=== PATIENT | male | born 1950 | race Caucasian/White ===

== ENCOUNTER → 2017-11-09 | Outpatient (CLI) | payer OTHER ==
--- NOTE | 2017-11-09 14:52 | XR ---
EXAMINATION TYPE: XR chest 2V DATE OF EXAM: 11/09/2017 COMPARISON: 12/13/2013 INDICATION: Physical, history of smoking TECHNIQUE: Frontal and lateral views of the chest are obtained. FINDINGS: The heart size is normal. The pulmonary vasculature is normal. The lungs are clear. There is hyperinflation. COPD could be considered. Some flattening the diaphrag ms is present. IMPRESSION: 1. Hyperinflation. Consider early emphysematous change.
== END | disposition home or self-care (01) ==
LOC: RADXRMAIN 12:44
PROVIDERS: ATTEND Family Medicine
DX: R91.8 Other nonspecific abnormal finding of lung field (principal)
CPT/HCPCS: 71046

== ENCOUNTER → 2018-02-11 | Outpatient (CLI) | payer MEDICARE ==
[2018-02-11 11:48] LABS: HCT 53.3 % (39.0-53.0); HGB 17.1 gm/dL (13.0-17.5); MCH 37.2 pg (25.0-35.0); MCHC 32.1 g/dL (31.0-37.0); Macrocytosis Marked; Mean Platelet Volume 7.6; Platelet Count 209 k/uL (150-450); RBC 4.59 m/uL (4.30-5.90); RDW 14.2 % (11.5-15.5); WBC 6.5 k/uL (3.8-10.6)
[2018-02-11 12:03] LABS: Anion Gap 8 mmol/L; Blood Urea Nitrogen 8 mg/dL (9-20); Carbon Dioxide 28 mmol/L (22-30); Chloride 103 mmol/L (98-107); Sodium 139 mmol/L (137-145)
== END | disposition home or self-care (01) ==
LOC: LABPAT 10:27
PROVIDERS: ATTEND Internal Medicine Interventional Cardiology
DX: Z01.812 Encounter for preprocedural laboratory examination (principal); I25.10 Atherosclerotic heart disease of native coronary artery without angina pectoris; I48.0 Paroxysmal atrial fibrillation; I11.0 Hypertensive heart disease with heart failure; I50.20 Unspecified systolic (congestive) heart failure
CPT/HCPCS: 36415; 80051; 82565; 84520; 85027; 86850; 86900; 86901

== ENCOUNTER 2018-02-28 06:27 | Day surgery (SDC) | payer MEDICARE ==
[~2018-02-28 06:27] MED LIST: ALPRAZolam 0.25 MG TAB PO PRN; ALPRAZolam 0.5 MG TAB PO PRN; ATORVASTATIN 80 MG TAB PO ONE; NITROGLYCERIN SL TABS 0.4 MG TAB SUBLINGUAL PRN; SODIUM CHLORIDE 0.9% 1,000 ML in EMPTY BAG 1 BAG IV ONE
[2018-02-28] MEDS ORDERED: ASPIRIN 325 MG TAB PO ONE (07:00)
[2018-02-28] MEDS ORDERED: MIDAZOLAM 2 MG/2 ML VIAL ONE (07:29)
[2018-02-28] MEDS ORDERED: ETOMIDATE 2 MG/ML 10 ML VIAL ONE (07:29)
[2018-02-28] MEDS ORDERED: fentaNYL (PF) 50 MCG/ML 2 ML AMP ONE (07:29)
[2018-02-28] MEDS ORDERED: IV FLUID CONTINUATION 1,000 ML IV ONE (07:37)
[2018-02-28] MEDS ORDERED: BENZOCAINE SPRAY 1 CAN MUCOUS MEM ONE ×2 (07:47→07:58)
[2018-02-28] MEDS ORDERED: LIDOCAINE 1% INJ 10MG/ML (20 ML MDV) ONE (08:11)
[2018-02-28] MEDS ORDERED: VERAPAMIL 2.5 MG/ML 2 ML AMP ONE (08:29)
[2018-02-28] MEDS ORDERED: LIDOCAINE 1% INJ 10MG/ML (20 ML MDV) SQ ONE (08:34)
[2018-02-28] MEDS ORDERED: MIDAZOLAM 2 MG/2 ML VIAL IV ONE (08:35)
[2018-02-28] MEDS ORDERED: HEPARIN SODIUM 1,000 UN/ML (10ML VL) ONE (08:35)
[2018-02-28] MEDS ORDERED: VERAPAMIL SYRINGE (5 MG/10 ML) INTRAARTER ONE (08:36)
[2018-02-28] MEDS ORDERED: BIVALIRUDIN 250 MG in SODIUM CHLORIDE 0.9% 50 ML IV ONE (08:49)
[2018-02-28] MEDS ORDERED: BIVALIRUDIN BOLUS 250 MG/50 ML IV ONE (08:49)
--- NOTE | 2018-02-28 08:49 | CE ---
CARDIAC ELECTROPHYSIOLOGY REPORT DATE OF SERVICE: February 28, 2018. PROCEDURE PERFORMED: Cardioversion of atrial fibrillation. INDICATION: This is a 68-year-old gentleman who was diagnosed recently with atrial fibrillation with RVR and also severe cardiomyopathy with EF between 10% to 15%. The JAJA is to rule out any cardiac source of embolization. COMPLICATION: None. LEVEL OF SEDATION: Deep sedation was performed with anesthesiologist in the room. PROCEDURE DESCRIPTION: After a transesophageal echocardiogram was performed and left atrial appendage was ruled out, we proceeded with cardioversion. The patient converted from atrial fibrillation to normal sinus mechanism using 200 joules on first attempt. CONCLUSION: Successful cardioversion of atrial fibrillation to normal sinus mechanism using 200 joules on first attempt. MMODL / IJN: [id number] /
[2018-02-28] MEDS ORDERED: TICAGRELOR 90 MG TAB ONE (08:53)
[2018-02-28] MEDS ORDERED: TICAGRELOR 90 MG TAB PO ONE (08:54)
[2018-02-28] MEDS ORDERED: IOPAMIDOL-370 125ML BTL INJ ONE (09:01)
[2018-02-28] MEDS ORDERED: PANTOPRAZOLE 40 MG TABLET PO PRN (09:06)
[2018-02-28] MEDS ORDERED: ZOLPIDEM 5 MG TAB PO PRN (09:07)
[2018-02-28] MEDS ORDERED: MAG HYDROX/AL HYDROX/SIMETH 30 ML CUP PO PRN (09:07)
[2018-02-28] MEDS ORDERED: NITROGLYCERIN SL TABS 0.4 MG TAB SUBLINGUAL PRN (09:07)
[2018-02-28] MEDS ORDERED: RX INFO: IV CONTRAST WAS GIVEN 1 EACH MISC MISCELLANE PRN (09:07)
[2018-02-28] MEDS ORDERED: ATROPINE SULFATE 0.1 MG/ML 10ML SYRINGE IV PRN (09:07)
[2018-02-28] MEDS ORDERED: SODIUM CHLORIDE 0.9% 1,000 ML IV SCH (09:15)
--- NOTE | 2018-02-28 09:55 | CC ---
CARDIAC CATHETERIZATION REPORT DATE OF SERVICE: February 28, 2017 PERFORMING PHYSICIAN: Gabino Johnson MD, landfill gas collection operator. PROCEDURE PERFORMED: 1. Selective right and left coronary angiogram. 2. Left heart catheterization. 3. Successful stenting of the mid LAD using 3.25 x 15 mm Xience drug-eluting stent with good angiographic results and reduction of stenosis from 70% to 0%. INDICATION: This is a pleasant 68-year-old gentleman who was diagnosed recently with atrial fibrillation as well as severe cardiomyopathy. He underwent a JAJA and cardioversion today and was brought today to undergo a heart catheterization. APPROACH: Right radial artery. COMPLICATION: None. LEVEL OF SEDATION: Moderate with sedation length of 32 minutes. PROCEDURE DESCRIPTION: After obtaining an informed consent, the patient was brought to cardiac laboratory veterinarian. The right radial artery was cannulated using micropuncture technique and a micropuncture wire passed easily then I placed a 6-Czech sheath in the right radial artery. After that I gave the patient 2 mg of verapamil IA and 10,000 units of heparin IV. After that, I did selective right and left coronary angiogram using JR4 and JL3.5 catheters. The left heart catheterization was performed using a pigtail catheter. The procedure was completed without any complication. After that I did intervene on the LAD, please see a separate paragraph for that. SELECTIVE CORONARY ANGIOGRAM: 1. The right coronary artery is a large caliber vessel. It is a dominant vessel. It is angiographically normal. It distally bifurcates into PDA and PLV branches both are angiographically normal. 2. The left main is angiographically normal. It bifurcates into left circumflex, ramus intermedius, and left anterior descending artery. 3. The left circumflex is a large caliber vessel. It is a nondominant vessel. It is angiographically normal. It gives rise into a large OM branch which appeared to be angiographically normal. 4. The ramus intermedius is a large caliber vessel and seems to be normal as well. 5. The LAD: The proximal LAD is normal. It gives rise into a large diagonal branch which appeared to be normal. The mid LAD has a lesion appeared to be in the range of 70%. This is just proximal to the bifurcation of second diagonal branch which appeared to be angiographically normal. The LAD distally appeared to be normal. PCI OF THE LAD: Anticoagulation was initiated using Angiomax. Subsequently I did engage the left main using JL3.5 guide. A run-through wire was used to wire to wire the LAD. After that, I did direct stenting on the lesion using 3.25 x 15 mm Xience drug-eluting stent where the stent was positioned under fluoroscopy guidance and deployed under 12 atmospheres for 20 seconds. Then I post dilated the stent using 3.25 mm NC balloon. The procedure was completed without any complication. CONCLUSION: 1. Severe disease involving the mid left anterior descending artery. 2. Successful stenting of the mid left anterior descending artery using 3.25 x 15 mm Xience drug-eluting stent with good angiographic results. POSTPROCEDURE MANAGEMENT: 1. Dual anti-platelet therapy. 2. Risk factors modifications. 3. Follow up with the patient. MMODL / IJN: [id number] /
--- NOTE | 2018-02-28 10:31 | LTR ---
February 28, 2018. Re: Sunil Mccarty Dear Dr. Azevedo: Mr. Sunil Mccarty underwent a heart catheterization today and that revealed severe disease involving the mid LAD. I did perform successful stenting of the LAD using drug- eluting stent with good angiographic results and without any complication. Thank you for allowing me to participate in his care and please do not hesitate to call if you have any question or concern. Sincerely, MD RUTHIE Tsang / [place]: [id number] /
--- NOTE | 2018-02-28 11:10 | ECHOT ---
TRANSESOPHAGEAL ECHOCARDIOGRAM DATE OF SERVICE: February 28, 2018 PERFORMING PHYSICIAN: Gabino Johnson MD PROCEDURE PERFORMED: Transesophageal echocardiogram. INDICATION: This is a pleasant 68-year-old gentleman who was diagnosed recently with severe cardiomyopathy as well as atrial fibrillation with uncontrolled heart rate. He was brought today to undergo a JAJA before cardioversion of the atrial fibrillation. The sodium number. COMPLICATION: None. LEVEL OF SEDATION: Sedation was deep sedation was performed. PROCEDURE DESCRIPTION: After obtaining an informed consent, explaining the procedure, benefits, risks, complications and alternatives, the patient was brought to the transesophageal echocardiogram suite. A pulse oximetry and heart rate monitors were attached to the patient prior to the procedure. The patient's throat was sprayed using lidocaine locally. Following that, the patient was turned into left lateral position. A bite guard was placed and the patient was then sedated with the above doses of Versed and fentanyl in divided doses. Following that, the transesophageal echocardiogram probe was advanced through the bite guard into the mid esophagus where 2-D echocardiogram images as well as color Doppler images of various cardiac structures were obtained. We evaluated the interatrial septum using 2-D echocardiogram, color Doppler, and contrast study. The procedure was completed. There were no complications. FINDINGS: The left ventricle is severely dilated. The left ventricular systolic function severely impaired with EF of 10% to 15% with global hypokinesia. Right ventricle appeared to be dilated as well. The left atrium and right atrium are severely dilated. The left atrial appendage appeared to be free from any thrombus. The interatrial septum appeared to be intact without any evidence of shunt. The aortic valve is trileaflet valve without stenosis or regurgitation. The mitral valve is thickened with severe MR. There was moderate to severe tricuspid regurgitation seen. CONCLUSION: 1. Normal left atrial appendage without any evidence of thrombus. 2. Intact interatrial septum without any evidence of shunt. 3. Severe biatrial enlargement. 4. Severely dilated left ventricle with severely impaired function and ejection fraction of 10% to 15% with global hypokinesia. 5. Dilated right ventricle with reduced function as well. 6. Thickened mitral valve leaflets with severe mitral regurgitation. 7. Moderate to severe tricuspid regurgitation was seen. 8. No evidence of pericardial effusion. MMODL / IJN: [id number] /
[2018-02-28] MEDS ORDERED: RIVAROXABAN 15 MG TAB PO SCH (17:30)
[2018-02-28] MEDS: METOPROLOL TARTRATE 25 MG TAB PO SCH (20:08)
[2018-03-01] MEDS ORDERED: CLOPIDOGREL 75 MG TAB PO STA (07:48)
[2018-03-01] MEDS: METOPROLOL TARTRATE 25 MG TAB PO SCH (08:24)
[2018-03-01 08:31] LABS: Basophils % (A) 1 %; Eosinophils # (A) 0.1 k/uL (0-0.7); Eosinophils % (A) 2 %; HCT 54.8 % (39.0-53.0); HGB 17.6 gm/dL (13.0-17.5); Lymphocytes # (A) 2.6 k/uL (1.0-4.8); Lymphocytes % (A) 47 %; MCH 36.7 pg (25.0-35.0); MCHC 32.2 g/dL (31.0-37.0); MCV 114.1 fL (80.0-100.0); Macrocytosis Marked; Mean Platelet Volume 7.9; Monocytes # (A) 0.5 k/uL (0-1.0); Monocytes % (A) 9 %; Neutrophils # (A) 2.1 k/uL (1.3-7.7); Neutrophils % (A) 39 %; Platelet Count 147 k/uL (150-450); RDW 13.3 % (11.5-15.5); WBC 5.4 k/uL (3.8-10.6)
[2018-03-01 08:35] LABS: Anion Gap 6 mmol/L; Blood Urea Nitrogen 11 mg/dL (9-20); Calcium 9.4 mg/dL (8.4-10.2); Carbon Dioxide 27 mmol/L (22-30); Chloride 104 mmol/L (98-107); Glucose 112 mg/dL (74-99); Potassium 4.5 mmol/L (3.5-5.1); Sodium 137 mmol/L (137-145)
[2018-03-01] MEDS ORDERED: SPIRONOLACTONE 25 MG TAB PO SCH (09:00)
[2018-03-01] MEDS ORDERED: CLOPIDOGREL 75 MG TAB PO SCH (09:00)
[2018-03-01] MEDS ORDERED: ASPIRIN 81 MG PO SCH (09:00)
[2018-03-01] MEDS ORDERED: LISINOPRIL 2.5 MG TAB PO SCH (09:00)
[2018-03-01 10:13] VITALS: BP 124/75; PULSE 60; RESP 18; TEMP 97.6
[2018-03-01 10:32] VITALS: BMI 22.1
--- NOTE | 2018-03-01 10:38 | DS ---
DISCHARGE SUMMARY ADMISSION DATE: 02/28/2018 DISCHARGE DATE: 03/01/2018 BRIEF HISTORY: This is a pleasant 68-year-old gentleman who was diagnosed recently with cardiomyopathy as well as atrial fibrillation with RVR. He was admitted to the hospital yesterday and underwent a JAJA and cardioversion then subsequently underwent a heart catheterization and stenting of the LAD. The following day he is doing good. He denies having any chest pain or chest discomfort. He is going to be discharged on dual anti-platelet therapy along with Xarelto 50 mg p.o. daily. I will follow up with the patient in a week in the office. MMODL / IJN: [id number] /
[2018-03-01] MEDS ORDERED: ATORVASTATIN 80 MG TAB PO SCH (21:00)
== END 2018-03-01 10:54 | disposition home or self-care (01) ==
LOC: CATHCVL 06:27 → 3SCARD 09:02 → CATHCVL 03-01 10:54
PROVIDERS: ATTEND Internal Medicine Interventional Cardiology
DX: I48.0 Paroxysmal atrial fibrillation (principal); I42.9 Cardiomyopathy, unspecified; I08.1 Rheumatic disorders of both mitral and tricuspid valves; I25.10 Atherosclerotic heart disease of native coronary artery without angina pectoris; F17.210 Nicotine dependence, cigarettes, uncomplicated; I11.9 Hypertensive heart disease without heart failure; K21.9 Gastro-esophageal reflux disease without esophagitis; Z90.79 Acquired absence of other genital organ(s); Z79.82 Long term (current) use of aspirin; Z79.01 Long term (current) use of anticoagulants; Z79.899 Other long term (current) drug therapy; Z85.46 Personal history of malignant neoplasm of prostate
CPT/HCPCS: 93312; 93325; 93458; 92960; 80048; 85025; C9600; C1887; C1725; C1769; C1894; C1874; J2250; J2001; J3010; J0583; J1644; Q9967; 93320

== ENCOUNTER → 2018-04-12 | Outpatient (CLI) | payer MEDICARE ==
[2018-04-12 14:48] LABS: HCT 50.7 % (39.0-53.0); HGB 16.4 gm/dL (13.0-17.5); MCH 34.9 pg (25.0-35.0); MCHC 32.3 g/dL (31.0-37.0); MCV 108.2 fL (80.0-100.0); Macrocytosis Moderate; Mean Platelet Volume 6.4; Platelet Count 259 k/uL (150-450); RBC 4.69 m/uL (4.30-5.90); WBC 8.4 k/uL (3.8-10.6)
[2018-04-12 14:53] LABS: Anion Gap 8 mmol/L; Blood Urea Nitrogen 9 mg/dL (9-20); Carbon Dioxide 31 mmol/L (22-30); Chloride 101 mmol/L (98-107); Potassium 4.7 mmol/L (3.5-5.1); Sodium 140 mmol/L (137-145)
== END | disposition home or self-care (01) ==
LOC: LABPAT 14:00
PROVIDERS: ATTEND Internal Medicine Interventional Cardiology
DX: Z01.812 Encounter for preprocedural laboratory examination (principal); I48.0 Paroxysmal atrial fibrillation; E78.1 Pure hyperglyceridemia; I11.0 Hypertensive heart disease with heart failure; I50.22 Chronic systolic (congestive) heart failure
CPT/HCPCS: 36415; 80051; 82565; 84520; 85027

== ENCOUNTER 2018-04-21 10:32 | Day surgery (SDC) | payer MEDICARE, OTHER ==
[2018-04-19 11:51] VITALS: BMI 22.2
[~2018-04-21 10:32] MED LIST changes: -ALPRAZolam 0.25 MG TAB PO PRN; -ALPRAZolam 0.5 MG TAB PO PRN; -ATORVASTATIN 80 MG TAB PO ONE; -NITROGLYCERIN SL TABS 0.4 MG TAB SUBLINGUAL PRN; +SODIUM CHLORIDE 0.9% 1,000 ML IV SCH; -SODIUM CHLORIDE 0.9% 1,000 ML in EMPTY BAG 1 BAG IV ONE
[2018-04-21] MEDS ORDERED: GLYCOPYRROLATE 0.2 MG/ML 2 ML VIAL ONE (12:00)
[2018-04-21] MEDS ORDERED: MIDAZOLAM 2 MG/2 ML VIAL ONE (12:00)
[2018-04-21] MEDS ORDERED: ETOMIDATE 2 MG/ML 10 ML VIAL ONE (12:00)
[2018-04-21 13:06] VITALS: TEMP 97
--- NOTE | 2018-04-21 13:08 | CE ---
CARDIAC ELECTROPHYSIOLOGY REPORT DATE OF SERVICE: April 21, 2018 PROCEDURE PERFORMED: Cardioversion. REASON FOR THE STUDY: This is a pleasant 68-year-old gentleman with history of severe cardiomyopathy and EF of 20% as well as paroxysmal atrial fibrillation and history of coronary artery disease and prior stenting of the LAD, continues to have shortness of breath with exertion. He underwent a JAJA cardioversion a few weeks ago, but he came back to atrial fibrillation. I did start the patient on amiodarone and brought him today to undergo cardioversion again. COMPLICATION: None. LEVEL OF SEDATION: Deep sedation was performed. PROCEDURE DESCRIPTION: The patient cardioverted from atrial fibrillation to normal sinus mechanism using 200 joules on first attempt. CONCLUSION: Successful cardioversion of atrial fibrillation to normal sinus mechanism using 200 joules on first attempt. MMODL / IJN: [id number] /
[2018-04-21 14:53] VITALS: RESP 16
[2018-04-21 16:12] VITALS: BP 90/63; PULSE 47
[2018-04-21] MEDS ORDERED: RIVAROXABAN 15 MG TAB PO SCH (17:30)
[2018-04-21] MEDS ORDERED: ATORVASTATIN 80 MG TAB PO SCH (21:00)
[2018-04-22] MEDS ORDERED: PANTOPRAZOLE 40 MG TABLET PO PRN (07:30)
[2018-04-22] MEDS ORDERED: CLOPIDOGREL 75 MG TAB PO SCH (09:00)
[2018-04-22] MEDS ORDERED: SPIRONOLACTONE 25 MG TAB PO SCH (09:00)
[2018-04-22] MEDS ORDERED: ASPIRIN 81 MG PO SCH (09:00)
[2018-04-22] MEDS ORDERED: LISINOPRIL 2.5 MG TAB PO SCH (09:00)
== END 2018-04-21 16:30 | disposition home or self-care (01) ==
LOC: CATHCVL 10:32
PROVIDERS: ATTEND Internal Medicine Interventional Cardiology
DX: I48.0 Paroxysmal atrial fibrillation (principal); I42.9 Cardiomyopathy, unspecified; I25.10 Atherosclerotic heart disease of native coronary artery without angina pectoris; I11.0 Hypertensive heart disease with heart failure; I50.20 Unspecified systolic (congestive) heart failure; E78.5 Hyperlipidemia, unspecified; I08.1 Rheumatic disorders of both mitral and tricuspid valves; K21.9 Gastro-esophageal reflux disease without esophagitis; F17.210 Nicotine dependence, cigarettes, uncomplicated; Z95.5 Presence of coronary angioplasty implant and graft; Z79.01 Long term (current) use of anticoagulants; Z79.02 Long term (current) use of antithrombotics/antiplatelets; Z79.82 Long term (current) use of aspirin; Z79.899 Other long term (current) drug therapy; Z82.49 Family history of ischemic heart disease and other diseases of the circulatory system; Z85.46 Personal history of malignant neoplasm of prostate
CPT/HCPCS: 92960; J2250

== ENCOUNTER → 2018-07-20 | Outpatient (CLI) | payer MEDICARE ==
[2018-07-20 10:39] LABS: HCT 41.8 % (39.0-53.0); HGB 13.7 gm/dL (13.0-17.5); MCH 33.5 pg (25.0-35.0); MCHC 32.7 g/dL (31.0-37.0); MCV 102.5 fL (80.0-100.0); Macrocytosis Slight; Platelet Count 344 k/uL (150-450); RBC 4.08 m/uL (4.30-5.90); RDW 12.5 % (11.5-15.5); WBC 8.4 k/uL (3.8-10.6)
[2018-07-20 11:41] LABS: Anion Gap 8 mmol/L; Blood Urea Nitrogen 13 mg/dL (9-20); Carbon Dioxide 25 mmol/L (22-30); Chloride 104 mmol/L (98-107); Glucose 93 mg/dL (74-99); Potassium 4.5 mmol/L (3.5-5.1); Sodium 137 mmol/L (137-145)
== END | disposition home or self-care (01) ==
LOC: LABPAT 09:31
PROVIDERS: ATTEND Internal Medicine Clinical Cardiac Electrophysiology
DX: Z01.812 Encounter for preprocedural laboratory examination (principal); I50.22 Chronic systolic (congestive) heart failure; I42.8 Other cardiomyopathies
CPT/HCPCS: 36415; 80051; 82565; 82947; 84520; 85027

== ENCOUNTER 2018-07-28 11:25 | Day surgery (SDC) | payer MEDICARE ==
[~2018-07-28 11:25] MED LIST changes: +ceFAZolin 1,000 MG in SODIUM CHLORIDE 0.9% IRRIGATIO 250 ML IRRIGATION ONE; +ceFAZolin IN SWFI 2 GM/20 ML SYRINGE IVP STA
[2018-07-28] MEDS: SODIUM CHLORIDE 0.9% 1,000 ML IV SCH (11:45)
[2018-07-28] MEDS ORDERED: LIDOCAINE 1% INJ 10MG/ML (20 ML MDV) ONE ×2 (17:10)
[2018-07-28] MEDS ORDERED: fentaNYL (PF) 50 MCG/ML 2 ML AMP ONE (17:13)
[2018-07-28] MEDS ORDERED: PROPOFOL 10 MG/ML 20 ML VIAL IV ONE (17:13)
[2018-07-28] MEDS ORDERED: MIDAZOLAM 2 MG/2 ML VIAL ONE (17:13)
[2018-07-28] MEDS ORDERED: IOPAMIDOL-250 50ML BTL IV ONE (17:29)
[2018-07-28] MEDS: ceFAZolin IN SWFI 2 GM/20 ML SYRINGE IVP ONE ×2 (17:47→17:49)
[2018-07-28] MEDS ORDERED: LIDOCAINE 1% INJ 10MG/ML (20 ML MDV) SQ ONE ×2 (17:57→18:04)
[2018-07-28] MEDS ORDERED: ACETAMINOPHEN TAB 325 MG TAB PO PRN (19:05)
[2018-07-28] MEDS ORDERED: PANTOPRAZOLE 40 MG TABLET PO PRN (19:06)
--- NOTE | 2018-07-28 19:12 | P.PRLE ---
RE: Sunil Mccarty Dear Dr. Jay Barber underwent successful dual-chamber ICD for management of severe cardio myopathy for primary prevention of sudden cardiac . He also has s ignificant sick sinus syndrome with resting sinus bradycardia. I have now started him on metoprolol succinate 50 g by mouth daily which she will take in addition to all his other medications He will continue to follow with you and Dr. Lewis as before Thank you for entrusting me with the care of the patient Warm regards Sincerely Mode Armstrong
[2018-07-28] MEDS ORDERED: ACETAMINOPHEN IV (For NPO) 1,000 MG in EMPTY BAG 1 BAG IVPB ONE (19:30)
[2018-07-28] MEDS: LACTATED RINGERS 1,000 ML IV SCH (19:44)
[2018-07-28 20:49] VITALS: BMI 22.8
[2018-07-28] MEDS ORDERED: ATORVASTATIN 80 MG TAB PO SCH (21:00)
[2018-07-28] MEDS: METOPROLOL SUCCINATE (ER) 50 MG TAB.ER.24H PO SCH (21:21)
[2018-07-28] MEDS: HYDROcodone/APAP 5-325MG 1 EACH TAB PO PRN (21:23)
[2018-07-28] MEDS: ceFAZolin IN SWFI 2 GM/20 ML SYRINGE IVP SCH (23:13)
[2018-07-28 23:53] VITALS: RESP 18
--- NOTE | 2018-07-29 00:04 | PCN ---
PROCEDURE NOTE Mr. Mccarty is a 68-year-old male patient with severe cardiomyopathy and congestive heart failure and severe sinus bradycardia that required discontinuation of beta diego. He was brought in for dual-chamber ICD for primary prevention of sudden cardiac and management of sinus bradycardia. DESCRIPTION OF PROCEDURE: The patient is brought to the EP lab in a fasting state. Written informed consent was obtained prior to the procedure. The left shoulder area was prepped and draped as per protocol. 1% lidocaine was used for local anesthesia. A 4 cm incision was made parallel to the deltopectoral groove, about 1.5 cm medial to it. The incision was carried down to the level of the pectoralis muscle. A subfascial pocket was made. Hemostasis was assured. The left axillary vein was accessed at 2 separate points under fluoroscopy and via appropriately-sized introducer sheaths, 2 leads were positioned in the right heart. The atrial lead was a [employer] model #1944, 52 cm in length and serial number [id number]. The P waves were 2.3 mV, pacing impedance 580 ohms, pacing threshold 0.5 V at 0.5 milliseconds, 10 V test was negative. This was a passive lead. The ICD lead was an active fixation lead, [employer] model number [id number], 58 cm length and serial number [id number]. R-waves 11.7 mV. Pacing impedance 650 ohms. Pacing threshold 0.5 V at 0.5 milliseconds. 10 V test negative. Both leads were secured to the underlying pectoralis fascia using 2 nonabsorbable sutures. Pocket was irrigated with antibiotic solution. Leads were connected to the generator, the ([employer] model CD 4 CD 2411-36 Q serial number [id number]). DFT testing under anesthesia: A DC fib shock was used to induce ventricular fibrillation. This was adequately and appropriately detected at least sensitivity and successfully internally defibrillated with a 10-joule shock. Charge time 1.8 seconds. Shock impedance 68 ohms. No post shock noise. This was a cath total vector. Device was programmed to DDDR at 60-130 ppm. Immediate programming was performed. The VIP mode to minimize RV pacing was programmed. The patient tolerated the procedure well without any acute complications. RESULTS: Successful dual-chamber ICD implantation for management of his severe sick sinus syndrome and the risk of sudden cardiac in the future on account of severe cardiomyopathy. PLAN: Resume the long-acting beta blockers once again and continue all other cardiac medications. MMODL / IJN: [id number] /
[2018-07-29] MEDS: SODIUM CHLORIDE 0.9% 1,000 ML IV SCH (02:29)
[2018-07-29] MEDS: LACTATED RINGERS 1,000 ML IV SCH (02:30)
[2018-07-29] MEDS: ceFAZolin IN SWFI 2 GM/20 ML SYRINGE IVP SCH ×3 (05:25→16:54)
[2018-07-29] MEDS: HYDROcodone/APAP 5-325MG 1 EACH TAB PO PRN ×2 (05:45→12:26)
--- NOTE | 2018-07-29 07:47 | XR ---
EXAMINATION TYPE: XR chest 2V DATE OF EXAM: 07/29/2018 COMPARISON: Prior chest x-ray 11/09/2017 HISTORY: Lead placement check TECHNIQUE: Frontal and lateral views of the chest are obtained on 3 images. FINDINGS: Generator is in the left pectoral region, there are leads in the right atrium and ventricl e. No pneumothorax or pleural effusion. There are overlying cardiac leads. Heart is stable. Prominent lung volumes suggest underlying COPD. IMPRESSION: No evident complication status post lead placement.
--- NOTE | 2018-07-29 07:57 | P.DS ---
Providers Attending physician: Mode Armstrong Primary care physician: [facility] Course: Patient is doing well No chest discomfort dizziness lightheadedness palpitations or shortness of breath He is lying comfortably in bed Minimal soakage in the dressing no hematoma Vitals are stable afebrile 98.1F pulse rate in the 50s and 60s he states decreased blood pressure 102/67 mmHg Breath sounds are clear no rhonchi no crackles Heart sounds are normal no S3 gallop Abdomen is soft nontender Extremities warm no edema Impression Stable congestive heart failure with severe cardio myopathy and severe symptom Mattix sick sinus syndrome status post dual-chamber ICD Plan Discharge home after completion of IV antibiotics and device interrogation Following the device clinic within the week in follow Dr. Johnson as previously scheduled New medication is Toprol-XL 50 mg daily Plan - Discharge Summary Discharge Rx Participant: No New Discharge Prescriptions: New Metoprolol Succinate (ER) [Toprol XL] 50 mg PO DAILY #90 tab No Action Omeprazole [PriLOSEC] 20 mg PO DAILY PRN PRN Reason: acid reflux Lisinopril [Zestril] 2.5 mg PO DAILY Spironolactone [Aldactone] 25 mg PO DAILY Aspirin [Adult Low Dose Aspirin EC] 81 mg PO DAILY Clopidogrel [Plavix] 75 mg PO DAILY #90 tab Rivaroxaban [Xarelto] 15 mg PO W/SUPPER #90 tab Atorvastatin [Lipitor] 80 mg PO HS #90 tab Discharge Medication List Omeprazole [PriLOSEC] 20 mg PO DAILY PRN 12/19/13 [History] Aspirin [Adult Low Dose Aspirin EC] 81 mg PO DAILY 02/24/18 [History] Lisinopril [Zestril] 2.5 mg PO DAILY 02/24/18 [History] Spironolactone [Aldactone] 25 mg PO DAILY 02/24/18 [History] Atorvastatin [Lipitor] 80 mg PO HS #90 tab 03/01/18 [Rx] Clopidogrel [Plavix] 75 mg PO DAILY #90 tab 03/01/18 [Rx] Rivaroxaban [Xarelto] 15 mg PO W/SUPPER #90 tab 03/01/18 [Rx] Metoprolol Succinate (ER) [Toprol XL] 50 mg PO DAILY #90 tab 07/28/18 [Rx] Follow up Appointment(s)/Referral(s): Gabino Johnson MD [STAFF PHYSICIAN] - 1 Week (Device clinic follow-up within [address] Johnson as previously scheduled New medication metoprolol succinate 50 g by mouth daily Continue all other medications including xarelto) Activity/Diet/Wound Care/Special Instructions: PATIENT EDUCATION MATERIAL Instructions following a heart rhythm device implant. 1. Keep dressing DRY for 5 DAYS. You may cover the area with Saran or Cling Wrap, prior to a shower. 2. The dressing will be removed in the Device Clinic at [facility]. Absorbable sutures were used to close the wound. 3. Avoid raising the left arm above the shoulder level. 4 week restriction 4. Avoid arm movements, like backscratching, rubbing the head, or pulling on a cord. 4 weeks restriction 5. Gentle range of motion movements of the shoulder, closest to the incision should be performed to avoid a frozen shoulder. (Pendulum exercises of the shoulder) 6. The opposite arm may be used freely. 7. Avoid driving for 7 days. 8. Avoid activities such as golfing, swimming, weed whacking, lifting more than 10 pounds weight, bowling, gymnastics and weight training/lifting. (6 weeks restriction) 9. Activities such as wood chopping with an axe, pull-ups in the gymnasium, power lifting, arc-welding, being close to home induction cooktops will always be a problem. 10. Arm sling is only a reminder not to raise the arm above the head. You do not need to keep the arm completely immobilized. Your free to move the arm and use it and for normal activities. In case of any problems, please call [facility], [place], @ [phone], Attention: Device Clinic Device clinic follow-up in 5 days Follow-up with primary vice president risk management in 2-3 months Follow-up with Dr. Lewis aspirins is scheduled New medication metoprolol succinate 50 g by mouth daily Continue all other medications as before including xarelto
[2018-07-29] MEDS: METOPROLOL SUCCINATE (ER) 50 MG TAB.ER.24H PO SCH (08:27)
[2018-07-29] MEDS ORDERED: CLOPIDOGREL 75 MG TAB PO SCH (09:00)
[2018-07-29] MEDS ORDERED: LISINOPRIL 2.5 MG TAB PO SCH (09:00)
[2018-07-29] MEDS ORDERED: SPIRONOLACTONE 25 MG TAB PO SCH (09:00)
[2018-07-29] MEDS ORDERED: ASPIRIN 81 MG PO SCH (09:00)
[2018-07-29 16:06] VITALS: BP 110/76; PULSE 65; TEMP 97.4
== END 2018-07-29 17:12 | disposition home or self-care (01) ==
LOC: CATHEP 11:25 → 1SOBS 18:52 → CATHEP 07-29 17:12
PROVIDERS: ATTEND Internal Medicine Clinical Cardiac Electrophysiology
DX: I49.5 Sick sinus syndrome (principal); I42.9 Cardiomyopathy, unspecified; I25.10 Atherosclerotic heart disease of native coronary artery without angina pectoris; I11.0 Hypertensive heart disease with heart failure; I50.22 Chronic systolic (congestive) heart failure; I48.0 Paroxysmal atrial fibrillation; E78.5 Hyperlipidemia, unspecified; K21.9 Gastro-esophageal reflux disease without esophagitis; C61 Malignant neoplasm of prostate; Z72.0 Tobacco use; Z79.01 Long term (current) use of anticoagulants; Z79.82 Long term (current) use of aspirin; Z79.02 Long term (current) use of antithrombotics/antiplatelets; Z79.899 Other long term (current) drug therapy; Z95.5 Presence of coronary angioplasty implant and graft; Z82.49 Family history of ischemic heart disease and other diseases of the circulatory system
CPT/HCPCS: 93641; 33249; 71046; C1769 ×2; C1892 ×2; C1721; C1898; C1777; J2250; J0690 ×3; J2001; J3010; J2704; Q9966

== ENCOUNTER → 2019-05-19 | Outpatient (CLI) | payer MEDICARE ==
--- NOTE | 2019-05-19 14:52 | NM ---
EXAMINATION TYPE: NM bone scan whole body DATE OF EXAM: 05/19/2019 COMPARISON: NONE HISTORY: Osteoarthritis Delayed whole-body scanning was performed following the injection of 26.4 mCi Tc 99m MDP. Images acq uired 4 hours post injection. FINDINGS: Multifocal nearly symmetric uptake is seen of the glenohumeral joints, acromioclavicular joints, ster noclavicular joints, sacroiliac joints, and to a lesser degree of the femoral acetabular joints. Find ings are also seen of the elbows, wrists, knees, and mid feet. No focal suspicious uptake is seen. Ph ysiologic excretion from the renal pelvises sees into the urinary bladder. IMPRESSION: Degenerative changes of the axial and appendicular skeleton with no suspicious focal radi otracer uptake to suggest neoplastic involvement of the osseous structures.
== END | disposition home or self-care (01) ==
LOC: RADNMMAIN 09:54
PROVIDERS: ATTEND Family Medicine
DX: M19.90 Unspecified osteoarthritis, unspecified site (principal)
CPT/HCPCS: 78306; A9503

== ENCOUNTER 2020-09-20 08:54 | Day surgery (SDC) | payer MEDICARE ==
[~2020-09-20 08:54] MED LIST changes: +LACTATED RINGERS 1,000 ML IV SCH; -SODIUM CHLORIDE 0.9% 1,000 ML IV SCH; -ceFAZolin 1,000 MG in SODIUM CHLORIDE 0.9% IRRIGATIO 250 ML IRRIGATION ONE; -ceFAZolin IN SWFI 2 GM/20 ML SYRINGE IVP STA
[2020-09-20 10:09] VITALS: TEMP 97.7
[2020-09-20] MEDS ORDERED: LACTATED RINGERS 1,000 ML IV ONE (10:09)
[2020-09-20] MEDS ORDERED: LIDOCAINE 1% INJ 10MG/ML (20 ML MDV) ONE (10:45)
[2020-09-20] MEDS ORDERED: PHENYLEPHRINE-0.9% NACL SYG 1,000 MCG/10 ML SYRINGE ONE (10:45)
[2020-09-20] MEDS ORDERED: PROPOFOL 10 MG/ML 20 ML VIAL IV ONE (10:45)
--- NOTE | 2020-09-20 11:09 | P.HPIHPCON ---
History of Present Illness H&P Date: 09/20/20 62-year-old male presents today for colonoscopy. He has had a recent positive cologuard test. His last colonoscopy was approximately 5 years ago. He denies any blood in his stool. Denies any family history of colon cancer. He has had no recent abdominal pain. Consent for Procedure: I have explained the operation/procedure to the patient, including the risks, benefits, side effects, alternative therapies (including not receiving the proposed treatment or service), the likelihood of the patient achieving his/her goals, and potential recuperation problems for the procedure/sedation/analgesia, as well as any blood products, if indicated. I also explained to the patient the risks, benefits and side effects of the alternatives, as well as the risks related to not receiving the proposed procedure, care, treatment, or services. - Review of Systems All systems: negative Past Medical History Past Medical History: Atrial Fibrillation, Cancer, GERD/Reflux, Musculoskeletal Disorder Additional Past Medical History / Comment(s): PROSTATE CA, STATES HAS MULT. 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 Past Anesthesia/Blood Transfusion Reactions: No Reported Reaction Additional Past Anesthesia/Blood Transfusion Reaction / Comment(s): difficulty with ether Past Psychological History: Anxiety Additional Past Alcohol Use History / Comment(s): started smoking age 27 "just couple a day" Past Drug Use History: Marijuana - Past Family History Mother Family Medical History: No Reported History, Vascular Disorder Additional Family Medical History / Comment(s): varicose veins Brother(s) Family Medical History: Vascular Disorder Additional Family Medical History / Comment(s): varicose veins Sister(s) Family Medical History: Vascular Disorder Additional Family Medical History / Comment(s): varicose veins Medications and Allergies Home Medications Medication Instructions Recorded Confirmed Type Omeprazole [PriLOSEC] 20 mg PO DAILY PRN 12/19/13 09/20/20 History Aspirin [Adult Low Dose Aspirin EC] 81 mg PO DAILY 02/24/18 09/20/20 History Spironolactone [Aldactone] 25 mg PO DAILY 02/24/18 09/20/20 History lisinopriL [Zestril] 2.5 mg PO DAILY 02/24/18 09/20/20 History Atorvastatin [Lipitor] 80 mg PO HS #90 tab 03/01/18 09/20/20 Rx Rivaroxaban [Xarelto] 15 mg PO W/SUPPER #90 tab 03/01/18 09/20/20 Rx Metoprolol Succinate (ER) [Toprol 50 mg PO DAILY #90 tab 07/28/18 09/20/20 Rx XL] Digoxin [Lanoxin] 125 PO QAM 09/20/20 History Allergies Allergy/AdvReac Type Severity Reaction Status Date / Time No Known Allergies Allergy Verified 07/25/18 15:25 Surgical - Exam Osteopathic Statement: *. No significant issues noted on an osteopathic structural exam other than those noted in the History and Physical/Consult. Vital Signs Temp Pulse Resp BP Pulse Ox 97.7 F 78 18 121/71 98 09/20/20 10:08 09/20/20 10:09/20/20 10:08 09/20/20 10:09/20/20 10:08 - General no distress - Neck trachea midline - Respiratory normal respiratory effort - Abdomen Abdomen: soft, non tender Assessment and Plan Plan: 60-year-old male presents today after a recent finding of positive cologuard test. Further evaluation to be performed with colonoscopy. Risks, benefits and alternatives were provided to the patient.
--- NOTE | 2020-09-20 11:12 | P.PCN ---
Date of Procedure: 09/20/20 Preoperative Diagnosis: Positive Cologuard Test Postoperative Diagnosis: Hepatic flexure polyp Diverticulosis Procedure(s) Performed: Colonoscopy with hot snare polypectomy Anesthesia: MAC Surgeon: Praveen Garcia Pathology: other (Polyp of the hepatic flexure) Condition: stable Disposition: same day Indications for Procedure: 70-year-old male with recent finding of a positive cologuard test. Plan is for further evaluation with colonoscopy. Risks, benefits and alternatives were provided to the patient. Operative Findings: Polyp of the hepatic flexure Diverticulosis Description of Procedure: The patient was brought to the endoscopy suite and placed in left lateral decubitus position. Adequate sedation was achieved using conscious sedation. A digital rectal exam was performed and mild internal hemorrhoids were palpated. An endoscope was then placed in the rectum and advanced to the cecum as identified by landmarks including the appendiceal orifice and the ileocecal valve.. Colonoscope was then slowly withdrawn, examining for any mucosal abnormality. The cecum, ascending, transverse, descending and sigmoid colon were visualized adequately. There were no obvious large neoplastic lesions. A small polyp was noted in the hepatic flexure. This was removed with hot snare polypectomy. Hemostasis was maintained. There was evidence of diverticulosis scattered throughout the colon, mostly located in the sigmoid and descending col on.. Retroflexion was performed in the rectum and internal hemorrhoids were visible. Excess air was removed, the colonoscope withdrawn and the procedure terminated. The patient was then transferred to the recovery unit in stable condition. Repeat colonoscopy should be performed in 5 years.
[2020-09-20 11:16] VITALS: RESP 16
[2020-09-20 11:40] VITALS: BP 106/78; PULSE 72
== END 2020-09-20 11:45 | disposition home or self-care (01) ==
LOC: ORWHC2ENDO 08:54
PROVIDERS: ATTEND Surgery
DX: D12.3 Benign neoplasm of transverse colon (principal); K57.30 Diverticulosis of large intestine without perforation or abscess without bleeding; K64.8 Other hemorrhoids; R19.5 Other fecal abnormalities; I48.91 Unspecified atrial fibrillation; K21.9 Gastro-esophageal reflux disease without esophagitis; Z85.46 Personal history of malignant neoplasm of prostate; Z85.820 Personal history of malignant melanoma of skin; Z95.810 Presence of automatic (implantable) cardiac defibrillator; I08.9 Rheumatic multiple valve disease, unspecified; F41.9 Anxiety disorder, unspecified; Z98.890 Other specified postprocedural states; S40.851D Superficial foreign body of right upper arm, subsequent encounter; S70.35 Superficial foreign body of thigh; S80.851D Superficial foreign body, right lower leg, subsequent encounter; Z87.81 Personal history of (healed) traumatic fracture; F17.200 Nicotine dependence, unspecified, uncomplicated; Z82.49 Family history of ischemic heart disease and other diseases of the circulatory system; Z79.01 Long term (current) use of anticoagulants; Z79.82 Long term (current) use of aspirin; Z79.899 Other long term (current) drug therapy
CPT/HCPCS: 88305; 45385; J2001; J2370; J2704

== ENCOUNTER 2023-03-10 16:31 | Inpatient (IN) | payer MEDICARE ==
[2023-03-10] MEDS ORDERED: MORPHINE SULFATE 4 MG/ML SYRINGE IV STA (17:08)
[2023-03-10] MEDS ORDERED: SODIUM CHLORIDE 0.9% 1,000 ML IV STA ×5 (17:08→22:44)
[2023-03-10] MEDS ORDERED: ONDANSETRON 4 MG/2 ML VIAL IVP STA (17:08)
--- NOTE | 2023-03-10 17:14 | ED ---
Weakness HPI - General Chief complaint: Weakness Stated complaint: Weak Time Seen by Provider: 03/10/23 16:33 Source: patient, RN notes reviewed, old records reviewed, Caregiver Mode of arrival: EMS Limitations: no limitations, physical limitation - History of Present Illness Initial comments: This is a 73-year-old male poor historian and patient presents today for low blood pressure weakness per EMS. Patient has increasing neck pain and hoarse voice, Patient states he has a wound on his neck has been draining causing him pain. Patient is a poor historian secondary to medical history and current complaints, Per caregivers patient is a significant smoker with chronic alcoholism history, Patient is disinterested in participating in history of present illness EMS was called by family due to deteriorating condition MD Complaint: generalized weakness, lack of energy, difficulty walking -: days(s) Location: generalized Severity: severe Severity scale (1-10): 10 Quality: constant Consistency: constant Improves with: none Worsens with: none Context: recent illness, history of similar Associated Symptoms: confusion, loss of appetite, shortness of breath - Related Data Home Medications Medication Instructions Recorded Confirmed Omeprazole [PriLOSEC] 20 mg PO DAILY 12/19/13 03/10/23 Aspirin [Adult Low Dose Aspirin EC] 81 mg PO DAILY 02/24/18 03/10/23 Spironolactone [Aldactone] 25 mg PO DAILY 02/24/18 03/10/23 lisinopriL [Zestril] 2.5 mg PO HS 02/24/18 03/10/23 Digoxin [Lanoxin] 125 mcg PO DAILY 09/20/20 03/10/23 Amiodarone [Cordarone] 200 mg PO BID 03/10/23 03/10/23 Ascorbic Acid [Vitamin C] 1,000 mg PO DAILY 03/10/23 03/10/23 Cholecalciferol [Vitamin D3 (25 25 mcg PO DAILY 03/10/23 03/10/23 Mcg = 1000 Iu)] Metoprolol Succinate [Toprol XL] 200 mg PO BID 03/10/23 03/10/23 Rivaroxaban [Xarelto] 20 mg PO HS 03/10/23 03/10/23 Vitamin E (Dl,Tocopheryl Acet) 400 unit PO DAILY 03/10/23 03/10/23 [Vitamin E (400 Iu = 180 mg)] Previous Rx's Medication Instructions Recorded Atorvastatin [Lipitor] 80 mg PO HS #90 tab 03/01/18 Allergies Allergy/AdvReac Type Severity Reaction Status Date / Time No Known Allergies Allergy Verified 03/10/23 17:44 Review of Systems ROS Statement: Those systems with pertinent positive or pertinent negative responses have been documented in the HPI. ROS Other: All systems not noted in ROS Statement are negative. Past Medical History Past Medical History: Atrial Fibrillation, Cancer, GERD/Reflux, Musculoskeletal Disorder Additional Past Medical History / Comment(s): PROSTATE CA, STATES HAS MULT. 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 Past Anesthesia/Blood Transfusion Reactions: No Reported Reaction Additional Past Anesthesia/Blood Transfusion Reaction / Comment(s): difficulty with ether Past Psychological History: Anxiety Past Drug Use History: Marijuana - Past Family History Mother Family Medical History: No Reported History, Vascular Disorder Additional Family Medical History / Comment(s): varicose veins Brother(s) Family Medical History: Vascular Disorder Additional Family Medical History / Comment(s): varicose veins Sister(s) Family Medical History: Vascular Disorder Additional Family Medical History / Comment(s): varicose veins General Exam - General Exam Comments Initial Comments: no stridor, actively necrotic neck purulence and drainage Limitations: altered mental status, physical limitation General appearance: alert, anxious, lethargic, in distress, cachectic Head exam: Present: atraumatic, normocephalic, normal inspection Eye exam: Present: normal appearance, PERRL, EOMI. Absent: scleral icterus, conjunctival injection, periorbital swelling ENT exam: Present: other (Patient does have significant open wound anterior right aspect of his neck draining purulent material, malodorous) Neck exam: Present: normal inspection. Absent: tenderness, meningismus, lymphadenopathy Respiratory exam: Present: wheezes, decreased breath sounds, prolonged exp iratory. Absent: respiratory distress, rales, rhonchi, stridor Cardiovascular Exam: Present: regular rate, normal rhythm, normal heart sounds. Absent: systolic murmur, diastolic murmur, rubs, gallop, clicks GI/Abdominal exam: Present: soft, normal bowel sounds. Absent: distended, tenderness, guarding, rebound, rigid Extremities exam: Present: normal inspection, full ROM, normal capillary refill. Absent: tenderness, pedal edema, joint swelling, calf tenderness Back exam: Present: normal inspection Neurological exam: Present: alert, oriented X3, CN II-XII intact Psychiatric exam: Present: normal affect, normal mood Skin exam: Present: warm, dry, intact, normal color. Absent: rash Course Vital Signs 03/10/23 03/10/23 03/10/23 16:33 18:18 20:09 Temperature 98.5 F Pulse Rate 61 70 78 Pulse Rate [ Automotive Electrical Helper ] Respiratory 14 18 16 Rate Blood Pressure 73/39 88/62 73/40 Blood Pressure [Right Arm] O2 Sat by Pulse 93 L 99 94 L Oximetry 03/11/23 03/11/23 03/11/23 00:00 00:13 00:29 Temperature Pulse Rate 70 70 70 Pulse Rate [ Automotive Electrical Helper ] Respiratory 18 Rate Blood Pressure 72/56 Blood Pressure [Right Arm] O2 Sat by Pulse 96 Oximetry 03/11/23 03/11/23 03/11/23 01:00 01:31 01:40 Temperature Pulse Rate 71 69 70 Pulse Rate [ Automotive Electrical Helper ] Respiratory 16 14 15 Rate Blood Pressure 69/48 68/54 67/53 Blood Pressure [Right Arm] O2 Sat by Pulse 97 96 96 Oximetry 03/11/23 03/11/23 03/11/23 02:00 02:20 02:30 Temperature Pulse Rate 70 70 77 Pulse Rate [ Automotive Electrical Helper ] Respiratory 16 16 14 Rate Blood Pressure 70/52 72/55 74/57 Blood Pressure [Right Arm] O2 Sat by Pulse 96 96 96 Oximetry 03/11/23 03/11/23 03/11/23 02:35 02:40 02:45 Temperature Pulse Rate 77 70 70 Pulse Rate [ Automotive Electrical Helper ] Respiratory 15 14 16 Rate Blood Pressure 95/47 73/55 76/59 Blood Pressure [Right Arm] O2 Sat by Pulse 96 96 95 Oximetry 03/11/23 03/11/23 03/11/23 02:50 03:00 03:05 Temperature 97.7 F Pulse Rate 70 70 70 Pulse Rate [ Automotive Electrical Helper ] Respiratory 16 16 17 Rate Blood Pressure 84/47 80/58 76/56 Blood Pressure [Right Arm] O2 Sat by Pulse 95 96 97 Oximetry 03/11/23 03/11/23 03/11/23 03:10 03:15 03:20 Temperature Pulse Rate 70 81 82 Pulse Rate [ Automotive Electrical Helper ] Respiratory 18 17 14 Rate Blood Pressure 75/54 77/60 78/61 Blood Pressure [Right Arm] O2 Sat by Pulse 91 L 95 97 Oximetry 03/11/23 03/11/23 03/11/23 03:25 03:30 03:45 Temperature Pulse Rate 77 70 70 Pulse Rate [ Automotive Electrical Helper ] Respiratory 15 12 16 Rate Blood Pressure 84/60 86/62 98/74 Blood Pressure [Right Arm] O2 Sat by Pulse 96 97 95 Oximetry 03/11/23 03/11/23 03/11/23 04:00 04:15 04:30 Temperature Pulse Rate 70 70 69 Pulse Rate [ Automotive Electrical Helper ] Respiratory 18 15 18 Rate Blood Pressure 93/69 86/63 88/71 Blood Pressure [Right Arm] O2 Sat by Pulse 92 L 95 94 L Oximetry 03/11/23 03/11/23 03/11/23 04:45 05:00 05:15 Temperature Pulse Rate 70 70 70 Pulse Rate [ Automotive Electrical Helper ] Respiratory 20 17 18 Rate Blood Pressure 100/53 89/69 84/66 Blood Pressure [Right Arm] O2 Sat by Pulse 97 96 97 Oximetry 03/11/23 03/11/23 03/11/23 05:30 05:45 06:00 Temperature Pulse Rate 68 69 70 Pulse Rate [ Automotive Electrical Helper ] Respiratory 17 17 16 Rate Blood Pressure 93/72 80/66 83/62 Blood Pressure [Right Arm] O2 Sat by Pulse 96 94 L 96 Oximetry 03/11/23 03/11/23 03/11/23 06:15 08:00 08:25 Temperature Pulse Rate 70 68 69 Pulse Rate [ Automotive Electrical Helper ] Respiratory 15 18 16 Rate Blood Pressure 80/62 82/61 74/61 Blood Pressure [Right Arm] O2 Sat by Pulse 96 96 95 Oximetry 03/11/23 03/11/23 03/11/23 08:30 08:35 08:40 Temperature Pulse Rate 70 70 70 Pulse Rate [ Automotive Electrical Helper ] Respiratory 20 15 16 Rate Blood Pressure 74/61 82/61 82/61 Blood Pressure [Right Arm] O2 Sat by Pulse 95 94 L 95 Oximetry 03/11/23 03/11/23 03/11/23 08:45 08:50 08:55 Temperature Pulse Rate 68 68 70 Pulse Rate [ Automotive Electrical Helper ] Respiratory 15 18 14 Rate Blood Pressure 82/61 84/57 84/57 Blood Pressure [Right Arm] O2 Sat by Pulse 96 94 L 97 Oximetry 03/11/23 03/11/23 03/11/23 09:00 09:05 09:10 Temperature Pulse Rate 69 69 70 Pulse Rate [ Automotive Electrical Helper ] Respiratory 13 18 16 Rate Blood Pressure 84/57 84/60 84/60 Blood Pressure [Right Arm] O2 Sat by Pulse 95 95 97 Oximetry 03/11/23 03/11/23 03/11/23 09:15 09:20 09:25 Temperature Pulse Rate 70 Pulse Rate [ Automotive Electrical Helper ] Respiratory 12 15 16 Rate Blood Pressure 84/60 81/63 81/63 Blood Pressure [Right Arm] O2 Sat by Pulse 92 L 93 L 96 Oximetry 03/11/23 03/11/23 03/11/23 09:30 09:35 09:40 Temperature Pulse Rate 70 70 76 Pulse Rate [ Automotive Electrical Helper ] Respiratory 17 16 17 Rate Blood Pressure 81/63 79/59 79/59 Blood Pressure [Right Arm] O2 Sat by Pulse 96 97 91 L Oximetry 03/11/23 03/11/23 03/11/23 09:45 09:50 09:55 Temperature Pulse Rate 70 70 Pulse Rate [ Automotive Electrical Helper ] Respiratory 16 12 18 Rate Blood Pressure 79/59 80/58 80/58 Blood Pressure [Right Arm] O2 Sat by Pulse 95 91 L Oximetry 03/11/23 03/11/23 03/11/23 10:00 10:05 10:10 Temperature Pulse Rate 70 70 69 Pulse Rate [ Automotive Electrical Helper ] Respiratory 17 18 19 Rate Blood Pressure 80/58 80/64 80/64 Blood Pressure [Right Arm] O2 Sat by Pulse 93 L 95 94 L Oximetry 03/11/23 03/11/23 03/11/23 10:15 10:20 10:25 Temperature Pulse Rate 72 70 69 Pulse Rate [ Automotive Electrical Helper ] Respiratory 18 16 16 Rate Blood Pressure 80/64 81/60 81/60 Blood Pressure [Right Arm] O2 Sat by Pulse 97 93 L Oximetry 03/11/23 03/11/23 03/11/23 10:30 10:35 10:40 Temperature Pulse Rate 69 69 69 Pulse Rate [ Automotive Electrical Helper ] Respiratory 15 12 17 Rate Blood Pressure 81/60 82/63 82/63 Blood Pressure [Right Arm] O2 Sat by Pulse 94 L 79 L Oximetry 03/11/23 03/11/23 03/11/23 10:45 10:50 10:55 Temperature Pulse Rate 70 68 69 Pulse Rate [ Automotive Electrical Helper ] Respiratory 17 14 12 Rate Blood Pressure 82/63 81/61 81/61 Blood Pressure [Right Arm] O2 Sat by Pulse 98 89 L 93 L Oximetry 03/11/23 03/11/23 03/11/23 11:00 11:05 11:10 Temperature Pulse Rate 69 71 69 Pulse Rate [ Automotive Electrical Helper ] Respiratory 11 L 18 17 Rate Blood Pressure 81/61 78/59 78/59 Blood Pressure [Right Arm] O2 Sat by Pulse 94 L 93 L Oximetry 03/11/23 03/11/23 03/11/23 11:15 11:20 11:25 Temperature Pulse Rate 68 Pulse Rate [ Automotive Electrical Helper ] Respiratory 18 15 16 Rate Blood Pressure 78/59 77/65 Blood Pressure [Right Arm] O2 Sat by Pulse 92 L 91 L 96 Oximetry 03/11/23 03/11/23 03/11/23 11:30 11:35 11:40 Temperature Pulse Rate 69 69 69 Pulse Rate [ Automotive Electrical Helper ] Respiratory 11 L 15 17 Rate Blood Pressure 77/65 73/60 73/60 Blood Pressure [Right Arm] O2 Sat by Pulse 98 86 L Oximetry 03/11/23 03/11/23 03/11/23 11:45 11:50 11:55 Temperature Pulse Rate 69 68 69 Pulse Rate [ Automotive Electrical Helper ] Respiratory 18 17 17 Rate Blood Pressure 73/60 72/56 72/56 Blood Pressure [Right Arm] O2 Sat by Pulse 96 88 L 84 L Oximetry 03/11/23 03/11/23 03/11/23 12:00 12:05 12:10 Temperature Pulse Rate 70 71 73 Pulse Rate [ Automotive Electrical Helper ] Respiratory 17 19 18 Rate Blood Pressure 72/56 79/61 79/61 Blood Pressure [Right Arm] O2 Sat by Pulse 95 99 96 Oximetry 03/11/23 03/11/23 03/11/23 12:15 12:20 12:25 Temperature Pulse Rate 70 68 68 Pulse Rate [ Automotive Electrical Helper ] Respiratory 17 19 18 Rate Blood Pressure 79/61 76/60 76/60 Blood Pressure [Right Arm] O2 Sat by Pulse 97 84 L 94 L Oximetry 03/11/23 03/11/23 03/11/23 12:30 12:35 12:40 Temperature Pulse Rate 71 Pulse Rate [ Automotive Electrical Helper ] Respiratory 17 11 L Rate Blood Pressure 76/60 80/60 80/60 Blood Pressure [Right Arm] O2 Sat by Pulse 85 L 93 L Oximetry 03/11/23 03/11/23 03/11/23 12:45 12:55 13:00 Temperature Pulse Rate 70 68 Pulse Rate [ Automotive Electrical Helper ] Respiratory 19 12 Rate Blood Pressure 80/60 Blood Pressure [Right Arm] O2 Sat by Pulse 91 L Oximetry 03/11/23 03/11/23 03/11/23 13:05 13:10 13:15 Temperature Pulse Rate 69 70 61 Pulse Rate [ Automotive Electrical Helper ] Respiratory 20 19 16 Rate Blood Pressure 78/61 78/61 78/61 Blood Pressure [Right Arm] O2 Sat by Pulse 98 Oximetry 03/11/23 03/11/23 03/11/23 13:20 13:25 13:30 Temperature Pulse Rate 69 69 70 Pulse Rate [ Automotive Electrical Helper ] Respiratory 18 19 18 Rate Blood Pressure 80/58 80/58 80/58 Blood Pressure [Right Arm] O2 Sat by Pulse 94 L Oximetry 03/11/23 03/11/23 03/11/23 13:35 13:45 14:00 Temperature Pulse Rate 71 Pulse Rate [ Automotive Electrical Helper ] Respiratory 15 22 19 Rate Blood Pressure 80/60 80/60 95/81 Blood Pressure [Right Arm] O2 Sat by Pulse 84 L Oximetry 03/11/23 03/11/23 03/11/23 14:15 15:00 15:30 Temperature Pulse Rate 69 65 70 Pulse Rate [ Automotive Electrical Helper ] Respiratory 14 17 17 Rate Blood Pressure 80/61 79/43 93/70 Blood Pressure [Right Arm] O2 Sat by Pulse 91 L Oximetry 03/11/23 03/11/23 03/11/23 16:00 16:30 17:00 Temperature Pulse Rate 68 69 69 Pulse Rate [ Automotive Electrical Helper ] Respiratory 22 17 21 Rate Blood Pressure 91/66 82/68 82/64 Blood Pressure [Right Arm] O2 Sat by Pulse 88 L 96 90 L Oximetry 03/11/23 03/11/23 03/11/23 17:30 18:00 18:30 Temperature Pulse Rate 70 68 Pulse Rate [ Automotive Electrical Helper ] Respiratory 20 16 19 Rate Blood Pressure 88/66 86/64 88/66 Blood Pressure [Right Arm] O2 Sat by Pulse 95 Oximetry 03/11/23 03/11/23 03/11/23 19:00 19:30 20:00 Temperature Pulse Rate 69 Pulse Rate [ Automotive Electrical Helper ] Respiratory 20 23 20 Rate Blood Pressure 95/68 94/72 89/70 Blood Pressure [Right Arm] O2 Sat by Pulse 94 L 95 83 L Oximetry 03/11/23 03/11/23 03/11/23 20:15 20:30 20:45 Temperature Pulse Rate 69 70 Pulse Rate [ Automotive Electrical Helper ] Respiratory 22 19 16 Rate Blood Pressure 92/70 92/66 93/65 Blood Pressure [Right Arm] O2 Sat by Pulse 98 96 Oximetry 03/11/23 03/11/23 03/11/23 21:00 21:15 21:45 Temperature Pulse Rate 67 67 Pulse Rate [ Automotive Electrical Helper ] Respiratory 21 21 19 Rate Blood Pressure 90/65 91/64 89/63 Blood Pressure [Right Arm] O2 Sat by Pulse 97 97 94 L Oximetry 03/12/23 03/12/23 03/12/23 00:00 00:15 00:30 Temperature Pulse Rate 69 70 70 Pulse Rate [ Automotive Electrical Helper ] Respiratory 20 26 H 24 Rate Blood Pressure 75/54 72/56 74/56 Blood Pressure [Right Arm] O2 Sat by Pulse 96 96 96 Oximetry 03/12/23 03/12/23 03/12/23 00:45 01:00 01:15 Temperature Pulse Rate 70 70 62 Pulse Rate [ Automotive Electrical Helper ] Respiratory 21 21 23 Rate Blood Pressure 78/62 79/56 75/60 Blood Pressure [Right Arm] O2 Sat by Pulse 96 95 96 Oximetry 03/12/23 03/12/23 03/12/23 01:30 01:45 02:30 Temperature Pulse Rate 69 70 68 Pulse Rate [ Automotive Electrical Helper ] Respiratory 23 22 24 Rate Blood Pressure 78/64 87/55 79/56 Blood Pressure [Right Arm] O2 Sat by Pulse 95 95 95 Oximetry 03/12/23 03/12/23 03/12/23 03:00 03:30 04:00 Temperature Pulse Rate 70 71 75 Pulse Rate [ Automotive Electrical Helper ] Respiratory 28 H 25 H 23 Rate Blood Pressure 79/57 80/64 84/59 Blood Pressure [Right Arm] O2 Sat by Pulse 95 95 95 Oximetry 03/12/23 03/12/23 03/12/23 04:30 05:00 05:30 Temperature Pulse Rate 70 70 71 Pulse Rate [ Automotive Electrical Helper ] Respiratory 24 26 H 24 Rate Blood Pressure 85/67 82/59 94/64 Blood Pressure [Right Arm] O2 Sat by Pulse 95 95 95 Oximetry 03/12/23 03/12/23 03/12/23 06:30 07:00 08:35 Temperature 97.8 F Pulse Rate 75 70 72 Pulse Rate [ Automotive Electrical Helper ] Respiratory 14 25 H 18 Rate Blood Pressure 94/67 99/66 100/50 Blood Pressure [Right Arm] O2 Sat by Pulse 80 L 77 L 90 L Oximetry 03/12/23 08:36 Temperature 97.9 F Pulse Rate Pulse Rate [ 91 Automotive Electrical Helper ] Respiratory 28 H Rate Blood Pressure Blood Pressure 90/64 [Right Arm] O2 Sat by Pulse 96 Oximetry - Reevaluation(s) Reevaluation #1: 03/10/23 22:39 medical records reviewed Reevaluation #2: 03/10/23 22:39 Patient's blood pressure remains low will need central line and pressors Patient does not show any considerations of airway compromise, no hypoxia or difficulty breathing Reevaluation #3: 03/10/23 22:39 Patient informed results and questions answered Patient aware of significance of illness Reevaluation #4: 03/10/23 22:39 Was pt. sent in by a medical professional or institution (QUITA Velasco, ADMINISTRATIVE REPRESENTATIVE, urgent care, hospital, or fdc...) When possible be specific @ -no Did you speak to anyone other than the patient for history (EMS, parent, family, police, friend...)? What history was obtained from this source @ -no Did you review nursing and triage notes (agree or disagree)? Why? @ -agree Are old charts reviewed (outside hosp., previous admission, EMS record, old EKG, old radiological studies, urgent care reports/EKG's, fdc records)? Report findings @ -yes Differential Diagnosis (chest pain, altered mental status, abdominal pain women, abdominal pain men, vaginal bleeding, weakness, fever, dyspnea, syncope, headache, dizziness, GI bleed, back pain, seizure, CVA, palpatations, mental health, musculoskeletal)? @ -prior EKG interpreted by me (3pts min.). @ -yes X-rays interpreted by me (1pt min.). @ -yes pleural effusion negative for other acute disease CT interpreted by me (1pt min.). @ -Yes significant for likely abscess with possible underlying neoplasm U/S interpreted by me (1pt. min.). @ -no What testing was considered but not performed or refused? (CT, X-rays, U/S, l abs)? Why? @ -none What meds were considered but not given or refused? Why? @ -none Did you discuss the management of the patient with other professionals (professionals i.e. , PA, ADMINISTRATIVE REPRESENTATIVE, lab, RT, psych nurse, home health care social worker, painter aircraft, teacher, special police officer, housing case manager)? Give summary @ -no Was smoking cessation discussed for >3mins.? @ -no Was critical care preformed (if so, how long)? @ -yes31 Were there social determinants of health that impacted care today? How? (Homelessness, low income, unemployed, alcoholism, drug addiction, transportation, low edu. Level, literacy, decrease access to med. care, [facility], rehab)? @ -none Was there de-escalation of care discussed even if they declined (Discuss DNR or withdrawal of care, Hospice)? DNR status @ -no What co-morbidities impacted this encounter? (DM, HTN, Smoking, COPD, CAD, Cancer, CVA, ARF, Chemo, Hep., AIDS, mental health diagnosis, sleep apnea, morbid obesity)? @ -none Was patient admitted / discharged? Hospital course, mention meds given and route, prescriptions, significant lab abnormalities, going to OR and other pertinent info. @ - 73 male to the emergency department for evaluation persistent weakness patient does have neck wound neck sore which occurs show some concerning for neoplasm is draining abscess. Patient will place on antibiotics and admitted for IV resuscitation and surgical evaluation regarding treatment of abscess. Admitted Undiagnosed new problem with uncertain prognosis? @ -no Drug Therapy requiring intensive monitoring for toxicity (Heparin, Nitro, Insulin, Cardizem)? @ -no Were any procedures done? @ -no Diagnosis/symptom? @ -Abscess with failure to thrive likely underlying cancer Acute, or Chronic, or Acute on Chronic? @ -Acute Uncomplicated (without systemic symptoms) or Complicated (systemic symptoms)? @ -Complicated Side effects of treatment? @ -no Exacerbation, Progression, or Severe Exacerbation? @ -exacerbation Poses a threat to life or bodily function? How? (Chest pain, [place], [place], pneumonia, PE, COPD, DKA, ARF, appy, cholecystitis, CVA, Diverticulitis, Homicidal, Suici alexys, threat to staff... and all critical care pts) @ -yes negative for acute disease Reevaluation #5: 03/10/23 22:39 Differential Weakness: Hypoglycemia, shock, sepsis, hyponatremia, anemia, infection, [place], ETOH, adverse medicine reaction, overdose, stroke, this is not meant to be an all-inclusive list. - Consultations Consultation #1: Spoke with [facility] were agrees to admit this patient Consultation #2: spoke w ICU aware of need for higher care, secondarily to abscessVneoplasm and infection with hypoxtension and pressor support EKG Findings - EKG Comments: EKG Findings:: EKG is paced 70 QRS 178 QTc 509 - EKG Results: EKG: interpreted by ERMD Procedures - Central Line Placement Right IJ Consent Obtained: verbal consent Patient Placed on Monitor/Pulse Ox: Yes MD Prep: mask, gown, gloves Central Line Prep: Povidone-Iodine 1%, sterile drapes applied Local Anesthesia Used: Lidocaine 1% Ultrasound Used for Placement: Yes Central Line Lumen Inserted: triple Bloods Obtained for Lab: Yes Central Line Position: good blood return, all ports aspirated, flushed, capped, sutured in place with 3-0 nylon Dressing Applied: Tegaderm Post Procedure X-Ray: tip of catheter in good position Patient Tolerated Procedure: well Complications: none Medical Decision Making - Medical Decision Making 73 male to the emergency department for evaluation persistent weakness patient does have neck wound neck sore which occurs show some concerning for neoplasm is draining abscess. Patient will place on antibiotics and admitted for IV resuscitation and surgical evaluation regarding treatment of abscess. - Lab Data Result diagrams: 03/13/23 05:33 03/13/23 17:53 Lab Results 03/10/23 03/10/23 03/10/23 Range/Units 17:26 17:26 17:26 WBC 14.5 H (3.8-10.6) k/uL RBC 4.40 (4.30-5.90) m/uL Hgb 15.4 (13.0-17.5) gm/dL Hct 43.6 (39.0-53.0) % MCV 99.0 (80.0-100.0) fL MCH 35.0 (25.0-35.0) pg MCHC 35.3 (31.0-37.0) g/dL RDW 11.8 (11.5-15.5) % Plt Count 334 (150-450) k/uL MPV 10.2 Neutrophils % 75 % Lymphocytes % 15 % Monocytes % 9 % Eosinophils % 0 % Basophils % 0 % Neutrophils # 10.8 H (1.3-7.7) k/uL Lymphocytes # 2.2 (1.0-4.8) k/uL Monocytes # 1.3 H (0-1.0) k/uL Eosinophils # 0.0 (0-0.7) k/uL Basophils # 0.1 (0-0.2) k/uL PT 17.4 H (10.0-12.5) sec INR 1.7 H (<1.2) APTT 31.9 H (22.0-30.0) sec Sodium 127 L (137-145) mmol/L Potassium 3.6 (3.5-5.1) mmol/L Chloride 79 L (98-107) mmol/L Carbon Dioxide 36 H (22-30) mmol/L Anion Gap 12 mmol/L BUN 55 H (9-20) mg/dL Creatinine 2.56 H (0.66-1.25) mg/dL Est GFR (CKD-EPI)AfAm 28 (>60 ml/min/1.73 sqM) Est GFR (CKD-EPI)NonAf 24 (>60 ml/min/1.73 sqM) Glucose 82 (74-99) mg/dL Lactic Ac Sepsis Rflx Plasma Lactic Acid Jeffrey (0.7-2.0) mmol/L Calcium 7.3 L (8.4-10.2) mg/dL Phosphorus 3.8 (2.5-4.5) mg/dL Magnesium 2.0 (1.6-2.3) mg/dL Total Bilirubin 1.1 (0.2-1.3) mg/dL AST 103 H (17-59) U/L ALT 67 H (4-49) U/L Alkaline Phosphatase 72 (38-126) U/L Troponin I (0.000-0.034) ng/mL C-Reactive Protein 5.1 H (<1.0) mg/dL NT-Pro-B Natriuret Pep 5120 pg/mL Total Protein 5.6 L (6.3-8.2) g/dL Albumin 2.4 L (3.5-5.0) g/dL 03/10/23 03/10/23 03/10/23 Range/Units 17:26 17:26 18:47 WBC (3.8-10.6) k/uL RBC (4.30-5.90) m/uL Hgb (13.0-17.5) gm/dL Hct (39.0-53.0) % MCV (80.0-100.0) fL MCH (25.0-35.0) pg MCHC (31.0-37.0) g/dL RDW (11.5-15.5) % Plt Count (150-450) k/uL MPV Neutrophils % % Lymphocytes % % Monocytes % % Eosinophils % % Basophils % % Neutrophils # (1.3-7.7) k/uL Lymphocytes # (1.0-4.8) k/uL Monocytes # (0-1.0) k/uL Eosinophils # (0-0.7) k/uL Basophils # (0-0.2) k/uL PT (10.0-12.5) sec INR (<1.2) APTT (22.0-30.0) sec Sodium (137-145) mmol/L Potassium (3.5-5.1) mmol/L Chloride (98-107) mmol/L Carbon Dioxide (22-30) mmol/L Anion Gap mmol/L BUN (9-20) mg/dL Creatinine (0.66-1.25) mg/dL Est GFR (CKD-EPI)AfAm (>60 ml/min/1.73 sqM) Est GFR (CKD-EPI)NonAf (>60 ml/min/1.73 sqM) Glucose (74-99) mg/dL Lactic Ac Sepsis Rflx Y Plasma Lactic Acid Jeffrey 2.5 H* (0.7-2.0) mmol/L Calcium (8.4-10.2) mg/dL Phosphorus (2.5-4.5) mg/dL Magnesium (1.6-2.3) mg/dL Total Bilirubin (0.2-1.3) mg/dL AST (17-59) U/L ALT (4-49) U/L Alkaline Phosphatase (38-126) U/L Troponin I 0.064 H* (0.000-0.034) ng/mL C-Reactive Protein (<1.0) mg/dL NT-Pro-B Natriuret Pep pg/mL Total Protein (6.3-8.2) g/dL Albumin (3.5-5.0) g/dL 03/10/23 Range/Units 21:06 WBC (3.8-10.6) k/uL RBC (4.30-5.90) m/uL Hgb (13.0-17.5) gm/dL Hct (39.0-53.0) % MCV (80.0-100.0) fL MCH (25.0-35.0) pg MCHC (31.0-37.0) g/dL RDW (11.5-15.5) % Plt Count (150-450) k/uL MPV Neutrophils % % Lymphocytes % % Monocytes % % Eosinophils % % Basophils % % Neutrophils # (1.3-7.7) k/uL Lymphocytes # (1.0-4.8) k/uL Monocytes # (0-1.0) k/uL Eosinophils # (0-0.7) k/uL Basophils # (0-0.2) k/uL PT (10.0-12.5) sec INR (<1.2) APTT (22.0-30.0) sec Sodium (137-145) mmol/L Potassium (3.5-5.1) mmol/L Chloride (98-107) mmol/L Carbon Dioxide (22-30) mmol/L Anion Gap mmol/L BUN (9-20) mg/dL Creatinine (0.66-1.25) mg/dL Est GFR (CKD-EPI)AfAm (>60 ml/min/1.73 sqM) Est GFR (CKD-EPI)NonAf (>60 ml/min/1.73 sqM) Glucose (74-99) mg/dL Lactic Ac Sepsis Rflx Plasma Lactic Acid Jeffrey 1.7 (0.7-2.0) mmol/L Calcium (8.4-10.2) mg/dL Phosphorus (2.5-4.5) mg/dL Magnesium (1.6-2.3) mg/dL Total Bilirubin (0.2-1.3) mg/dL AST (17-59) U/L ALT (4-49) U/L Alkaline Phosphatase (38-126) U/L Troponin I (0.000-0.034) ng/mL C-Reactive Protein (<1.0) mg/dL NT-Pro-B Natriuret Pep pg/mL Total Protein (6.3-8.2) g/dL Albumin (3.5-5.0) g/dL - EKG Data -: EKG Interpreted by Me - Radiology Data Radiology results: report reviewed (CT soft tissue neck is positive for likely neoplasm versus abscess, narrowing of airway, chest x-rays negative for acute disease), image reviewed Disposition Clinical Impression: Neck abscess, Weakness, Dehydration, Sepsis, Shock Narrative: Neck ?Neoplasm? Disposition: ADMITTED IP TO THIS HOSP Condition: Serious Is patient prescribed a controlled substance at d/c from ED?: No Time of Disposition: 22:40
[2023-03-10 18:23] LABS: ALT 67 U/L (4-49); African American GFR (CKD) 28 (>60 ml/min/1.73 sqM); Albumin 2.4 g/dL (3.5-5.0); Anion Gap 12 mmol/L; Blood Urea Nitrogen 55 mg/dL (9-20); C Reactive Protein 5.1 mg/dL (<1.0); Calcium 7.3 mg/dL (8.4-10.2); Carbon Dioxide 36 mmol/L (22-30); Chloride 79 mmol/L (98-107); Glucose 82 mg/dL (74-99); Non-African American GFR(CKD) 24 (>60 ml/min/1.73 sqM); Phosphorus 3.8 mg/dL (2.5-4.5); Sodium 127 mmol/L (137-145); Total Bilirubin 1.1 mg/dL (0.2-1.3); Total Protein 5.6 g/dL (6.3-8.2)
[2023-03-10 18:29] LABS: INR 1.7 (<1.2); NT-Pro-B-Type Natriuretic Pept 5120 pg/mL
[2023-03-10 18:30] LABS: Partial Thromboplastin Time 31.9 sec (22.0-30.0); Prothrombin Time 17.4 sec (10.0-12.5)
[2023-03-10 18:34] LABS: AST 103 U/L (17-59); Alkaline Phosphatase 72 U/L (38-126); Potassium 3.6 mmol/L (3.5-5.1)
[2023-03-10] MEDS ORDERED: AMPICILLIN-SULBACTAM 3 GM in SODIUM CHLORIDE 0.9% 100 ML IVPB STA (18:36)
[2023-03-10] MEDS ORDERED: VANCOMYCIN IV PER PHARMACY 1 EACH MISC MISCELLANE PRN (18:36)
[2023-03-10] MEDS ORDERED: VANCOMYCIN 1,000 MG in SODIUM CHLORIDE 0.9% 250 ML IVPB STA (18:42)
[2023-03-10 18:54] LABS: Basophils # (A) 0.1 k/uL (0-0.2); Basophils % (A) 0 %; Eosinophils % (A) 0 %; HCT 43.6 % (39.0-53.0); HGB 15.4 gm/dL (13.0-17.5); Lymphocytes # (A) 2.2 k/uL (1.0-4.8); Lymphocytes % (A) 15 %; MCHC 35.3 g/dL (31.0-37.0); Mean Platelet Volume 10.2; Monocytes # (A) 1.3 k/uL (0-1.0); Monocytes % (A) 9 %; Neutrophils # (A) 10.8 k/uL (1.3-7.7); Neutrophils % (A) 75 %; Platelet Count 334 k/uL (150-450); RDW 11.8 % (11.5-15.5); WBC 14.5 k/uL (3.8-10.6)
--- NOTE | 2023-03-10 21:23 | CT ---
EXAMINATION TYPE: CT soft tissue neck wo con CT DLP: 223.9 mGycm, Automated exposure control for dose reduction was used. DATE OF EXAM: 03/10/2023 7:11 PM COMPARISON: . CLINICAL INDICATION:Male, 73 years old with history of abscess; PHH, right side neck abscess burst x 4 days ago. TECHNIQUE: CT of the neck performed without contrast.. Axial sections with coronal and sagittal refo rmats were obtained. Contrast used: mL of , Oral contrast used: none. FINDINGS: CT examination of the neck is markedly limited without IV contrast. Included base of the brain shows mild/moderate generalized atrophy. Orbits and soft tissues of the ba se of the head are grossly unremarkable. No significant fluid in the paranasal sinuses seen. Incident al note is made of torus mandibularis. There is extensive dental work throwing beam hardening artifac t. This limits evaluation of nearby structures but no discrete regional soft tissue lesion is seen. Musculature at the base of the tongue appears unremarkable. Submandibular glands are symmetric. Nonen larged submandibular nodes. There seem to be nonenlarged nodes along the bilateral cervical chains, w ithout bulky adenopathy suggested. Moderate calcifications of carotid bifurcations. The parapharyngea l fat planes are preserved. Grossly unremarkable thyroid and parotid glands. The upper airway is patent. Epiglottis does not appear thickened. However within the subglottic airwa y at the level of the larynx there is abnormal irregular soft tissue density concerning for neoplasm which significantly narrows the airway at this level with a small residual patent passage. At the lev el of the thoracic inlet and below, the trachea appears of essentially normal caliber. The exact exte nt of the soft tissue abnormality is difficult to precisely measure, however in total axially appears to be about 5.1 x 5.1 cm and extends at least 4.7 cm craniocaudally. Some gas is seen extending ante riorly from the airway on images 64-65, could be a residual displaced portion of the airway, versus g as dissecting through the abnormal tissues. The thyroid cartilage appears somewhat thinned and radiol ucent anteriorly in the area of mass. Best seen on axial image 65 the soft tissue appears to extend t o the anterior skin surface of the neck just right of midline primarily, with skin thickening and/or bandaging material over this area. This does not have the typical appearance of a fluid collection/ab scess, but infection is a differential consideration. There are mild/moderate degenerative changes throughout the cervical spine. No acute bony abnormaliti es are seen. Cuts through the upper chest show a portion of a left chest transvenous pacemaker. Mild/moderate emph ysematous changes in the lung apices. No consolidation or pneumothorax. IMPRESSION: 1. Markedly limited study without IV contrast. 2. No clear evidence of bulky adenopathy or fluid collection in the neck. 3. Within the subglottic airway at the level of the larynx there is abnormal irregular soft tissue d ensity which significantly narrows the airway at this level with a small residual patent passage. Det ails above. Primary consideration is neoplasm, this does not have the typical appearance of a fluid c ollection/abscess, but infection is a differential consideration. 4. Soft tissue density appears to extend from #3 to the anterior skin surface of the neck just right of midline. Correlate clinically for any evidence of masslike tissue or draining at the skin surface , and sampling may be of benefit. 5. Mild/moderate emphysematous changes in the lung apices.
[2023-03-10] MEDS ORDERED: HYDROCORTISONE SUCCINATE 100 MG/2 ML VIAL IV STA (22:25)
[2023-03-10] MEDS ORDERED: NALOXONE 0.4 MG/ML 1 ML VIAL IV PRN (22:42)
[2023-03-10] MEDS ORDERED: MORPHINE SULFATE 4 MG/ML SYRINGE IV PRN (22:42)
[2023-03-10] MEDS ORDERED: ONDANSETRON 4 MG/2 ML VIAL IVP PRN (22:42)
[2023-03-10] MEDS ORDERED: SODIUM CHLORIDE 0.9% 500 ML 500 ML IV STA (22:44)
[2023-03-10] MEDS: SODIUM CHLORIDE 0.9% 1,000 ML IV SCH (23:23)
[2023-03-10] MEDS ORDERED: IPRATROPIUM-ALBUTEROL 3 ML NEB INHALATION STA ×2 (23:38)
[2023-03-10] MEDS ORDERED: IPRATROPIUM-ALBUTEROL 3 ML NEB INHALATION PRN (23:38)
[2023-03-11] MEDS ORDERED: NOREPINEPHRINE 32 MG in SODIUM CHLORIDE 0.9% 218 ML IV ONE (00:15)
[2023-03-11] MEDS: SODIUM CHLORIDE 0.9% 1,000 ML IV SCH ×2 (00:52→18:26)
--- NOTE | 2023-03-11 01:31 | XR ---
EXAM: XR chest 1V portable CLINICAL INDICATION:Male, 73 years old with history of weak; PHH. Patient arrives via EMS from home f or complaints of increased generalized weakness and hypotension COMPARISON: 07/29/2018 chest x-ray. CT soft tissue neck earlier today. TECHNIQUE: Chest single view. FINDINGS: Lines/tubes/devices: EKG leads over the chest. No indwelling lines are seen. Cardiomediastinum: Cardiac silhouette appears mildly enlarged. Left chest 2-lead pacemaker device in place. Partially calcified mildly tortuous aorta. No evidence of hilar enlargement. Vasculature: No increased pulmonary vasculature. Lungs/pleura: Slightly coarsened interstitium with no consolidation, sizeable effusion, or visible pneumothorax. Bones/soft tissues: Bony thorax appears grossly intact as seen. Narrowed appearance of the airway in the neck, correlates with the recent CT findings. IMPRESSION: No acute cardiopulmonary findings.
[2023-03-11 01:50] LABS: Appearance,Urine Cloudy (Clear); Bacteria,Urine Occasional /hpf; Bilirubin,Urine Negative (Negative); Blood,Urine Negative (Negative); Color,Urine Yellow; Glucose,Urine (UA) Negative (Negative); Hyaline Casts,Urine 66 /lpf (0-2); Ketones,Urine 1+ (Negative); Leukocyte Esterase,Urine Large (Negative); Mucus,Urine Occasional /hpf; Nitrite,Urine Negative (Negative); Protein,Urine Trace (Negative); RBC,Urine 8 /hpf (0-5); Specific Gravity,Urine 1.017 (1.001-1.035); Squamous Epithelial Cell,Urine 1 /hpf (0-4); WBC,Urine >182 /hpf (0-5); Waxy Casts,Urine 2 /lpf (0)
--- NOTE | 2023-03-11 01:51 | XR ---
EXAM: XR Chest, 1 View CLINICAL HISTORY: ITS.REASON XR Reason: line placement TECHNIQUE: Frontal view of the chest. COMPARISON: CXR 11/09/2017. FINDINGS: Lungs: Unremarkable. No consolidation. Pleural space: Unremarkable. No pneumothorax. Heart: Unremarkable. No cardiomegaly. Mediastinum: Unremarkable. Normal mediastinal contour. Bones/joints: Unremarkable. No acute fracture. Tubes, lines and devices: Right IJ catheter terminates in the SVC. A dual-lead pacemaker/AICD. IMPRESSION: Right IJ catheter terminates in the SVC.
[2023-03-11] MEDS: VASOPRESSIN 60 UNIT in SODIUM CHLORIDE 0.9% 150 ML IV SCH (03:05)
[2023-03-11 06:45] LABS: ALT 61 U/L (4-49); AST 97 U/L (17-59); African American GFR (CKD) 35 (>60 ml/min/1.73 sqM); Albumin 2.1 g/dL (3.5-5.0); Alkaline Phosphatase 69 U/L (38-126); Anion Gap 15 mmol/L; Blood Urea Nitrogen 45 mg/dL (9-20); Calcium 6.6 mg/dL (8.4-10.2); Carbon Dioxide 24 mmol/L (22-30); Chloride 93 mmol/L (98-107); Glucose 62 mg/dL (74-99); Magnesium 1.9 mg/dL (1.6-2.3); Non-African American GFR(CKD) 30 (>60 ml/min/1.73 sqM); Phosphorus 4.3 mg/dL (2.5-4.5); Potassium 3.3 mmol/L (3.5-5.1); Sodium 132 mmol/L (137-145); Total Bilirubin 0.8 mg/dL (0.2-1.3)
[2023-03-11] MEDS: AMPICILLIN-SULBACTAM 3 GM in SODIUM CHLORIDE 0.9% 100 ML IVPB SCH ×2 (06:54→19:44)
[2023-03-11 06:55] LABS: Basophils % (A) 0 %; Eosinophils % (A) 0 %; HCT 43.6 % (39.0-53.0); Lymphocytes # (A) 1.2 k/uL (1.0-4.8); Lymphocytes % (A) 7 %; MCH 34.2 pg (25.0-35.0); MCHC 34.3 g/dL (31.0-37.0); MCV 99.7 fL (80.0-100.0); Mean Platelet Volume 9.7; Monocytes % (A) 11 %; Neutrophils # (A) 14.2 k/uL (1.3-7.7); Neutrophils % (A) 81 %; Platelet Count 372 k/uL (150-450); RBC 4.37 m/uL (4.30-5.90); RDW 12.3 % (11.5-15.5); WBC 17.6 k/uL (3.8-10.6)
--- NOTE | 2023-03-11 08:33 | P.CNPUL ---
History of Present Illness Consult date: 03/11/23 Requesting physician: Vincent Thapa Reason for consult: other (Hypotension/sepsis) Chief complaint: Neck pain, low blood pressures, weakness History of present illness: I am seeing this patient in consultation today 03/11/2023 in the emergency room after he presented with chief complaint of draining neck wound. He was weak and found to have low blood pressures on EMS arrival. Patient is a 73-year-old white male with past medical history significant for atrial fibrillation anticoagulated on Xarelto, AICD implantation, hypertension, hyperlipidemia, prostate cancer status post prostatectomy, and is a chronic ongoing tobacco smoker. His primary care provider is Dr. Azeveod. He reportedly lives with a friend. Patient states that he first noticed his neck mass approximately 1-2 weeks ago. He recently opened and started draining a purulent colored drainage. He states that his voice is been hoarse. He's had reduced appetite, and poor oral intake. He's been more weak. He appears emaciated and cachectic. He is reportedly lost about 35 pounds in the last month. EMS was called, on arrival, the patient was found to be hypotensive. On the emergency room, the patient was fluid resuscitated with a total of 4.5 L normal saline bolus. A central line was placed by the ER physician and the right IJ. Patient was then started on vasopressors, in the form of norepinephrine which is infusing at 0.2 mcg/kg/m. Blood cultures have been drawn. Patient has been started on empiric antibiotics. Wound cultures will be taken. A CT of the neck demonstrated an irregular soft tissue density within the subglottic airway at the level of the larynx which significantly narrows the airway at this level and will use only a small residual passage. Primary concern is for neoplasm. This mass is measured at 5.1 cm x 5.1 cm x 4.7 cm. On clinical examination, the patient's neck wound is draining a purulent drainage concerning for infection as well. Patient is currently lying in bed, on 2 L/m nasal cannula, in no acute distress. He is on 2 L/m nasal cannula. SpO2 is 97%. His voice is hoarse. No significant stridor. Patient was given 100 mg of Solu-Cortef. CBC on arrival shows leukocytosis of his count of 14.5, globin 15.4, hematocrit 43.6, platelets 334. BMP shows sodium 127, potassium 3.6, chloride 79, serum bicarbonate 36, BUN 55, creatinine 2.56, glucose 82. Lactic acid level was elevated at 2.5 times is now 1.7. Troponins mildly elevated at 0.064 and 0.073 respectively. NT proBNP is 5120. Chest x-ray did not show any pulmonary mass or congestion or card iomegaly. No focal consolidation or evidence of pneumonia either. There is an implanted AICD/pacemaker. ECG shows a ventricular paced rhythm. Patient is currently afebrile. Blood pressure remains hypotensive, We'll likely have to add a second vasopressor. Patient does have indwelling urinary catheter, and urine appears concentrated. He will be monitored in intensive care unit once bed available. Review of Systems REVIEW OF SYSTEMS: CONSTITUTIONAL: Admits recent weight loss of approximately 35 pounds within the last month or so. Admits generalized fatigue and weakness. Denies any fevers. EYES: Denies change in vision. EARS, NOSE, MOUTH, THROAT: Denies headaches. Admits anterior neck pain associated with neck mass. Admits voice hoarseness. CARDIOVASCULAR: Denies chest pain, palpitations or syncopal episodes. RESPIRATORY: Denies shortness of breath, cough, congestion or hemoptysis. GASTROINTESTINAL: Denies abdominal pain, nausea and vomiting, or diarrhea . Admits anorexia and reduced oral intake. GENITOURINARY: Denies hematuria, denies infections. Admits urinary frequency. MUSKULOSKELETAL: Denies pain, denies swelling. INTEGUMENTARY: Denies rash, denies eczema. NEUROLOGICAL: Denies recent memory loss, no recent seizure activity. PSYCHIATRIC: Denies anxiety, denies depression. HEMATOLOGIC/LYMPHATIC: Denies anemia, denies enlarged lymph node Past Medical History Past Medical History: Atrial Fibrillation, Cancer, GERD/Reflux, Musculoskeletal Disorder Additional Past Medical History / Comment(s): PROSTATE CA, STATES HAS MULT. 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 Past Anesthesia/Blood Transfusion Reactions: No Reported Reaction Additional Past Anesthesia/Blood Transfusion Reaction / Comment(s): difficulty with ether Past Psychological History: Anxiety Past Drug Use History: Marijuana - Past Family History Mother Family Medical History: No Reported History, Vascular Disorder Additional Family Medical History / Comment(s): varicose veins Brother(s) Family Medical History: Vascular Disorder Additional Family Medical History / Comment(s): varicose veins Sister(s) Family Medical History: Vascular Disorder Additional Family Medical History / Comment(s): varicose veins Medications and Allergies Home Medications Medication Instructions Recorded Confirmed Type Omeprazole [PriLOSEC] 20 mg PO DAILY 12/19/13 03/10/23 History Aspirin [Adult Low Dose Aspirin EC] 81 mg PO DAILY 02/24/18 03/10/23 History Spironolactone [Aldactone] 25 mg PO DAILY 02/24/18 03/10/23 History lisinopriL [Zestril] 2.5 mg PO HS 02/24/18 03/10/23 History Atorvastatin [Lipitor] 80 mg PO HS #90 tab 03/01/18 03/10/23 Rx Digoxin [Lanoxin] 125 mcg PO DAILY 09/20/20 03/10/23 History Amiodarone [Cordarone] 200 mg PO BID 03/10/23 03/10/23 History Ascorbic Acid [Vitamin C] 1,000 mg PO DAILY 03/10/23 03/10/23 History Cholecalciferol [Vitamin D3 (25 25 mcg PO DAILY 03/10/23 03/10/23 History Mcg = 1000 Iu)] Metoprolol Succinate [Toprol XL] 200 mg PO BID 03/10/23 03/10/23 History Rivaroxaban [Xarelto] 20 mg PO HS 03/10/23 03/10/23 History Vitamin E (Dl,Tocopheryl Acet) 400 unit PO DAILY 03/10/23 03/10/23 History [Vitamin E (400 Iu = 180 mg)] Allergies Allergy/AdvReac Type Severity Reaction Status Date / Time No Known Allergies Allergy Verified 03/10/23 17:44 Physical Exam Vitals: Vital Signs Temp Pulse Resp BP Pulse Ox 03/11/23 01:00 71 16 69/48 97 03/11/23 00:29 70 03/11/23 00:13 70 03/10/23 20:09 78 16 73/40 94 L 03/10/23 18:18 70 18 88/62 99 03/10/23 16:33 98.5 F 61 14 73/39 93 L Intake and Output 03/10/23 03/10/23 03/11/23 14:59 22:59 06:59 Intake Total 5.673 Balance 5.673 Intake: Intake, IV Titration 5.673 Amount Norepinephrine 32 mg In 5.673 Sodium Chloride 0.9% 218 ml @ 0.03 MCG/KG/MIN 0. 734 mls/hr IV .Q24H [facility] Rx#:[id number] Other: Weight 52.163 kg GENERAL EXAM: Alert, 73-year-old white male cachectic and weak, fairly comfortable in no apparent distress. HEAD: Normocephalic and atraumatic EYES: Normal reaction of pupils, equal size. NOSE: Clear with pink turbinates. THROAT: There is very poor dentition. No erythema or exudates. NECK: There is an anterior soft tissue mass with purulent draining fluid. CHEST: No chest wall deformity. There is a soft tissue mass anterior midline. LUNGS: Equal air entry with no crackles, wheeze, rhonchi or dullness. On 2 L/m nasal cannula. SpO2 is 97%. No conversational dyspnea or accessory muscle use.. CVS: S1 and S2 normal with no audible murmur, regular rhythm. No extra heart sounds ABDOMEN: No hepatosplenomegaly, active bowel sounds, no guarding or rigidity. SPINE: No scoliosis or deformity SKIN: No rashes CENTRAL NERVOUS SYSTEM: No focal deficits, tone is normal in all 4 extremities. EXTREMITIES: There is no peripheral edema, clubbing, or cyanosis. Peripheral pulses are intact. Results - Laboratory Findings CBC and BMP: 03/11/23 06:04 03/11/23 05:55 PT/INR, D-dimer PT 17.4 sec (10.0-12.5) H 03/10/23 17:26 INR 1.7 (<1.2) H 03/10/23 17:26 Abnormal lab findings: Abnormal Labs 03/10/23 03/10/23 03/10/23 17:26 17:26 17:26 WBC 14.5 H Neutrophils # 10.8 H Monocytes # 1.3 H PT 17.4 H INR 1.7 H APTT 31.9 H Sodium 127 L Chloride 79 L Carbon Dioxide 36 H BUN 55 H Creatinine 2.56 H Plasma Lactic Acid Jeffrey Calcium 7.3 L AST 103 H ALT 67 H Troponin I C-Reactive Protein 5.1 H Total Protein 5.6 L Albumin 2.4 L Urine Protein Urine Ketones Ur Leukocyte Esterase Urine RBC Urine WBC Urine WBC Clumps Urine Bacteria Hyaline Casts Urine Mucus 03/10/23 03/10/23 03/10/23 17:26 17:26 23:47 WBC Neutrophils # Monocytes # PT INR APTT Sodium Chloride Carbon Dioxide BUN Creatinine Plasma Lactic Acid Jeffrey 2.5 H* Calcium AST ALT Troponin I 0.064 H* 0.073 H* C-Reactive Protein Total Protein Albumin Urine Protein Urine Ketones Ur Leukocyte Esterase Urine RBC Urine WBC Urine WBC Clumps Urine Bacteria Hyaline Casts Urine Mucus 03/11/23 01:07 WBC Neutrophils # Monocytes # PT INR APTT Sodium Chloride Carbon Dioxide BUN Creatinine Plasma Lactic Acid Jeffrey Calcium AST ALT Troponin I C-Reactive Protein Total Protein Albumin Urine Protein Trace H Urine Ketones 1+ H Ur Leukocyte Esterase Large H Urine RBC 8 H Urine WBC >182 H Urine WBC Clumps Many H Urine Bacteria Occasional H Hyaline Casts 66 H Urine Mucus Occasional H - Diagnostic Findings Chest x-ray: image reviewed Assessment and Plan Assessment: Neck mass, concerning for neoplasm with suspected necrosis and infection draining a purulent drainage. Chest CT demonstrates an irregular soft tissue density within the subglottic airway at the level of the larynx which significantly narrows at this level and there is a small residual passage. No significant stridor on clinical exam. Suspected sepsis and septic shock, refractory to fluid resuscitation, currently requiring vasopressors Acute kidney injury, related to hypotension and shock Possible UTI Hypovolemic hyponatremia, possibly related to poor oral intake Severe protein calorie malnutrition and cachexia Elevated troponins, possibly related to supply/demand mismatch and sepsis History of atrial fibrillation, normally anticoagulated on Xarelto History of implanted AICD/pacemaker, currently V-paced rhythm History of hypertension History of hyperlipidemia History of prostate cancer status post prostatectomy Chronic ongoing tobacco dependence Plan: Patient's medications, labs, imaging reviewed. Patient's airway is patent. No significant stridor. Patient was given a dose of Solu-Cortef in the emergency room. Patient would likely be a very difficult intubation and will likely require tracheostomy. The neck wound is currently draining a purulent drainage. Blood cultures are pending. Wound cultures will be collected. ENT and general surgery have been consulted. Empirically covered on antibiotics. Blood pressure remains hypotensive despite aggressive fluid resuscitation and the addition of norepinephrine, will add vasopressin at physiological dose. A central line was placed by the ER physician. Patient's prognosis is guarded. Condition is critical. He will be admitted to intensive care unit once bed available. Further recommendations are forthcoming. I have personally seen and examined the patient, performed the documentation and the assessment and plan as written. Number of minutes spent on the visit:20 Time with Patient: Greater than 30
[2023-03-11] MEDS ORDERED: ACETAMINOPHEN TAB 325 MG TAB PO PRN (09:46)
[2023-03-11] MEDS ORDERED: VANCOMYCIN 1,000 MG in SODIUM CHLORIDE 0.9% 250 ML IVPB ONE (12:00)
--- NOTE | 2023-03-11 12:09 | P.NPCON ---
History of Present Illness - Reason for Consult acute renal failure - History of Present Illness Patient is a 73-year-old male with history of chronic A. fib, hypertension, prostate cancer status post prostatectomy who is presenting to the ER with drainage noted from her neck mass which was noted about 1-2 weeks ago. Patient has had hoarseness of his voice 2. He has not been eating much. In the ER patient was hypotensive and currently maintained on levo fed at 0.2 g. Foul smelling drainage was noted from the neck mass. Patient is currently maintained on antibiotics. CT of the neck shows irregular soft tissue density within the subglottic airway suspicious of malignancy. No history of kidney diseases. Serum creatinine was 2.5 yesterday and down to 2.1 today. Previous creatinine was 0.7 on 07/31/2020 Patient has an indwelling Cardona catheter with good urine output noted. He is currently maintained on normal saline at 1 30 mL per hour. Review of Systems As per HPI Past Medical History Past Medical History: Atrial Fibrillation, Cancer, GERD/Reflux, Musculoskeletal Disorder Additional Past Medical History / Comment(s): PROSTATE CA, STATES HAS MULT. 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 Past Anesthesia/Blood Transfusion Reactions: No Reported Reaction Additional Past Anesthesia/Blood Transfusion Reaction / Comment(s): difficulty with ether Past Psychological History: Anxiety Past Drug Use History: Marijuana - Past Family History Mother Family Medical History: No Reported History, Vascular Disorder Additional Family Medical History / Comment(s): varicose veins Brother(s) Family Medical History: Vascular Disorder Additional Family Medical History / Comment(s): varicose veins Sister(s) Family Medical History: Vascular Disorder Additional Family Medical History / Comment(s): varicose veins Medications and Allergies Home Medications Medication Instructions Recorded Confirmed Type Omeprazole [PriLOSEC] 20 mg PO DAILY 12/19/13 03/10/23 History Aspirin [Adult Low Dose Aspirin EC] 81 mg PO DAILY 02/24/18 03/10/23 History Spironolactone [Aldactone] 25 mg PO DAILY 02/24/18 03/10/23 History lisinopriL [Zestril] 2.5 mg PO HS 02/24/18 03/10/23 History Atorvastatin [Lipitor] 80 mg PO HS #90 tab 03/01/18 03/10/23 Rx Digoxin [Lanoxin] 125 mcg PO DAILY 09/20/20 03/10/23 History Amiodarone [Cordarone] 200 mg PO BID 03/10/23 03/10/23 History Ascorbic Acid [Vitamin C] 1,000 mg PO DAILY 03/10/23 03/10/23 History Cholecalciferol [Vitamin D3 (25 25 mcg PO DAILY 03/10/23 03/10/23 History Mcg = 1000 Iu)] Metoprolol Succinate [Toprol XL] 200 mg PO BID 03/10/23 03/10/23 History Rivaroxaban [Xarelto] 20 mg PO HS 03/10/23 03/10/23 History Vitamin E (Dl,Tocopheryl Acet) 400 unit PO DAILY 03/10/23 03/10/23 History [Vitamin E (400 Iu = 180 mg)] Allergies Allergy/AdvReac Type Severity Reaction Status Date / Time No Known Allergies Allergy Verified 03/10/23 17:44 Physical Exam Vitals: Vital Signs Temp Pulse Resp BP Pulse Ox 03/11/23 09:00 70 18 84/60 95 03/11/23 08:00 68 18 82/61 96 03/11/23 06:15 70 15 80/62 96 03/11/23 06:00 70 16 83/62 96 03/11/23 05:45 69 17 80/66 94 L 03/11/23 05:30 68 17 93/72 96 03/11/23 05:15 70 18 84/66 97 03/11/23 05:00 70 17 89/69 96 03/11/23 04:45 70 20 100/53 97 03/11/23 04:30 69 18 88/71 94 L 03/11/23 04:15 70 15 86/63 95 03/11/23 04:00 70 18 93/69 92 L 03/11/23 03:45 70 16 98/74 95 03/11/23 03:30 70 12 86/62 97 03/11/23 03:25 77 15 84/60 96 03/11/23 03:20 82 14 78/61 97 03/11/23 03:15 81 17 77/60 95 03/11/23 03:10 70 18 75/54 91 L 03/11/23 03:05 70 17 76/56 97 03/11/23 03:00 97.7 F 70 16 80/58 96 03/11/23 02:50 70 16 84/47 95 03/11/23 02:45 70 16 76/59 95 03/11/23 02:40 70 14 73/55 96 03/11/23 02:35 77 15 95/47 96 03/11/23 02:30 77 14 74/57 96 03/11/23 02:20 70 16 72/55 96 03/11/23 02:00 70 16 70/52 96 03/11/23 01:40 70 15 67/53 96 03/11/23 01:31 69 14 68/54 96 03/11/23 01:00 71 16 69/48 97 03/11/23 00:29 70 03/11/23 00:13 70 03/10/23 20:09 78 16 73/40 94 L 03/10/23 18:18 70 18 88/62 99 03/10/23 16:33 98.5 F 61 14 73/39 93 L Intake and Output 03/10/23 03/11/23 03/11/23 22:59 06:59 14:59 Intake Total 14.624 20.783 Balance 14.624 20.783 Intake: Intake, IV Titration 14.624 20.783 Amount Norepinephrine 32 mg In 5.673 20.783 Sodium Chloride 0.9% 218 ml @ 0.03 MCG/KG/MIN 0. 734 mls/hr IV .Q24H [facility] Rx#:[id number] Vasopressin 60 unit In 8.951 Sodium Chloride 0.9% 150 ml @ 0.03 UNITS/MIN 4.59 mls/hr IV .Q24H [facility] Rx#: [id number] Other: Weight 52.163 kg Patient is awake, comfortable No acute distress Hoarseness of voice noted Examination of the heart S1 and S2 Examination of the lungs bilateral breath sounds are heard Neck mass noted which is currently dressed and some drainage noted from it as well which is dark colored Abdomen is soft nontender Examination of lower extremity shows no evidence of edema. Results - Lab Results Most recent lab results Calcium 6.6 mg/dL (8.4-10.2) L 03/11/23 05:55 Phosphorus 4.3 mg/dL (2.5-4.5) 03/11/23 05:55 Magnesium 1.9 mg/dL (1.6-2.3) 03/11/23 05:55 03/11/23 06:04 03/11/23 05:55 Assessment and Plan Assessment: 1. Acute kidney injury, ATN currently nonoliguric secondary to hypotension, improving. Check abdominal imaging. UA shows trace protein and WBCs more than 182. 2. Septic shock, possible secondary infection of neck mass/abscess formation. 3. Pyuria rule out UTI 4. Neck mass with high suspicion for malignancy 5. History of chronic A. fib maintained on Xarelto Plan: Continue aggressive IV hydration Check CT of the abdomen Repeat labs in a.m. Monitor vancomycin levels closely. Thank you for the consultation. We will continue to follow the patient with you during his hospitalization.
[2023-03-11] MEDS ORDERED: Potassium Replacement Protocol 1 EACH MISC MISCELLANE PRN (12:30)
[2023-03-11] MEDS: POTASSIUM CHLORIDE 10 MEQ in WATER FOR INJECTION 1 100ML.BAG IVPB SCH ×4 (13:02→18:23)
--- NOTE | 2023-03-11 13:33 | P.CRDCN ---
History of Present Illness History of present illness: HISTORY OF PRESENT ILLNESS: This is a 73-year-old male with a past medical history significant for urinary artery disease with previous stenting of the LAD, cardiomyopathy, AICD implantation, valvular heart disease, hypertension, hyperlipidemia, and atrial fibrillation. Patient follows in the office with Dr. Johnson. We have been asked to see the patient in consultation for abnormal troponins. Patient examined at the bedside in the ER. Patient presented to the hospital with a chief complaint of a neck mass that has been draining. He also reports decreased oral intake. The patient denies any chest pain or pressure. He denies any shortness of breath. The patient was found to be hypotensive upon arrival. He received IV fluid resuscitation and was started on vasopressors. * EKG reveals ventricular paced rhythm * Chest xray negative for acute process * Laboratory data: WBC 17.6. Hemoglobin 15.0. Platelet count 372. Sodium 132. Potassium 3.3. BUN 45. Creatinine 2.13. Troponin 0.064. 0.073. 0.074. * Current home cardiac medications include amiodarone 200 mg twice a day, aspirin 81 mg daily, Lipitor 80 mg at night, digoxin 125 g daily, metoprolol succinate 200 mg twice a day, lisinopril 2.5 mg at night, Xarelto 20 mg at night, Aldactone 25 mg daily * Most recent echocardiogram obtained in February 2022 revealed ejection fraction 45%, moderate TR, moderate MR * Cardiac catheterization history: February 2018 with stenting to the mid LAD REVIEW OF SYSTEMS: At the time of my exam: CONSTITUTIONAL: Denies fever or chills. HEENT: Denies blurred vision, vision changes, or eye pain. Denies hemoptysis CARDIOVASCULAR: Denies chest pain. Denies orthopnea. Denies PND. Denies palpitations RESPIRATORY: Denies shortness of breath. GASTROINTESTINAL: Denies abdominal pain. Denies nausea or vomiting. HEMATOLOGIC: Denies bleeding disorders. GENITOURINARY: Denies any blood in urine. SKIN: Denies pruitis. Denies rash. PHYSICAL EXAM: VITAL SIGNS: Reviewed. GENERAL: Well-developed in no acute distress. HEENT: Head is normocephalic. Pupils are equal, round. Sclerae anicteric. Mucous membranes of the mouth are moist. Neck with dressing noted covering draining wound. LUNGS: Respirations even and unlabored. Lungs essentially clear to auscultation bilaterally. HEART: Regular rate and rhythm. S1 and S2 heard. ABDOMEN: Soft. Nondistended. Nontender. EXTREMITIES: Normal range of motion. No clubbing or cyanosis. Peripheral pulses intact. No lower extremity edema NEUROLOGIC: Awake and alert. Oriented x 3. ASSESSMENT: Neck mass, concerning for neoplasm with suspected necrosis and infection Sepsis Hypotension requiring IV fluid resuscitation and vasopressors Acute kidney injury Possible urinary tract infection Abnormal troponins, flat, likely secondary to sepsis and acute kidney injury Permanent atrial fibrillation Coronary artery disease with stenting of the LAD History of cardiomyopathy with AICD implantation Protein calorie malnutrition Valvular heart disease Hypertension Hyperlipidemia Nicotine dependence PLAN: An acute coronary event has been ruled out Patient's home cardiac medications remain on hold as he has been hypotensive requiring vasopressors Hold Xarelto at this time pending further workup and possible need for pro cedures Obtain 2-D echo to assess cardiac structure and function Further recommendations pending patient's course Nurse practitioner note has been reviewed by physician. Signing provider agrees with the documented findings, assessment, and plan of care. Past Medical History Past Medical History: Atrial Fibrillation, Cancer, GERD/Reflux, Musculoskeletal Disorder Additional Past Medical History / Comment(s): PROSTATE CA, STATES HAS MULT. 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 Past Anesthesia/Blood Transfusion Reactions: No Reported Reaction Additional Past Anesthesia/Blood Transfusion Reaction / Comment(s): difficulty with ether Past Psychological History: Anxiety Past Drug Use History: Marijuana - Past Family History Mother Family Medical History: No Reported History, Vascular Disorder Additional Family Medical History / Comment(s): varicose veins Brother(s) Family Medical History: Vascular Disorder Additional Family Medical History / Comment(s): varicose veins Sister(s) Family Medical History: Vascular Disorder Additional Family Medical History / Comment(s): varicose veins Medications and Allergies Home Medications Medication Instructions Recorded Confirmed Type Omeprazole [PriLOSEC] 20 mg PO DAILY 12/19/13 03/10/23 History Aspirin [Adult Low Dose Aspirin EC] 81 mg PO DAILY 02/24/18 03/10/23 History Spironolactone [Aldactone] 25 mg PO DAILY 02/24/18 03/10/23 History lisinopriL [Zestril] 2.5 mg PO HS 02/24/18 03/10/23 History Atorvastatin [Lipitor] 80 mg PO HS #90 tab 03/01/18 03/10/23 Rx Digoxin [Lanoxin] 125 mcg PO DAILY 09/20/20 03/10/23 History Amiodarone [Cordarone] 200 mg PO BID 03/10/23 03/10/23 History Ascorbic Acid [Vitamin C] 1,000 mg PO DAILY 03/10/23 03/10/23 History Cholecalciferol [Vitamin D3 (25 25 mcg PO DAILY 03/10/23 03/10/23 History Mcg = 1000 Iu)] Metoprolol Succinate [Toprol XL] 200 mg PO BID 03/10/23 03/10/23 History Rivaroxaban [Xarelto] 20 mg PO HS 03/10/23 03/10/23 History Vitamin E (Dl,Tocopheryl Acet) 400 unit PO DAILY 03/10/23 03/10/23 History [Vitamin E (400 Iu = 180 mg)] Allergies Allergy/AdvReac Type Severity Reaction Status Date / Time No Known Allergies Allergy Verified 03/10/23 17:44 Physical Exam Vitals: Vital Signs Temp Pulse Resp BP Pulse Ox 03/11/23 12:30 71 17 76/60 85 L 03/11/23 12:25 68 18 76/60 94 L 03/11/23 12:20 68 19 76/60 84 L 03/11/23 12:15 70 17 79/61 97 03/11/23 12:10 73 18 79/61 96 03/11/23 12:05 71 19 79/61 99 03/11/23 12:00 70 17 72/56 95 03/11/23 11:55 69 17 72/56 84 L 03/11/23 11:50 68 17 72/56 88 L 03/11/23 11:45 69 18 73/60 96 03/11/23 11:40 69 17 73/60 86 L 03/11/23 11:35 69 15 73/60 03/11/23 11:30 69 11 L 77/65 98 03/11/23 11:25 16 96 03/11/23 11:20 15 77/65 91 L 03/11/23 11:15 68 18 78/59 92 L 03/11/23 11:10 69 17 78/59 03/11/23 11:05 71 18 78/59 93 L 03/11/23 11:00 69 11 L 81/61 94 L 03/11/23 10:55 69 12 81/61 93 L 03/11/23 10:50 68 14 81/61 89 L 03/11/23 10:45 70 17 82/63 98 03/11/23 10:40 69 17 82/63 79 L 03/11/23 10:35 69 12 82/63 03/11/23 10:30 69 15 81/60 94 L 03/11/23 10:25 69 16 81/60 03/11/23 10:20 70 16 81/60 93 L 03/11/23 10:15 72 18 80/64 97 03/11/23 10:10 69 19 80/64 94 L 03/11/23 10:05 70 18 80/64 95 03/11/23 10:00 70 17 80/58 93 L 03/11/23 09:55 70 18 80/58 91 L 03/11/23 09:50 70 12 80/58 03/11/23 09:45 16 79/59 95 03/11/23 09:40 76 17 79/59 91 L 03/11/23 09:35 70 16 79/59 97 03/11/23 09:30 70 17 81/63 96 03/11/23 09:25 70 16 81/63 96 03/11/23 09:20 15 81/63 93 L 03/11/23 09:15 12 84/60 92 L 03/11/23 09:10 70 16 84/60 97 03/11/23 09:05 69 18 84/60 95 03/11/23 09:00 69 13 84/57 95 03/11/23 08:55 70 14 84/57 97 03/11/23 08:50 68 18 84/57 94 L 03/11/23 08:45 68 15 82/61 96 03/11/23 08:40 70 16 82/61 95 03/11/23 08:35 70 15 82/61 94 L 03/11/23 08:30 70 20 74/61 95 03/11/23 08:25 69 16 74/61 95 03/11/23 08:00 68 18 82/61 96 03/11/23 06:15 70 15 80/62 96 03/11/23 06:00 70 16 83/62 96 03/11/23 05:45 69 17 80/66 94 L 03/11/23 05:30 68 17 93/72 96 03/11/23 05:15 70 18 84/66 97 03/11/23 05:00 70 17 89/69 96 03/11/23 04:45 70 20 100/53 97 03/11/23 04:30 69 18 88/71 94 L 03/11/23 04:15 70 15 86/63 95 03/11/23 04:00 70 18 93/69 92 L 03/11/23 03:45 70 16 98/74 95 03/11/23 03:30 70 12 86/62 97 03/11/23 03:25 77 15 84/60 96 03/11/23 03:20 82 14 78/61 97 03/11/23 03:15 81 17 77/60 95 03/11/23 03:10 70 18 75/54 91 L 03/11/23 03:05 70 17 76/56 97 03/11/23 03:00 97.7 F 70 16 80/58 96 03/11/23 02:50 70 16 84/47 95 03/11/23 02:45 70 16 76/59 95 03/11/23 02:40 70 14 73/55 96 03/11/23 02:35 77 15 95/47 96 03/11/23 02:30 77 14 74/57 96 03/11/23 02:20 70 16 72/55 96 03/11/23 02:00 70 16 70/52 96 03/11/23 01:40 70 15 67/53 96 03/11/23 01:31 69 14 68/54 96 03/11/23 01:00 71 16 69/48 97 03/11/23 00:29 70 03/11/23 00:13 70 03/10/23 20:09 78 16 73/40 94 L 03/10/23 18:18 70 18 88/62 99 03/10/23 16:33 98.5 F 61 14 73/39 93 L Intake and Output 03/10/23 03/11/2323 22:59 06:59 14:59 Intake Total 14.624 20.783 Balance 14.624 20.783 Intake: Intake, IV Titration 14.624 20.783 Amount Norepinephrine 32 mg In 5.673 20.783 Sodium Chloride 0.9% 218 ml @ 0.03 MCG/KG/MIN 0. 734 mls/hr IV .Q24H [facility] Rx#:[id number] Vasopressin 60 unit In 8.951 Sodium Chloride 0.9% 150 ml @ 0.03 UNITS/MIN 4.59 mls/hr IV .Q24H [facility] Rx#: [id number] Other: Weight 52.163 kg Results 03/11/23 06:04 03/11/23 05:55 Cardiac Enzymes 03/10/23 03/10/23 03/10/23 Range/Units 17:26 17:26 23:47 AST 103 H (17-59) U/L Troponin I 0.064 H* 0.073 H* (0.000-0.034) ng/mL 03/11/23 03/11/23 Range/Units 05:55 06:04 AST 97 H (17-59) U/L Troponin I 0.074 H* (0.000-0.034) ng/mL Coagulation 03/10/23 Range/Units 17:26 PT 17.4 H (10.0-12.5) sec APTT 31.9 H (22.0-30.0) sec CBC 03/10/23 03/11/23 Range/Units 17:26 06:04 WBC 14.5 H 17.6 H (3.8-10.6) k/uL RBC 4.40 4.37 (4.30-5.90) m/uL Hgb 15.4 15.0 (13.0-17.5) gm/dL Hct 43.6 43.6 (39.0-53.0) % Plt Count 334 372 (150-450) k/uL Comprehensive Metabolic Panel 03/10/23 03/11/23 Range/Units 17:26 05:55 Sodium 127 L 132 L (137-145) mmol/L Potassium 3.6 3.3 L (3.5-5.1) mmol/L Chloride 79 L 93 L (98-107) mmol/L Carbon Dioxide 36 H 24 (22-30) mmol/L BUN 55 H 45 H (9-20) mg/dL Creatinine 2.56 H 2.13 H (0.66-1.25) mg/dL Glucose 82 62 L (74-99) mg/dL Calcium 7.3 L 6.6 L (8.4-10.2) mg/dL AST 103 H 97 H (17-59) U/L ALT 67 H 61 H (4-49) U/L Alkaline Phosphatase 72 69 (38-126) U/L Total Protein 5.6 L 5.0 L (6.3-8.2) g/dL Albumin 2.4 L 2.1 L (3.5-5.0) g/dL Current Medications Generic Name Dose Route Start Last Admin Trade Name Freq PRN Reason Stop Dose Admin Acetaminophen 650 mg 03/11/23 09:46 Acetaminophen Tab 325 Mg Tab PO Q6HR PRN Fever and/ or Pain Albuterol/Ipratropium 3 ml 03/10/23 23:38 Ipratropium-Albuterol 3 Ml Neb INHALATION RT-QID PRN Shortness Of Breath Or Wheezing Ascorbic Acid 1,000 mg 03/12/23 09:00 Ascorbic Acid 500 Mg Tab PO DAILY [facility] Aspirin 81 mg 03/12/23 09:00 Aspirin 81 Mg PO DAILY [facility] Atorvastatin Calcium 80 mg 03/11/23 21:00 Atorvastatin 80 Mg Tab PO HS [facility] Cholecalciferol 25 mcg 03/12/23 09:00 Cholecalciferol 25 Mcg (1000 Iu) Tablet PO DAILY [facility] Famotidine 20 mg 03/11/23 21:00 Famotidine 20 Mg/2 Ml Vial IV Q12HR ANDRES[facility] Heparin Sodium (Porcine) 5,000 unit 03/11/23 16:00 Heparin Sodium,Porcine 5,000 Unit/Ml 1 Ml Vial SQ Q8HR ANDRES[facility] Vancomycin HCl 1,000 mg/ 250 mls @ 125 mls/hr 03/11/23 12:00 03/11/23 13:02 Sodium Chloride IVPB 03/11/23 13:59 125 mls/hr ONCE ONE Administration Sodium Chloride 1,000 mls @ 130 mls/hr 03/10/23 22:45 03/11/23 00:52 Saline 0.9% IV 130 mls/hr .Q7H42M ANDRESSA Administration Norepinephrine Bitartrate 32 250 mls @ 0.734 mls/hr 03/11/23 00:15 03/11/23 07:00 mg/ Sodium Chloride IV 03/12/23 00:14 0.18 mcg/kg/min .Q24H [facility] 4.401 mls/hr Titration Protocol 0.03 MCG/KG/MIN Ampicillin Sodium/Sulbactam 100 mls @ 200 mls/hr 03/11/23 07:00 03/11/23 06:54 Sodium 3 gm/ Sodium Chloride IVPB 200 mls/hr Q12H ANDRESSA Administration Protocol Vasopressin 60 unit/ Sodium 153 mls @ 4.59 mls/hr 03/11/23 03:00 03/11/23 05:33 Chloride IV 0.01 units/min .Q24H ANDRES[facility] 1.53 mls/hr Titration Protocol 0.03 UNITS/MIN Potassium Chloride 10 meq/ IV 100 mls @ 100 mls/hr 03/11/23 13:00 03/11/23 13:02 Solution IVPB 03/11/23 16:59 100 mls/hr Q1HR ANDRESSA Administration Protocol Miscellaneous Information 1 each 03/10/23 18:36 Vancomycin Iv Per Pharmacy 1 Each Misc MISCELLANE DIRECTED PRN Per Protocol Protocol Miscellaneous Information 1 each 03/11/23 12:30 Potassium Replacement Protocol 1 Each Misc MISCELLANE DAILY PRN Per Protocol Protocol Naloxone HCl 0.2 mg 03/10/23 22:42 Naloxone 0.4 Mg/Ml 1 Ml Vial IV Q2M PRN Opioid Reversal Ondansetron HCl 4 mg 03/10/23 22:42 Ondansetron 4 Mg/2 Ml Vial IVP Q8HR PRN Nausea And Vomiting Intake and Output 03/10/23 03/11/23 03/11/23 22:59 06:59 14:59 Intake Total 14.624 20.783 Balance 14.624 20.783 Intake: Intake, IV Titration 14.624 20.783 Amount Norepinephrine 32 mg In 5.673 20.783 Sodium Chloride 0.9% 218 ml @ 0.03 MCG/KG/MIN 0. 734 mls/hr IV .Q24H [facility] Rx#:[id number] Vasopressin 60 unit In 8.951 Sodium Chloride 0.9% 150 ml @ 0.03 UNITS/MIN 4.59 mls/hr IV .Q24H [facility] Rx#: [id number] Other: Weight 52.163 kg 03/11/23 06:04 03/11/23 05:55
--- NOTE | 2023-03-11 13:49 | CT ---
EXAMINATION TYPE: CT abdomen pelvis wo con DATE OF EXAM: 03/11/2023 COMPARISON: None HISTORY: derick, malignancy CT DLP: 503.6 mGycm Automated exposure control for dose reduction was used. TECHNIQUE: Helical acquisition of images was performed from the lung bases through the pelvis. FINDINGS: There are moderate bilateral pleural effusions and moderate by basilar infiltrates consistent with at electasis and/or pneumonia. There is mild to moderate ascites particularly adjacent to the liver and spleen and within the cul-de -sac. There is mild anasarca. There is mild cholelithiasis but no biliary ductal dilatation. There is no organomegaly involving the liver, pancreas or spleen. The pancreas is atrophic. There are no adrenal masses. There is no renal calcification or hydronephrosis. The caliber the abdominal aorta is normal and there is no retroperitoneal adenopathy or hemorrhage. The bowel loops are normal in caliber and there is no dilatation or obstruction. There is no free int raperitoneal air. There is no pelvic mass or adenopathy. There is an 8.6 mm sclerotic density in the left iliac wing. IMPRESSION: 1. Moderate bilateral pleural effusions by basilar infiltrates is described above. 2. ascites and mild anasarca 3. small sclerotic lesion in the left iliac wing
[2023-03-11] MEDS: HEPARIN SODIUM,PORCINE 5,000 UNIT/ML 1 ML VIAL SQ SCH (16:32)
--- NOTE | 2023-03-11 16:40 | P.HPIM ---
History of Present Illness H&P Date: 03/11/23 This is a 73 year old male with medical history of atrial fibrillation anticoagulated with xarelto, gastroesophageal reflux disease, prostate cancer with prostatectomy, smoking history 1/2 pack per day and reports occasional marijuana use. Patient comes in to the ER for weakness unable to ambulate and also evaluation of a draining neck mass. Patient follows with Dr Azevedo has not been seen in the office per patient for atleast 1 year. He reports having a "raspy voice" for the last 2 years. He was in to see his rn case manager Dr. Johnson earlier this month states his cardiac medications were adjusted. States about 2 weeks ago he noticed swelling in the front of his neck and for the last week or so he has been having purulent drainage from the neck mass. Denies history of lung cancer. He has not been in to see a medical doctor for evaluation of this neck mass. Soft tissue neck CT was done showing no clear evidence of bulky adenopathy or fluid collection in the neck. Within the subglottic airway at the level of the larynx there is abnormal irregular soft tissue density which significantly narrows the airway at this level with a small residual patent passage. Details in report. Primary consideration is neoplasm, this does not have the typical appearance of a fluid collection/abscess, but infection is in the differential. Soft tissue density appears to extend from #3 to the anterior surface of the neck just right of midline. Mild/moderate emphysematous changes in the lung apices. Chest xray is negative for acute findings. Initial blood work reveals white count of 14.5, INR of 1.7, sodium 127, BUN 55, creatinine 2.56, Lactic acid 2.5, proBNP of 5120. Patient has troponin elevation 0.064, 0.073. Urinalysis showing trace protein, large leukocyte esterase, occasional bacterial. Patient is hypotensive on admission BP down to 68/54. He was given 4.5L of normal saline fluid bolus. Admitted to the hospital for sepsis and evaluation of the neck mass which was cultured, and also blood cultures taken. He is requiring levophed and vasopressin support and admitted as an ICU hold currently still in the ER. He has been started on empiric antibiotics with IV vancomycin and IV unasyn. Multiple consultations in place including mds nurse, nephrology, cardiology, oncology, ID and radiation/oncologist. REVIEW OF SYSTEMS: CONSTITUTIONAL: No fever, no malaise. Reports weakness and fatigue. HEENT: No recent visual problems or hearing problems. Reports difficulty swallowing, raspy voice. Having purulent drainage from the neck. CARDIOVASCULAR: No chest pain, orthopnea, PND, no palpitations, no syncope. PULMONARY: No shortness of breath, no cough, no hemoptysis. GASTROINTESTINAL: No diarrhea, no nausea, no vomiting, no abdominal pain. NEUROLOGICAL: No headaches, no weakness, no numbness. HEMATOLOGICAL: Denies any bleeding or petechiae. GENITOURINARY: Denies any burning micturition, frequency, or urgency. MUSCULOSKELETAL/RHEUMATOLOGICAL: Denies any joint pain, swelling, or any muscle pain. ENDOCRINE: Denies any polyuria or polydipsia. The rest of the 14-point review of systems is negative. PHYSICAL EXAMINATION: GENERAL: The patient is alert and oriented x3, not in any acute distress. Well developed, well nourished. HEENT: Pupils are round and equally reacting to light. EOMI. No scleral icterus. No conjunctival pallor. Normocephalic, atraumatic. No pharyngeal erythema. No thyromegaly. There is a large neck pass right of midline with thick purulent drainage, non bloody. There is surrounding erythema. Voice is raspy. Poor dentition. CARDIOVASCULAR: S1 and S2 present. No murmurs, rubs, or gallops. PULMONARY: Chest is clear to auscultation, no wheezing or crackles. ABDOMEN: Soft, nontender, nondistended, normoactive bowel sounds. No palpable organomegaly. MUSCULOSKELETAL: No joint swelling or deformity. EXTREMITIES: No cyanosis, clubbing, or pedal edema. NEUROLOGICAL: Gross neurological examination did not reveal any focal deficits. Diffuse weakness. SKIN: No rashes. Assessment and Plan Neck mass with purulent drainage suspicious for malignancy and necrosis with possible underlying bacterial infection/cellulitis with sepsis present on a dmission. There is evidence of narrowing of the airway on imaging and ENT has been consulted for evaluation. Oncology and Rad/Onc have been consulted. Septic shock requiring fluid resuscitation and on vasopressor support with levophed and vasopression Lactic acidosis Hyponatremia hypovolemic improving with IV fluids patient will be continued on normal saline at 130 mls/hr. Acute kidney injury due to acute tubular necrosis from sepsis and shock expected to improve with IV fluids, nephrology is placed on consultation Elevated troponin likely type 2 ID and sepsis, echocardiogram has been ordered, cardiology consultation in place and following. Hypokalemia from poor oral intake supplemented with IV potassium and recommend to repeat labs in the AM. Permanent atrial fibrillation anticoagulated with xarelto on an outpatient basis Hx of AICD and cardiomyopathy with EF of 45% Coronary artery disease and prior stent to the LAD Hx of prostate cancer with prostatectomy Hypertension hx currently hypotensive holding lisinopril at this time Hyperlipidemia resumed on atorvastatin Severe protein calorie malnutrition with BMI of 16.5 Patient has had recent weight loss of 35 lbs in the last month and also reports difficulty swallowing likely from the neck mass and airway narrowing. Chronic nicotine use GI prophylaxis DVT prophylaxis with subcu heparin, xarelto is being held at this time while patient is undergo further work up for the next mass. Full Code The impression and plan of care has been dictated by Gunjan Watkins, Nurse Practitioner as directed. Dr. Elda MD I have performed a history and physical examination and medical decision making of this patient, discussed the same with the dictator, and agree with the dictators assessment and plan as written, documented as a scribe. Based on total visit time, I have performed more than 50% of this visit. Past Medical History Past Medical History: Atrial Fibrillation, Cancer, GERD/Reflux, Musculoskeletal Disorder Additional Past Medical History / Comment(s): PROSTATE CA, STATES HAS MULT. 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 Past Anesthesia/Blood Transfusion Reactions: No Reported Reaction Additional Past Anesthesia/Blood Transfusion Reaction / Comment(s): difficulty with ether Past Psychological History: Anxiety Past Drug Use History: Marijuana - Past Family History Mother Family Medical History: No Reported History, Vascular Disorder Additional Family Medical History / Comment(s): varicose veins Brother(s) Family Medical History: Vascular Disorder Additional Family Medical History / Comment(s): varicose veins Sister(s) Family Medical History: Vascular Disorder Additional Family Medical History / Comment(s): varicose veins Medications and Allergies Home Medications Medication Instructions Recorded Confirmed Type Omeprazole [PriLOSEC] 20 mg PO DAILY 12/19/13 03/10/23 History Aspirin [Adult Low Dose Aspirin EC] 81 mg PO DAILY 02/24/18 03/10/23 History Spironolactone [Aldactone] 25 mg PO DAILY 02/24/18 03/10/23 History lisinopriL [Zestril] 2.5 mg PO HS 02/24/18 03/10/23 History Atorvastatin [Lipitor] 80 mg PO HS #90 tab 03/01/18 03/10/23 Rx Digoxin [Lanoxin] 125 mcg PO DAILY 09/20/20 03/10/23 History Amiodarone [Cordarone] 200 mg PO BID 03/10/23 03/10/23 History Ascorbic Acid [Vitamin C] 1,000 mg PO DAILY 03/10/23 03/10/23 History Cholecalciferol [Vitamin D3 (25 25 mcg PO DAILY 03/10/23 03/10/23 History Mcg = 1000 Iu)] Metoprolol Succinate [Toprol XL] 200 mg PO BID 03/10/23 03/10/23 History Rivaroxaban [Xarelto] 20 mg PO HS 03/10/23 03/10/23 History Vitamin E (Dl,Tocopheryl Acet) 400 unit PO DAILY 03/10/23 03/10/23 History [Vitamin E (400 Iu = 180 mg)] Allergies Allergy/AdvReac Type Severity Reaction Status Date / Time No Known Allergies Allergy Verified 03/10/23 17:44 Physical Exam Vitals: Vital Signs Temp Pulse Resp BP Pulse Ox 03/11/23 09:00 70 18 84/60 95 03/11/23 08:00 68 18 82/61 96 03/11/23 06:15 70 15 80/62 96 03/11/23 06:00 70 16 83/62 96 03/11/23 05:45 69 17 80/66 94 L 03/11/23 05:30 68 17 93/72 96 03/11/23 05:15 70 18 84/66 97 03/11/23 05:00 70 17 89/69 96 03/11/23 04:45 70 20 100/53 97 03/11/23 04:30 69 18 88/71 94 L 03/11/23 04:15 70 15 86/63 95 03/11/23 04:00 70 18 93/69 92 L 03/11/23 03:45 70 16 98/74 95 03/11/23 03:30 70 12 86/62 97 03/11/23 03:25 77 15 84/60 96 03/11/23 03:20 82 14 78/61 97 03/11/23 03:15 81 17 77/60 95 03/11/23 03:10 70 18 75/54 91 L 03/11/23 03:05 70 17 76/56 97 03/11/23 03:00 97.7 F 70 16 80/58 96 03/11/23 02:50 70 16 84/47 95 03/11/23 02:45 70 16 76/59 95 03/11/23 02:40 70 14 73/55 96 03/11/23 02:35 77 15 95/47 96 03/11/23 02:30 77 14 74/57 96 03/11/23 02:20 70 16 72/55 96 03/11/23 02:00 70 16 70/52 96 03/11/23 01:40 70 15 67/53 96 03/11/23 01:31 69 14 68/54 96 03/11/23 01:00 71 16 69/48 97 03/11/23 00:29 70 03/11/23 00:13 70 03/10/23 20:09 78 16 73/40 94 L 03/10/23 18:18 70 18 88/62 99 03/10/23 16:33 98.5 F 61 14 73/39 93 L Intake and Output 03/10/23 03/11/23 03/11/23 22:59 06:59 14:59 Intake Total 14.624 20.783 Balance 14.624 20.783 Intake: Intake, IV Titration 14.624 20.783 Amount Norepinephrine 32 mg In 5.673 20.783 Sodium Chloride 0.9% 218 ml @ 0.03 MCG/KG/MIN 0. 734 mls/hr IV .Q24H [facility] Rx#:[id number] Vasopressin 60 unit In 8.951 Sodium Chloride 0.9% 150 ml @ 0.03 UNITS/MIN 4.59 mls/hr IV .Q24H [facility] Rx#: [id number] Other: Weight 52.163 kg Results CBC & Chem 7: 03/11/23 06:04 12/28/23 05:55 Labs: Abnormal Lab Results - Last 24 Hours (Table) 03/10/23 03/10/23 03/10/23 Range/Units 17:26 17:26 17:26 WBC 14.5 H (3.8-10.6) k/uL Neutrophils # 10.8 H (1.3-7.7) k/uL Monocytes # 1.3 H (0-1.0) k/uL PT 17.4 H (10.0-12.5) sec INR 1.7 H (<1.2) APTT 31.9 H (22.0-30.0) sec Sodium 127 L (137-145) mmol/L Potassium (3.5-5.1) mmol/L Chloride 79 L (98-107) mmol/L Carbon Dioxide 36 H (22-30) mmol/L BUN 55 H (9-20) mg/dL Creatinine 2.56 H (0.66-1.25) mg/dL Glucose (74-99) mg/dL Plasma Lactic Acid Jeffrey (0.7-2.0) mmol/L Calcium 7.3 L (8.4-10.2) mg/dL AST 103 H (17-59) U/L ALT 67 H (4-49) U/L Troponin I (0.000-0.034) ng/mL C-Reactive Protein 5.1 H (<1.0) mg/dL Total Protein 5.6 L (6.3-8.2) g/dL Albumin 2.4 L (3.5-5.0) g/dL Urine Protein (Negative) Urine Ketones (Negative) Ur Leukocyte Esterase (Negative) Urine RBC (0-5) /hpf Urine WBC (0-5) /hpf Urine WBC Clumps (None) /hpf Urine Bacteria (None) /hpf Hyaline Casts (0-2) /lpf Urine Mucus (None) /hpf 03/10/23 03/10/23 03/10/23 Range/Units 17:26 17:26 23:47 WBC (3.8-10.6) k/uL Neutrophils # (1.3-7.7) k/uL Monocytes # (0-1.0) k/uL PT (10.0-12.5) sec INR (<1.2) APTT (22.0-30.0) sec Sodium (137-145) mmol/L Potassium (3.5-5.1) mmol/L Chloride (98-107) mmol/L Carbon Dioxide (22-30) mmol/L BUN (9-20) mg/dL Creatinine (0.66-1.25) mg/dL Glucose (74-99) mg/dL Plasma Lactic Acid Jeffrey 2.5 H* (0.7-2.0) mmol/L Calcium (8.4-10.2) mg/dL AST (17-59) U/L ALT (4-49) U/L Troponin I 0.064 H* 0.073 H* (0.000-0.034) ng/mL C-Reactive Protein (<1.0) mg/dL Total Protein (6.3-8.2) g/dL Albumin (3.5-5.0) g/dL Urine Protein (Negative) Urine Ketones (Negative) Ur Leukocyte Esterase (Negative) Urine RBC (0-5) /hpf Urine WBC (0-5) /hpf Urine WBC Clumps (None) /hpf Urine Bacteria (None) /hpf Hyaline Casts (0-2) /lpf Urine Mucus (None) /hpf 03/11/23 03/11/23 03/11/23 Range/Units 01:07 05:55 06:04 WBC 17.6 H (3.8-10.6) k/uL Neutrophils # 14.2 H (1.3-7.7) k/uL Monocytes # 2.0 H (0-1.0) k/uL PT (10.0-12.5) sec INR (<1.2) APTT (22.0-30.0) sec Sodium 132 L (137-145) mmol/L Potassium 3.3 L (3.5-5.1) mmol/L Chloride 93 L (98-107) mmol/L Carbon Dioxide (22-30) mmol/L BUN 45 H (9-20) mg/dL Creatinine 2.13 H (0.66-1.25) mg/dL Glucose 62 L (74-99) mg/dL Plasma Lactic Acid Jeffrey (0.7-2.0) mmol/L Calcium 6.6 L (8.4-10.2) mg/dL AST 97 H (17-59) U/L ALT 61 H (4-49) U/L Troponin I (0.000-0.034) ng/mL C-Reactive Protein (<1.0) mg/dL Total Protein 5.0 L (6.3-8.2) g/dL Albumin 2.1 L (3.5-5.0) g/dL Urine Protein Trace H (Negative) Urine Ketones 1+ H (Negative) Ur Leukocyte Esterase Large H (Negative) Urine RBC 8 H (0-5) /hpf Urine WBC >182 H (0-5) /hpf Urine WBC Clumps Many H (None) /hpf Urine Bacteria Occasional H (None) /hpf Hyaline Casts 66 H (0-2) /lpf Urine Mucus Occasional H (None) /hpf 03/11/23 Range/Units 06:04 WBC (3.8-10.6) k/uL Neutrophils # (1.3-7.7) k/uL Monocytes # (0-1.0) k/uL PT (10.0-12.5) sec INR (<1.2) APTT (22.0-30.0) sec Sodium (137-145) mmol/L Potassium (3.5-5.1) mmol/L Chloride (98-107) mmol/L Carbon Dioxide (22-30) mmol/L BUN (9-20) mg/dL Creatinine (0.66-1.25) mg/dL Glucose (74-99) mg/dL Plasma Lactic Acid Jeffrey (0.7-2.0) mmol/L Calcium (8.4-10.2) mg/dL AST (17-59) U/L ALT (4-49) U/L Troponin I 0.074 H* (0.000-0.034) ng/mL C-Reactive Protein (<1.0) mg/dL Total Protein (6.3-8.2) g/dL Albumin (3.5-5.0) g/dL Urine Protein (Negative) Urine Ketones (Negative) Ur Leukocyte Esterase (Negative) Urine RBC (0-5) /hpf Urine WBC (0-5) /hpf Urine WBC Clumps (None) /hpf Urine Bacteria (None) /hpf Hyaline Casts (0-2) /lpf Urine Mucus (None) /hpf Assessment and Plan Time with Patient: Greater than 30
--- NOTE | 2023-03-11 17:49 | P.CNPUL ---
History of Present Illness Consult date: 03/11/23 Chief complaint: neck abscess History of present illness: History of Present Illness Consult date: 03/11/23 Requesting physician: Vincent Thapa Reason for consult: other (Hypotension/sepsis) Chief complaint: Neck pain, low blood pressures, weakness History of present illness: I am seeing this patient in consultation today 03/11/2023 in the emergency room after he presented with chief complaint of draining neck wound. He was weak and found to have low blood pressures on EMS arrival. Patient is a 73-year-old white male with past medical history significant for atrial fibrillation anticoagulated on Xarelto, AICD implantation, hypertension, hyperlipidemia, prostate cancer status post prostatectomy, and is a chronic ongoing tobacco smoker. His primary care provider is Dr. Azevedo. He reportedly lives with a friend. Patient states that he first noticed his neck mass approximately 1-2 weeks ago. He recently opened and started draining a purulent colored drainage. He states that his voice is been hoarse. He's had reduced appetite, and poor oral intake. He's been more weak. He appears emaciated and cachectic. He is reportedly lost about 35 pounds in the last month. EMS was called, on arrival, the patient was found to be hypotensive. On the emergency room, the patient was fluid resuscitated with a total of 4.5 L normal saline bolus. A central line was placed by the ER physician and the right IJ. Patient was then started on vasopressors, in the form of norepinephrine which is infusing at 0.2 mcg/kg/m. Blood cultures have been drawn. Patient has been started on empiric antibiotics. Wound cultures will be taken. A CT of the neck demonstrated an irregular soft tissue density within the subglottic airway at the level of the larynx which significantly narrows the airway at this level and will use only a small residual passage. This mass is measured at 5.1 cm x 5.1 cm x 4.7 cm. On clinical examination, the patient's neck wound is draining a purulent drainage concerning for infection as well. Patient is currently lying in bed, on 2 L/m nasal cannula, in no acute distress. He is on 2 L/m nasal cannula. SpO2 is 97%. His voice is hoarse. No significant stridor. Patient was given 100 mg of Solu-Cortef. CBC on arrival shows leukocytosis of his count of 14.5, globin 15.4, hematocrit 43.6, platelets 334. BMP shows sodium 127, potassium 3.6, chloride 79, serum bicarbonate 36, BUN 55, creatinine 2.56, glucose 82. Lactic acid level was elevated at 2.5 times is now 1.7. Troponins mildly elevated at 0.064 and 0.073 respectively. NT proBNP is 5120. Chest x-ray did not show any pulmonary mass or congestion or cardiomegaly. No focal consolidation or evidence of pneumonia either. There is an implanted AICD/pacemaker. ECG shows a ventricular paced rhythm. Patient is currently afebrile. Blood pressure remains hypotensive, We'll likely have to add a second vasopressor. Patient does have indwelling urinary catheter, and urine appears concentrated. I saw and evaluated this patient in the emergency department. I also reviewed the CAT scan of the neck. There is significant compromise of the upper airway probably related to an abscess which is draining externally at this point in time. Diastasis tunneled exteriorly and the patient has a an open draining possible over the anterior neck area which is purulent and foul-smelling. The patient despite this is awake and alert. He is hypotensive and hemodynamically unstable and he was aggressively resuscitated with IV fluids in the is also on pressors. He has a raspy voice. Minimal end inspiratory stridor is also appreciated in the neck area. He has very poor dental condition. Is a chronic smoker and he is also a chronic alcohol drinker. CAT scan of the abdomen and pelvis was also done that showed moderate bilateral pleural effusions and ascites with mild anasarca as the patient admits to drinking a pint of liquor on a daily basis. Comorbid conditions include coronary artery disease with previous stenting of the LAD, cardiomyopathy with an ejection fraction of 20% with history of AICD placement, history of A. fib, hypertension, hyperlipidemia, prostate cancer, COPD, alcoholism, smoking, previous history of melanoma that has been resected from the face Review of Systems REVIEW OF SYSTEMS: CONSTITUTIONAL: Admits recent weight loss of approximately 35 pounds within the last month or so. Admits generalized fatigue and weakness. Denies any fevers. EYES: Denies change in vision. EARS, NOSE, MOUTH, THROAT: Denies headaches. Admits anterior neck pain associated with neck mass. Admits voice hoarseness. CARDIOVASCULAR: Denies chest pain, palpitations or syncopal episodes. RESPIRATORY: Denies shortness of breath, cough, congestion or hemoptysis. GASTROINTESTINAL: Denies abdominal pain, nausea and vomiting, or diarrhea . Admits anorexia and reduced oral intake. GENITOURINARY: Denies hematuria, denies infections. Admits urinary frequency. MUSKULOSKELETAL: Denies pain, denies swelling. INTEGUMENTARY: Denies rash, denies eczema. NEUROLOGICAL: Denies recent memory loss, no recent seizure activity. PSYCHIATRIC: Denies anxiety, denies depression. HEMATOLOGIC/LYMPHATIC: Denies anemia, denies enlarged lymph node Past Medical History Past Medical History: Atrial Fibrillation, Cancer, GERD/Reflux, Musculoskeletal Disorder Additional Past Medical History / Comment(s): PROSTATE CA, STATES HAS MULT. 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 Past Anesthesia/Blood Transfusion Reactions: No Reported Reaction Additional Past Anesthesia/Blood Transfusion Reaction / Comment(s): difficulty with ether Past Psychological History: Anxiety Past Drug Use History: Marijuana - Past Family History Mother Family Medical History: No Reported History, Vascular Disorder Additional Family Medical History / Comment(s): varicose veins Brother(s) Family Medical History: Vascular Disorder Additional Family Medical History / Comment(s): varicose veins Sister(s) Family Medical History: Vascular Disorder Additional Family Medical History / Comment(s): varicose veins Medications and Allergies Home Medications Medication Instructions Recorded Confirmed Type Omeprazole [PriLOSEC] 20 mg PO DAILY 12/19/13 03/10/23 History Aspirin [Adult Low Dose Aspirin EC] 81 mg PO DAILY 02/24/18 03/10/23 History Spironolactone [Aldactone] 25 mg PO DAILY 02/24/18 03/10/23 History lisinopriL [Zestril] 2.5 mg PO HS 02/24/18 03/10/23 History Atorvastatin [Lipitor] 80 mg PO HS #90 tab 03/01/18 03/10/23 Rx Digoxin [Lanoxin] 125 mcg PO DAILY 09/20/20 03/10/23 History Amiodarone [Cordarone] 200 mg PO BID 03/10/23 03/10/23 History Ascorbic Acid [Vitamin C] 1,000 mg PO DAILY 03/10/23 03/10/23 History Cholecalciferol [Vitamin D3 (25 25 mcg PO DAILY 03/10/23 03/10/23 History Mcg = 1000 Iu)] Metoprolol Succinate [Toprol XL] 200 mg PO BID 03/10/23 03/10/23 History Rivaroxaban [Xarelto] 20 mg PO HS 03/10/23 03/10/23 History Vitamin E (Dl,Tocopheryl Acet) 400 unit PO DAILY 03/10/23 03/10/23 History [Vitamin E (400 Iu = 180 mg)] Allergies Allergy/AdvReac Type Severity Reaction Status Date / Time No Known Allergies Allergy Verified 03/10/23 17:44 Physical Exam Vitals: Vital Signs Temp Pulse Resp BP Pulse Ox 03/11/23 01:00 71 16 69/48 97 03/11/23 00:29 70 03/11/23 00:13 70 03/10/23 20:09 78 16 73/40 94 L 03/10/23 18:18 70 18 88/62 99 03/10/23 16:33 98.5 F 61 14 73/39 93 L Intake and Output 03/10/23 03/10/23 03/11/23 14:59 22:59 06:59 Intake Total 5.673 Balance 5.673 Intake: Intake, IV Titration 5.673 Amount Norepinephrine 32 mg In 5.673 Sodium Chloride 0.9% 218 ml @ 0.03 MCG/KG/MIN 0. 734 mls/hr IV .Q24H [facility] Rx#:[id number] Other: Weight 52.163 kg GENERAL EXAM: Alert, 73-year-old white male cachectic and weak, fairly comfortable in no apparent distress. HEAD: Normocephalic and atraumatic EYES: Normal reaction of pupils, equal size. NOSE: Clear with pink turbinates. THROAT: There is very poor dentition. No erythema or exudates. NECK: There is an anterior soft tissue mass with purulent draining fluid. CHEST: No chest wall deformity. There is a soft tissue mass anterior midline. LUNGS: Equal air entry with no crackles, wheeze, rhonchi or dullness. On 2 L/m nasal cannula. SpO2 is 97%. No conversational dyspnea or accessory muscle use.. CVS: S1 and S2 normal with no audible murmur, regular rhythm. No extra heart sounds ABDOMEN: No hepatosplenomegaly, active bowel sounds, no guarding or rigidity. SPINE: No scoliosis or deformity SKIN: No rashes CENTRAL NERVOUS SYSTEM: No focal deficits, tone is normal in all 4 extremities. EXTREMITIES: There is no peripheral edema, clubbing, or cyanosis. Peripheral pulses are intact. Results - Laboratory Findings CBC and BMP: 03/11/23 06:04 03/11/23 05:55 PT/INR, D-dimer PT 17.4 sec (10.0-12.5) H 03/10/23 17:26 INR 1.7 (<1.2) H 03/10/23 17:26 Abnormal lab findings: Abnormal Labs 03/10/23 03/10/23 03/10/23 17:26 17:26 17:26 WBC 14.5 H Neutrophils # 10.8 H Monocytes # 1.3 H PT 17.4 H INR 1.7 H APTT 31.9 H Sodium 127 L Chloride 79 L Carbon Dioxide 36 H BUN 55 H Creatinine 2.56 H Plasma Lactic Acid Jeffrey Calcium 7.3 L AST 103 H ALT 67 H Troponin I C-Reactive Protein 5.1 H Total Protein 5.6 L Albumin 2.4 L Urine Protein Urine Ketones Ur Leukocyte Esterase Urine RBC Urine WBC Urine WBC Clumps Urine Bacteria Hyaline Casts Urine Mucus 03/10/23 03/10/23 03/10/23 17:26 17:26 23:47 WBC Neutrophils # Monocytes # PT INR APTT Sodium Chloride Carbon Dioxide BUN Creatinine Plasma Lactic Acid Jeffrey 2.5 H* Calcium AST ALT Troponin I 0.064 H* 0.073 H* C-Reactive Protein Total Protein Albumin Urine Protein Urine Ketones Ur Leukocyte Esterase Urine RBC Urine WBC Urine WBC Clumps Urine Bacteria Hyaline Casts Urine Mucus 03/11/23 01:07 WBC Neutrophils # Monocytes # PT INR APTT Sodium Chloride Carbon Dioxide BUN Creatinine Plasma Lactic Acid Jeffrey Calcium AST ALT Troponin I C-Reactive Protein Total Protein Albumin Urine Protein Trace H Urine Ketones 1+ H Ur Leukocyte Esterase Large H Urine RBC 8 H Urine WBC >182 H Urine WBC Clumps Many H Urine Bacteria Occasional H Hyaline Casts 66 H Urine Mucus Occasional H - Diagnostic Findings Chest x-ray: image reviewed Assessment and Plan Assessment: Neck mass/abscess draining exteriorly and acid tunneled and the patient has an open draining wound with purulent foul-smelling material coming out of the area over the anterior neck. There is some swelling of the neck anteriorly. The same time, CAT scan of the neck shows irregular soft tissue density in the subglottic area causing airway compromise and significant narrowing of the subglottic airway and there is a soft tissue density measuring approximately 5 cm in size. On examination, the patient has a raspy voice and has a faint inspiratory or end inspiratory stridor. sepsis and septic shock, refractory to fluid resuscitation, currently requiring vasopressors, currently on a combination of norepinephrine and vasopressin Cardiomyopathy with an ejection fraction less than 20% Proximal atrial fibrillation with previous cardioversion and the patient is currently V paced Acute kidney injury, related to hypotension and shock Possible UTI, awaiting cultures Hypovolemic hyponatremia, possibly related to poor oral intake Severe protein calorie malnutrition and cachexia Elevated troponins, possibly related to supply/demand mismatch and sepsis History of atrial fibrillation, normally anticoagulated on Xarelto History of implanted AICD/pacemaker, currently V-paced rhythm Troponin leak secondary to above History of hypertension History of hyperlipidemia History of prostate cancer status post prostatectomy Chronic ongoing tobacco dependence Alcoholism Ascites and diffuse anasarca Poor dental condition and multiple decayed teeth Poor medical follow-up and his last office evaluation of his primary care physician was more than a year ago. Plan: This patient is a critical narrowing of the upper airway, essentially related to a mass which is an inflammatory mass most likely an abscess. Possibility of residual tumor along with an infection cannot be completely ruled out. There is significant narrowing of the airway and some end inspiratory stridor. The patient will need anemia and ENT evaluation. Obviously transferring this patient to a tertiary care center with expertise in dealing with this type of infection is needed. The patient may need a tracheostomy tube for securing his airway and further intervention with incision and drainage and the rectal examination revealed laryngoscopy will be needed. patient is septic at this point in time and the patient is currently on IV fluids in addition to accommodation Unasyn and vancomycin Obtain cultures from the draining wound Obtain blood cultures Continue pressors and the patient is currently on norepinephrine and vasop ressin, was started norepinephrine to maintain a mean arterial pressure above 60 and continue vasopressin physiologic dose Hold diuretics Hold anticoagulants for now Cardiac rhythm is paced Triple-lumen catheter was established I recommend transferring this patient for an upper airway compromise. Thyroid to contact the primary care team. The patient will need an ICU bed with ENT consultation in pulmonary critical care consultation. Condition is critical at this point in time. We'll request our ENT physicians also evaluate the patient Past Medical History Past Medical History: Atrial Fibrillation, Cancer, GERD/Reflux, Musculoskeletal Disorder Additional Past Medical History / Comment(s): PROSTATE CA, STATES HAS MULT. 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 Past Anesthesia/Blood Transfusion Reactions: No Reported Reaction Additional Past Anesthesia/Blood Transfusion Reaction / Comment(s): difficulty with ether Past Psychological History: Anxiety Past Drug Use History: Marijuana - Past Family History Mother Family Medical History: No Reported History, Vascular Disorder Additional Family Medical History / Comment(s): varicose veins Brother(s) Family Medical History: Vascular Disorder Additional Family Medical History / Comment(s): varicose veins Sister(s) Family Medical History: Vascular Disorder Additional Family Medical History / Comment(s): varicose veins Medications and Allergies Home Medications Medication Instructions Recorded Confirmed Type Omeprazole [PriLOSEC] 20 mg PO DAILY 12/19/13 03/10/23 History Aspirin [Adult Low Dose Aspirin EC] 81 mg PO DAILY 02/24/18 03/10/23 History Spironolactone [Aldactone] 25 mg PO DAILY 02/24/18 03/10/23 History lisinopriL [Zestril] 2.5 mg PO HS 02/24/18 03/10/23 History Atorvastatin [Lipitor] 80 mg PO HS #90 tab 03/01/18 03/10/23 Rx Digoxin [Lanoxin] 125 mcg PO DAILY 09/20/20 03/10/23 History Amiodarone [Cordarone] 200 mg PO BID 03/10/23 03/10/23 History Ascorbic Acid [Vitamin C] 1,000 mg PO DAILY 03/10/23 03/10/23 History Cholecalciferol [Vitamin D3 (25 25 mcg PO DAILY 03/10/23 03/10/23 History Mcg = 1000 Iu)] Metoprolol Succinate [Toprol XL] 200 mg PO BID 03/10/23 03/10/23 History Rivaroxaban [Xarelto] 20 mg PO HS 03/10/23 03/10/23 History Vitamin E (Dl,Tocopheryl Acet) 400 unit PO DAILY 03/10/23 03/10/23 History [Vitamin E (400 Iu = 180 mg)] Allergies Allergy/AdvReac Type Severity Reaction Status Date / Time No Known Allergies Allergy Verified 03/10/23 17:44 Physical Exam Vitals: Vital Signs Temp Pulse Resp BP Pulse Ox 03/11/23 16:30 69 17 82/68 96 03/11/23 16:00 68 22 91/66 88 L 03/11/23 15:30 70 17 93/70 91 L 03/11/23 15:00 65 17 79/43 03/11/23 14:15 69 14 80/61 03/11/23 14:00 71 19 95/81 84 L 03/11/23 13:45 22 80/60 03/11/23 13:35 15 80/60 03/11/23 13:30 70 18 80/58 03/11/23 13:25 69 19 80/58 94 L 03/11/23 13:20 69 18 80/58 03/11/23 13:15 61 16 78/61 03/11/23 13:10 70 19 78/61 03/11/23 13:05 69 20 78/61 98 03/11/23 13:00 68 12 91 L 03/11/23 12:55 70 19 03/11/23 12:45 80/60 03/11/23 12:40 80/60 03/11/23 12:35 11 L 80/60 93 L 03/11/23 12:30 71 17 76/60 85 L 03/11/23 12:25 68 18 76/60 94 L 03/11/23 12:20 68 19 76/60 84 L 03/11/23 12:15 70 17 79/61 97 03/11/23 12:10 73 18 79/61 96 03/11/23 12:05 71 19 79/61 99 03/11/23 12:00 70 17 72/56 95 03/11/23 11:55 69 17 72/56 84 L 03/11/23 11:50 68 17 72/56 88 L 03/11/23 11:45 69 18 73/60 96 03/11/23 11:40 69 17 73/60 86 L 03/11/23 11:35 69 15 73/60 03/11/23 11:30 69 11 L 77/65 98 03/11/23 11:25 16 96 03/11/23 11:20 15 77/65 91 L 03/11/23 11:15 68 18 78/59 92 L 03/11/23 11:10 69 17 78/59 03/11/23 11:05 71 18 78/59 93 L 03/11/23 11:00 69 11 L 81/61 94 L 03/11/23 10:55 69 12 81/61 93 L 03/11/23 10:50 68 14 81/61 89 L 03/11/23 10:45 70 17 82/63 98 03/11/23 10:40 69 17 82/63 79 L 03/11/23 10:35 69 12 82/63 03/11/23 10:30 69 15 81/60 94 L 03/11/23 10:25 69 16 81/60 03/11/23 10:20 70 16 81/60 93 L 03/11/23 10:15 72 18 80/64 97 03/11/23 10:10 69 19 80/64 94 L 03/11/23 10:05 70 18 80/64 95 03/11/23 10:00 70 17 80/58 93 L 03/11/23 09:55 70 18 80/58 91 L 03/11/23 09:50 70 12 80/58 03/11/23 09:45 16 79/59 95 03/11/23 09:40 76 17 79/59 91 L 03/11/23 09:35 70 16 79/59 97 03/11/23 09:30 70 17 81/63 96 03/11/23 09:25 70 16 81/63 96 03/11/23 09:20 15 81/63 93 L 03/11/23 09:15 12 84/60 92 L 03/11/23 09:10 70 16 84/60 97 03/11/23 09:05 69 18 84/60 95 03/11/23 09:00 69 13 84/57 95 03/11/23 08:55 70 14 84/57 97 03/11/23 08:50 68 18 84/57 94 L 03/11/23 08:45 68 15 82/61 96 03/11/23 08:40 70 16 82/61 95 03/11/23 08:35 70 15 82/61 94 L 03/11/23 08:30 70 20 74/61 95 03/11/23 08:25 69 16 74/61 95 03/11/23 08:00 68 18 82/61 96 03/11/23 06:15 70 15 80/62 96 03/11/23 06:00 70 16 83/62 96 03/11/23 05:45 69 17 80/66 94 L 03/11/23 05:30 68 17 93/72 96 03/11/23 05:15 70 18 84/66 97 03/11/23 05:00 70 17 89/69 96 03/11/23 04:45 70 20 100/53 97 03/11/23 04:30 69 18 88/71 94 L 03/11/23 04:15 70 15 86/63 95 03/11/23 04:00 70 18 93/69 92 L 03/11/23 03:45 70 16 98/74 95 03/11/23 03:30 70 12 86/62 97 03/11/23 03:25 77 15 84/60 96 03/11/23 03:20 82 14 78/61 97 03/11/23 03:15 81 17 77/60 95 03/11/23 03:10 70 18 75/54 91 L 03/11/23 03:05 70 17 76/56 97 03/11/23 03:00 97.7 F 70 16 80/58 96 03/11/23 02:50 70 16 84/47 95 03/11/23 02:45 70 16 76/59 95 03/11/23 02:40 70 14 73/55 96 03/11/23 02:35 77 15 95/47 96 03/11/23 02:30 77 14 74/57 96 03/11/23 02:20 70 16 72/55 96 03/11/23 02:00 70 16 70/52 96 03/11/23 01:40 70 15 67/53 96 03/11/23 01:31 69 14 68/54 96 03/11/23 01:00 71 16 69/48 97 03/11/23 00:29 70 03/11/23 00:13 70 03/10/23 20:09 78 16 73/40 94 L 03/10/23 18:18 70 18 88/62 99 Intake and Output 03/11/23 03/11/23 03/11/23 06:59 14:59 22:59 Intake Total 14.624 20.783 Balance 14.624 20.783 Intake: Intake, IV Titration 14.624 20.783 Amount Norepinephrine 32 mg In 5.673 20.783 Sodium Chloride 0.9% 218 ml @ 0.03 MCG/KG/MIN 0. 734 mls/hr IV .Q24H [facility] Rx#:[id number] Vasopressin 60 unit In 8.951 Sodium Chloride 0.9% 150 ml @ 0.03 UNITS/MIN 4.59 mls/hr IV .Q24H [facility] Rx#: [id number] Results - Laboratory Findings CBC and BMP: 03/11/23 06:04 03/11/23 05:55 PT/INR, D-dimer PT 17.4 sec (10.0-12.5) H 03/10/23 17:26 INR 1.7 (<1.2) H 03/10/23 17:26 Abnormal lab findings: Abnormal Labs 03/10/23 03/10/23 03/10/23 17:26 17:26 17:26 WBC 14.5 H Neutrophils # 10.8 H Monocytes # 1.3 H PT 17.4 H INR 1.7 H APTT 31.9 H Sodium 127 L Potassium Chloride 79 L Carbon Dioxide 36 H BUN 55 H Creatinine 2.56 H Glucose Plasma Lactic Acid Jeffrey Calcium 7.3 L AST 103 H ALT 67 H Troponin I C-Reactive Protein 5.1 H Total Protein 5.6 L Albumin 2.4 L Urine Protein Urine Ketones Ur Leukocyte Esterase Urine RBC Urine WBC Urine WBC Clumps Urine Bacteria Hyaline Casts Urine Mucus 03/10/23 03/10/23 03/10/23 17:26 17:26 23:47 WBC Neutrophils # Monocytes # PT INR APTT Sodium Potassium Chloride Carbon Dioxide BUN Creatinine Glucose Plasma Lactic Acid Jeffrey 2.5 H* Calcium AST ALT Troponin I 0.064 H* 0.073 H* C-Reactive Protein Total Protein Albumin Urine Protein Urine Ketones Ur Leukocyte Esterase Urine RBC Urine WBC Urine WBC Clumps Urine Bacteria Hyaline Casts Urine Mucus 03/11/23 03/11/23 03/11/23 01:07 05:55 06:04 WBC 17.6 H Neutrophils # 14.2 H Monocytes # 2.0 H PT INR APTT Sodium 132 L Potassium 3.3 L Chloride 93 L Carbon Dioxide BUN 45 H Creatinine 2.13 H Glucose 62 L Plasma Lactic Acid Jeffrey Calcium 6.6 L AST 97 H ALT 61 H Troponin I C-Reactive Protein Total Protein 5.0 L Albumin 2.1 L Urine Protein Trace H Urine Ketones 1+ H Ur Leukocyte Esterase Large H Urine RBC 8 H Urine WBC >182 H Urine WBC Clumps Many H Urine Bacteria Occasional H Hyaline Casts 66 H Urine Mucus Occasional H 03/11/23 06:04 WBC Neutrophils # Monocytes # PT INR APTT Sodium Potassium Chloride Carbon Dioxide BUN Creatinine Glucose Plasma Lactic Acid Jeffrey Calcium AST ALT Troponin I 0.074 H* C-Reactive Protein Total Protein Albumin Urine Protein Urine Ketones Ur Leukocyte Esterase Urine RBC Urine WBC Urine WBC Clumps Urine Bacteria Hyaline Casts Urine Mucus
[2023-03-11] MEDS ORDERED: FAMOTIDINE 20 MG/2 ML VIAL IV SCH (21:00)
[2023-03-11] MEDS ORDERED: ATORVASTATIN 80 MG TAB PO SCH (21:00)
--- NOTE | 2023-03-11 21:55 | P.CONS ---
History of Present Illness - Reason for Consult Consult date: 03/11/23 Neck Mass - Chief Complaint Weakness - History of Present Illness Mr. Mccarty is a 73-year-old gentleman with a past medical history significant for cigarette smoking, alcohol abuse, atrial fibrillation on Xarelto who presented to the ED with increased weakness and dyspnea. He developed a neck ma ss over the past 1 to 2 weeks, that opened on the bottom portion of the right neck with purulent drainage. He has had increased hoarseness of his voice with dyspnea superimposed on chronic hoarseness. Given his progressive weakness, he was brought to the ED for additional management. In the ED, he was noted to be hypotensive that was persistent despite a total of 4-1/2 L of IV fluids. CT of the neck noted irregular soft tissue density in the subglottic airway at the level of the larynx causing significant narrowing measuring 5.1 x 5.1 x 4.7 cm. Labs were notable for sodium 127, creatinine 2.56, BUN 55 WBC 14.5 (ANC 10.8, absolute monocyte count 1.3), hemoglobin 15.4, platelets 334. In addition to starting vasopressors, he was given Solu-Cortef 100 mg IV, famotidine 20 mg IV, and Unasyn and was admitted for additional management. Review of Systems 14 point review of systems was conducted with pertinent positives and negatives as noted per HPI Past Medical History Past Medical History: Atrial Fibrillation, Cancer, GERD/Reflux, Musculoskeletal Disorder Additional Past Medical History / Comment(s): PROSTATE CA, STATES HAS MULT. 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 Past Anesthesia/Blood Transfusion Reactions: No Reported Reaction Additional Past Anesthesia/Blood Transfusion Reaction / Comm: difficulty with ether Past Psychological History: Anxiety Past Drug Use History: Marijuana - Past Family History Mother Family Medical History: No Reported History, Vascular Disorder Additional Family Medical History / Comment(s): varicose veins Brother(s) Family Medical History: Vascular Disorder Additional Family Medical History / Comment(s): varicose veins Sister(s) Family Medical History: Vascular Disorder Additional Family Medical History / Comment(s): varicose veins Medications and Allergies Home Medications Medication Instructions Recorded Confirmed Type Omeprazole [PriLOSEC] 20 mg PO DAILY 12/19/13 03/10/23 History Aspirin [Adult Low Dose Aspirin EC] 81 mg PO DAILY 02/24/18 03/10/23 History Spironolactone [Aldactone] 25 mg PO DAILY 02/24/18 03/10/23 History lisinopriL [Zestril] 2.5 mg PO HS 02/24/18 03/10/23 History Atorvastatin [Lipitor] 80 mg PO HS #90 tab 03/01/18 03/10/23 Rx Digoxin [Lanoxin] 125 mcg PO DAILY 09/20/20 03/10/23 History Amiodarone [Cordarone] 200 mg PO BID 03/10/23 03/10/23 History Ascorbic Acid [Vitamin C] 1,000 mg PO DAILY 03/10/23 03/10/23 History Cholecalciferol [Vitamin D3 (25 25 mcg PO DAILY 03/10/23 03/10/23 History Mcg = 1000 Iu)] Metoprolol Succinate [Toprol XL] 200 mg PO BID 03/10/23 03/10/23 History Rivaroxaban [Xarelto] 20 mg PO HS 03/10/23 03/10/23 History Vitamin E (Dl,Tocopheryl Acet) 400 unit PO DAILY 03/10/23 03/10/23 History [Vitamin E (400 Iu = 180 mg)] Allergies Allergy/AdvReac Type Severity Reaction Status Date / Time No Known Allergies Allergy Verified 03/10/23 17:44 Physical Exam Vitals: Vital Signs Temp Pulse Resp BP Pulse Ox 03/11/23 19:30 23 94/72 95 03/11/23 19:00 69 20 95/68 94 L 03/11/23 18:30 19 88/66 03/11/23 18:00 68 16 86/64 03/11/23 17:30 70 20 88/66 95 03/11/23 17:00 69 21 82/64 90 L 03/11/23 16:30 69 17 82/68 96 03/11/23 16:00 68 22 91/66 88 L 03/11/23 15:30 70 17 93/70 91 L 03/11/23 15:00 65 17 79/43 03/11/23 14:15 69 14 80/61 03/11/23 14:00 71 19 95/81 84 L 03/11/23 13:45 22 80/60 03/11/23 13:35 15 80/60 03/11/23 13:30 70 18 80/58 03/11/23 13:25 69 19 80/58 94 L 03/11/23 13:20 69 18 80/58 03/11/23 13:15 61 16 78/61 03/11/23 13:10 70 19 78/61 03/11/23 13:05 69 20 78/61 98 03/11/23 13:00 68 12 91 L 03/11/23 12:55 70 19 03/11/23 12:45 80/60 03/11/23 12:40 80/60 03/11/23 12:35 11 L 80/60 93 L 03/11/23 12:30 71 17 76/60 85 L 03/11/23 12:25 68 18 76/60 94 L 03/11/23 12:20 68 19 76/60 84 L 03/11/23 12:15 70 17 79/61 97 03/11/23 12:10 73 18 79/61 96 03/11/23 12:05 71 19 79/61 99 03/11/23 12:00 70 17 72/56 95 03/11/23 11:55 69 17 72/56 84 L 03/11/23 11:50 68 17 72/56 88 L 03/11/23 11:45 69 18 73/60 96 03/11/23 11:40 69 17 73/60 86 L 03/11/23 11:35 69 15 73/60 03/11/23 11:30 69 11 L 77/65 98 03/11/23 11:25 16 96 03/11/23 11:20 15 77/65 91 L 03/11/23 11:15 68 18 78/59 92 L 03/11/23 11:10 69 17 78/59 03/11/23 11:05 71 18 78/59 93 L 03/11/23 11:00 69 11 L 81/61 94 L 03/11/23 10:55 69 12 81/61 93 L 03/11/23 10:50 68 14 81/61 89 L 03/11/23 10:45 70 17 82/63 98 03/11/23 10:40 69 17 82/63 79 L 03/11/23 10:35 69 12 82/63 03/11/23 10:30 69 15 81/60 94 L 03/11/23 10:25 69 16 81/60 03/11/23 10:20 70 16 81/60 93 L 03/11/23 10:15 72 18 80/64 97 03/11/23 10:10 69 19 80/64 94 L 03/11/23 10:05 70 18 80/64 95 03/11/23 10:00 70 17 80/58 93 L 03/11/23 09:55 70 18 80/58 91 L 03/11/23 09:50 70 12 80/58 03/11/23 09:45 16 79/59 95 03/11/23 09:40 76 17 79/59 91 L 03/11/23 09:35 70 16 79/59 97 03/11/23 09:30 70 17 81/63 96 03/11/23 09:25 70 16 81/63 96 03/11/23 09:20 15 81/63 93 L 03/11/23 09:15 12 84/60 92 L 03/11/23 09:10 70 16 84/60 97 03/11/23 09:05 69 18 84/60 95 03/11/23 09:00 69 13 84/57 95 03/11/23 08:55 70 14 84/57 97 03/11/23 08:50 68 18 84/57 94 L 03/11/23 08:45 68 15 82/61 96 03/11/23 08:40 70 16 82/61 95 03/11/23 08:35 70 15 82/61 94 L 03/11/23 08:30 70 20 74/61 95 03/11/23 08:25 69 16 74/61 95 03/11/23 08:00 68 18 82/61 96 03/11/23 06:15 70 15 80/62 96 03/11/23 06:00 70 16 83/62 96 03/11/23 05:45 69 17 80/66 94 L 03/11/23 05:30 68 17 93/72 96 03/11/23 05:15 70 18 84/66 97 03/11/23 05:00 70 17 89/69 96 03/11/23 04:45 70 20 100/53 97 03/11/23 04:30 69 18 88/71 94 L 03/11/23 04:15 70 15 86/63 95 03/11/23 04:00 70 18 93/69 92 L 03/11/23 03:45 70 16 98/74 95 03/11/23 03:30 70 12 86/62 97 03/11/23 03:25 77 15 84/60 96 03/11/23 03:20 82 14 78/61 97 03/11/23 03:15 81 17 77/60 95 03/11/23 03:10 70 18 75/54 91 L 03/11/23 03:05 70 17 76/56 97 03/11/23 03:00 97.7 F 70 16 80/58 96 03/11/23 02:50 70 16 84/47 95 03/11/23 02:45 70 16 76/59 95 03/11/23 02:40 70 14 73/55 96 03/11/23 02:35 77 15 95/47 96 03/11/23 02:30 77 14 74/57 96 03/11/23 02:20 70 16 72/55 96 03/11/23 02:00 70 16 70/52 96 03/11/23 01:40 70 15 67/53 96 03/11/23 01:31 69 14 68/54 96 03/11/23 01:00 71 16 69/48 97 03/11/23 00:29 70 03/11/23 00:13 70 Intake and Output 03/11/23 03/11/23 03/11/23 06:59 14:59 22:59 Intake Total 14.624 20.783 Balance 14.624 20.783 Intake: Intake, IV Titration 14.624 20.783 Amount Norepinephrine 32 mg In 5.673 20.783 Sodium Chloride 0.9% 218 ml @ 0.03 MCG/KG/MIN 0. 734 mls/hr IV .Q24H [facility] Rx#:[id number] Vasopressin 60 unit In 8.951 Sodium Chloride 0.9% 150 ml @ 0.03 UNITS/MIN 4.59 mls/hr IV .Q24H [facility] Rx#: [id number] - Constitutional Cachectic General appearance: disheveled - EENT Purulent discharge from the open wound in the right lower neck that is foul- smelling - Respiratory Stridor noted in the airways bilaterally - Cardiovascular Rhythm: irregularly irregular - Gastrointestinal General gastrointestinal: no distended, soft - Integumentary Integumentary: pale - Neurologic Neurologic: CNII-XII intact Results CBC & Chem 7: 03/11/23 06:04 03/11/23 05:55 Labs: Abnormal Lab Results - Last 24 Hours (Table) 03/10/23 03/11/23 03/11/23 Range/Units 23:47 01:07 05:55 WBC (3.8-10.6) k/uL Neutrophils # (1.3-7.7) k/uL Monocytes # (0-1.0) k/uL Sodium 132 L (137-145) mmol/L Potassium 3.3 L (3.5-5.1) mmol/L Chloride 93 L (98-107) mmol/L BUN 45 H (9-20) mg/dL Creatinine 2.13 H (0.66-1.25) mg/dL Glucose 62 L (74-99) mg/dL Calcium 6.6 L (8.4-10.2) mg/dL AST 97 H (17-59) U/L ALT 61 H (4-49) U/L Troponin I 0.073 H* (0.000-0.034) ng/mL Total Protein 5.0 L (6.3-8.2) g/dL Albumin 2.1 L (3.5-5.0) g/dL Urine Protein Trace H (Negative) Urine Ketones 1+ H (Negative) Ur Leukocyte Esterase Large H (Negative) Urine RBC 8 H (0-5) /hpf Urine WBC >182 H (0-5) /hpf Urine WBC Clumps Many H (None) /hpf Urine Bacteria Occasional H (None) /hpf Hyaline Casts 66 H (0-2) /lpf Urine Mucus Occasional H (None) /hpf 03/11/23 03/11/23 Range/Units 06:04 06:04 WBC 17.6 H (3.8-10.6) k/uL Neutrophils # 14.2 H (1.3-7.7) k/uL Monocytes # 2.0 H (0-1.0) k/uL Sodium (137-145) mmol/L Potassium (3.5-5.1) mmol/L Chloride (98-107) mmol/L BUN (9-20) mg/dL Creatinine (0.66-1.25) mg/dL Glucose (74-99) mg/dL Calcium (8.4-10.2) mg/dL AST (17-59) U/L ALT (4-49) U/L Troponin I 0.074 H* (0.000-0.034) ng/mL Total Protein (6.3-8.2) g/dL Albumin (3.5-5.0) g/dL Urine Protein (Negative) Urine Ketones (Negative) Ur Leukocyte Esterase (Negative) Urine RBC (0-5) /hpf Urine WBC (0-5) /hpf Urine WBC Clumps (None) /hpf Urine Bacteria (None) /hpf Hyaline Casts (0-2) /lpf Urine Mucus (None) /hpf Microbiology - Last 24 Hours (Table) 03/11/23 01:20 Gram Stain - Preliminary Neck Assessment and Plan (1) Neck abscess Current Visit: Yes Status: Acute Code(s): L02.11 - CUTANEOUS ABSCESS OF NECK SNOMED Code(s): 5312902 Plan: #Neck mass -Presenting with weakness and stridor in the setting of neck abscess that is now open wound with purulent drainage -CT neck noted irregular subglottic mass measuring 5.1 by 5 x 1 x 4.7 cm resulting in near complete obstruction of the airway -In addition, he is having septic shock requiring vasopressors and antibiotics -He was given IV Solu-Cortef and famotidine given the airway obstruction -From an oncology perspective, it is unclear if the neck lesion represents malignancy or complication of infection -In either event, he would need stabilization of his airway through ENT intervention, likely tracheostomy -Following stabilization of his airway, additional evaluation can be performed to assess whether this is infectious or malignant in etiology -With regards to stabilization of his airway, he may need to be transferred to a tertiary center so this can be performed prior to additional management of the subglottic mass -Continue antibiotics and vasopressors per primary and pulmonary teams Sana Aguilar MD
--- NOTE | 2023-03-11 22:18 | P.GSCN ---
History of Present Illness Consult date: 03/11/23 History of present illness: Patient seen and evaluated. He has trouble speaking. He reports troubles with swallowing ongoing for over 1 month. He reports sore throat that has progressed. Poor dentition noted. He has spontaneous drainage. CT reveiwed. Findings consistent with abscess involving posterior pharynx and neck. Neck with sanguinopurulent drainage. Recommend ENT for management of abscess. Past Medical History Past Medical History: Atrial Fibrillation, Cancer, GERD/Reflux, Musculoskeletal Disorder Additional Past Medical History / Comment(s): PROSTATE CA, STATES HAS MULT. 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 Past Anesthesia/Blood Transfusion Reactions: No Reported Reaction Additional Past Anesthesia/Blood Transfusion Reaction / Comm: difficulty with ether Past Psychological History: Anxiety Past Drug Use History: Marijuana - Past Family History Mother Family Medical History: No Reported History, Vascular Disorder Additional Family Medical History / Comment(s): varicose veins Brother(s) Family Medical History: Vascular Disorder Additional Family Medical History / Comment(s): varicose veins Sister(s) Family Medical History: Vascular Disorder Additional Family Medical History / Comment(s): varicose veins Medications and Allergies Home Medications Medication Instructions Recorded Confirmed Type Omeprazole [PriLOSEC] 20 mg PO DAILY 12/19/13 03/10/23 History Aspirin [Adult Low Dose Aspirin EC] 81 mg PO DAILY 02/24/18 03/10/23 History Spironolactone [Aldactone] 25 mg PO DAILY 02/24/18 03/10/23 History lisinopriL [Zestril] 2.5 mg PO HS 02/24/18 03/10/23 History Atorvastatin [Lipitor] 80 mg PO HS #90 tab 03/01/18 03/10/23 Rx Digoxin [Lanoxin] 125 mcg PO DAILY 09/20/20 03/10/23 History Amiodarone [Cordarone] 200 mg PO BID 03/10/23 03/10/23 History Ascorbic Acid [Vitamin C] 1,000 mg PO DAILY 03/10/23 03/10/23 History Cholecalciferol [Vitamin D3 (25 25 mcg PO DAILY 03/10/23 03/10/23 History Mcg = 1000 Iu)] Metoprolol Succinate [Toprol XL] 200 mg PO BID 03/10/23 03/10/23 History Rivaroxaban [Xarelto] 20 mg PO HS 03/10/23 03/10/23 History Vitamin E (Dl,Tocopheryl Acet) 400 unit PO DAILY 03/10/23 03/10/23 History [Vitamin E (400 Iu = 180 mg)] Allergies Allergy/AdvReac Type Severity Reaction Status Date / Time No Known Allergies Allergy Verified 03/10/23 17:44 Surgical - Exam Vital Signs Temp Pulse Resp BP Pulse Ox 98.5 F 61 14 73/39 93 L 03/10/23 16:33 03/10/23 16:33 03/10/23 16:33 03/10/23 16:33 03/10/23 16:33 Results - Labs 03/11/23 06:04 03/11/23 05:55 Abnormal Lab Results - Last 24 Hours (Table) 03/10/23 03/11/23 03/11/23 Range/Units 23:47 01:07 05:55 WBC (3.8-10.6) k/uL Neutrophils # (1.3-7.7) k/uL Monocytes # (0-1.0) k/uL Sodium 132 L (137-145) mmol/L Potassium 3.3 L (3.5-5.1) mmol/L Chloride 93 L (98-107) mmol/L BUN 45 H (9-20) mg/dL Creatinine 2.13 H (0.66-1.25) mg/dL Glucose 62 L (74-99) mg/dL Calcium 6.6 L (8.4-10.2) mg/dL AST 97 H (17-59) U/L ALT 61 H (4-49) U/L Troponin I 0.073 H* (0.000-0.034) ng/mL Total Protein 5.0 L (6.3-8.2) g/dL Albumin 2.1 L (3.5-5.0) g/dL Urine Protein Trace H (Negative) Urine Ketones 1+ H (Negative) Ur Leukocyte Esterase Large H (Negative) Urine RBC 8 H (0-5) /hpf Urine WBC >182 H (0-5) /hpf Urine WBC Clumps Many H (None) /hpf Urine Bacteria Occasional H (None) /hpf Hyaline Casts 66 H (0-2) /lpf Urine Mucus Occasional H (None) /hpf 03/11/23 03/11/23 Range/Units 06:04 06:04 WBC 17.6 H (3.8-10.6) k/uL Neutrophils # 14.2 H (1.3-7.7) k/uL Monocytes # 2.0 H (0-1.0) k/uL Sodium (137-145) mmol/L Potassium (3.5-5.1) mmol/L Chloride (98-107) mmol/L BUN (9-20) mg/dL Creatinine (0.66-1.25) mg/dL Glucose (74-99) mg/dL Calcium (8.4-10.2) mg/dL AST (17-59) U/L ALT (4-49) U/L Troponin I 0.074 H* (0.000-0.034) ng/mL Total Protein (6.3-8.2) g/dL Albumin (3.5-5.0) g/dL Urine Protein (Negative) Urine Ketones (Negative) Ur Leukocyte Esterase (Negative) Urine RBC (0-5) /hpf Urine WBC (0-5) /hpf Urine WBC Clumps (None) /hpf Urine Bacteria (None) /hpf Hyaline Casts (0-2) /lpf Urine Mucus (None) /hpf Microbiology - Last 24 Hours (Table) 03/11/23 01:20 Gram Stain - Preliminary Neck Diabetes panel 03/11/23 Range/Units 05:55 Sodium 132 L (137-145) mmol/L Potassium 3.3 L (3.5-5.1) mmol/L Chloride 93 L (98-107) mmol/L Carbon Dioxide 24 (22-30) mmol/L BUN 45 H (9-20) mg/dL Creatinine 2.13 H (0.66-1.25) mg/dL Glucose 62 L (74-99) mg/dL Calcium 6.6 L (8.4-10.2) mg/dL AST 97 H (17-59) U/L ALT 61 H (4-49) U/L Alkaline Phosphatase 69 (38-126) U/L Total Protein 5.0 L (6.3-8.2) g/dL Albumin 2.1 L (3.5-5.0) g/dL Thyroid panel 03/11/23 Range/Units 05:55 TSH 2.020 (0.465-4.680) mIU/L Calcium panel 03/11/23 Range/Units 05:55 Calcium 6.6 L (8.4-10.2) mg/dL Phosphorus 4.3 (2.5-4.5) mg/dL Albumin 2.1 L (3.5-5.0) g/dL Pituitary panel 03/11/23 03/11/23 Range/Units 05:55 05:55 Sodium 132 L (137-145) mmol/L Potassium 3.3 L (3.5-5.1) mmol/L Chloride 93 L (98-107) mmol/L Carbon Dioxide 24 (22-30) mmol/L BUN 45 H (9-20) mg/dL Creatinine 2.13 H (0.66-1.25) mg/dL Glucose 62 L (74-99) mg/dL Calcium 6.6 L (8.4-10.2) mg/dL TSH 2.020 (0.465-4.680) mIU/L Adrenal panel 03/11/23 Range/Units 05:55 Sodium 132 L (137-145) mmol/L Potassium 3.3 L (3.5-5.1) mmol/L Chloride 93 L (98-107) mmol/L Carbon Dioxide 24 (22-30) mmol/L BUN 45 H (9-20) mg/dL Creatinine 2.13 H (0.66-1.25) mg/dL Glucose 62 L (74-99) mg/dL Calcium 6.6 L (8.4-10.2) mg/dL Total Bilirubin 0.8 (0.2-1.3) mg/dL AST 97 H (17-59) U/L ALT 61 H (4-49) U/L Alkaline Phosphatase 69 (38-126) U/L Total Protein 5.0 L (6.3-8.2) g/dL Albumin 2.1 L (3.5-5.0) g/dL
--- NOTE | 2023-03-11 22:48 | P.CONS ---
History of Present Illness - Reason for Consult Consult date: 03/11/23 - History of Present Illness Patient is a 73-year-old male with a past medical history significant for prostate cancer reflux atrial fibrillation patient presenting to the hospital for evaluation of weakness unable to ambulate and mass to the right side of the neck patient mention has been dealing with a raspy voice almost 2 years about 2 weeks ago he noticed to have increasing swelling to the right side of the neck that has got increased in size in the last week did have some purulent drainage from it patient did have some dull aching pain mild to moderate intensity to the area patient denies having any difficulty swallowing no difficulty breathing chest pain shortness of breath or cough no abdominal guy n or diarrhea with the symptoms the patient presented to hospital on arrival to the ER the patient was afebrile patient was not tachycardic patient was hypertensive and mildly hypoxic on supplemental oxygen patient did have a white count of 14.5 which is up to 17.6 creatinine is 2.13 troponin is elevated patient did have a CT of the soft tissue of the neck subglottic airway at the level of the larynx abnormal irregular soft tissue density with significantly narrows the airway soft tissue density extending from anterior skin surface of the neck just right of the midline patient was started on Unasyn received a dose of vancomycin infectious disease was consulted for further management of antib iotic therapy Past Medical History Past Medical History: Atrial Fibrillation, Cancer, GERD/Reflux, Musculoskeletal Disorder Additional Past Medical History / Comment(s): PROSTATE CA, STATES HAS MULT. 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 Past Anesthesia/Blood Transfusion Reactions: No Reported Reaction Additional Past Anesthesia/Blood Transfusion Reaction / Comm: difficulty with ether Past Psychological History: Anxiety Past Drug Use History: Marijuana - Past Family History Mother Family Medical History: No Reported History, Vascular Disorder Additional Family Medical History / Comment(s): varicose veins Brother(s) Family Medical History: Vascular Disorder Additional Family Medical History / Comment(s): varicose veins Sister(s) Family Medical History: Vascular Disorder Additional Family Medical History / Comment(s): varicose veins Medications and Allergies Home Medications Medication Instructions Recorded Confirmed Type Omeprazole [PriLOSEC] 20 mg PO DAILY 12/19/13 03/10/23 History Aspirin [Adult Low Dose Aspirin EC] 81 mg PO DAILY 02/24/18 03/10/23 History Spironolactone [Aldactone] 25 mg PO DAILY 02/24/18 03/10/23 History lisinopriL [Zestril] 2.5 mg PO HS 02/24/18 03/10/23 History Atorvastatin [Lipitor] 80 mg PO HS #90 tab 03/01/18 03/10/23 Rx Digoxin [Lanoxin] 125 mcg PO DAILY 09/20/20 03/10/23 History Amiodarone [Cordarone] 200 mg PO BID 03/10/23 03/10/23 History Ascorbic Acid [Vitamin C] 1,000 mg PO DAILY 03/10/23 03/10/23 History Cholecalciferol [Vitamin D3 (25 25 mcg PO DAILY 03/10/23 03/10/23 History Mcg = 1000 Iu)] Metoprolol Succinate [Toprol XL] 200 mg PO BID 03/10/23 03/10/23 History Rivaroxaban [Xarelto] 20 mg PO HS 03/10/23 03/10/23 History Vitamin E (Dl,Tocopheryl Acet) 400 unit PO DAILY 03/10/23 03/10/23 History [Vitamin E (400 Iu = 180 mg)] Allergies Allergy/AdvReac Type Severity Reaction Status Date / Time No Known Allergies Allergy Verified 03/10/23 17:44 Physical Exam Vitals: Vital Signs Temp Pulse Resp BP Pulse Ox 03/11/23 12:30 71 17 76/60 85 L 03/11/23 12:25 68 18 76/60 94 L 03/11/23 12:20 68 19 76/60 84 L 03/11/23 12:15 70 17 79/61 97 03/11/23 12:10 73 18 79/61 96 03/11/23 12:05 71 19 79/61 99 03/11/23 12:00 70 17 72/56 95 03/11/23 11:55 69 17 72/56 84 L 03/11/23 11:50 68 17 72/56 88 L 03/11/23 11:45 69 18 73/60 96 03/11/23 11:40 69 17 73/60 86 L 03/11/23 11:35 69 15 73/60 03/11/23 11:30 69 11 L 77/65 98 03/11/23 11:25 16 96 03/11/23 11:20 15 77/65 91 L 03/11/23 11:15 68 18 78/59 92 L 03/11/23 11:10 69 17 78/59 03/11/23 11:05 71 18 78/59 93 L 03/11/23 11:00 69 11 L 81/61 94 L 03/11/23 10:55 69 12 81/61 93 L 03/11/23 10:50 68 14 81/61 89 L 03/11/23 10:45 70 17 82/63 98 03/11/23 10:40 69 17 82/63 79 L 03/11/23 10:35 69 12 82/63 03/11/23 10:30 69 15 81/60 94 L 03/11/23 10:25 69 16 81/60 03/11/23 10:20 70 16 81/60 93 L 03/11/23 10:15 72 18 80/64 97 03/11/23 10:10 69 19 80/64 94 L 03/11/23 10:05 70 18 80/64 95 03/11/23 10:00 70 17 80/58 93 L 03/11/23 09:55 70 18 80/58 91 L 03/11/23 09:50 70 12 80/58 03/11/23 09:45 16 79/59 95 03/11/23 09:40 76 17 79/59 91 L 03/11/23 09:35 70 16 79/59 97 03/11/23 09:30 70 17 81/63 96 03/11/23 09:25 70 16 81/63 96 03/11/23 09:20 15 81/63 93 L 03/11/23 09:15 12 84/60 92 L 03/11/23 09:10 70 16 84/60 97 03/11/23 09:05 69 18 84/60 95 03/11/23 09:00 69 13 84/57 95 03/11/23 08:55 70 14 84/57 97 03/11/23 08:50 68 18 84/57 94 L 03/11/23 08:45 68 15 82/61 96 03/11/23 08:40 70 16 82/61 95 03/11/23 08:35 70 15 82/61 94 L 03/11/23 08:30 70 20 74/61 95 03/11/23 08:25 69 16 74/61 95 03/11/23 08:00 68 18 82/61 96 03/11/23 06:15 70 15 80/62 96 03/11/23 06:00 70 16 83/62 96 03/11/23 05:45 69 17 80/66 94 L 03/11/23 05:30 68 17 93/72 96 03/11/23 05:15 70 18 84/66 97 03/11/23 05:00 70 17 89/69 96 03/11/23 04:45 70 20 100/53 97 03/11/23 04:30 69 18 88/71 94 L 03/11/23 04:15 70 15 86/63 95 03/11/23 04:00 70 18 93/69 92 L 03/11/23 03:45 70 16 98/74 95 03/11/23 03:30 70 12 86/62 97 03/11/23 03:25 77 15 84/60 96 03/11/23 03:20 82 14 78/61 97 03/11/23 03:15 81 17 77/60 95 03/11/23 03:10 70 18 75/54 91 L 03/11/23 03:05 70 17 76/56 97 03/11/23 03:00 97.7 F 70 16 80/58 96 03/11/23 02:50 70 16 84/47 95 03/11/23 02:45 70 16 76/59 95 03/11/23 02:40 70 14 73/55 96 03/11/23 02:35 77 15 95/47 96 03/11/23 02:30 77 14 74/57 96 03/11/23 02:20 70 16 72/55 96 03/11/23 02:00 70 16 70/52 96 03/11/23 01:40 70 15 67/53 96 03/11/23 01:31 69 14 68/54 96 03/11/23 01:00 71 16 69/48 97 03/11/23 00:29 70 03/11/23 00:13 70 03/10/23 20:09 78 16 73/40 94 L 03/10/23 18:18 70 18 88/62 99 03/10/23 16:33 98.5 F 61 14 73/39 93 L Intake and Output 03/10/23 03/11/23 03/11/23 22:59 06:59 14:59 Intake Total 14.624 20.783 Balance 14.624 20.783 Intake: Intake, IV Titration 14.624 20.783 Amount Norepinephrine 32 mg In 5.673 20.783 Sodium Chloride 0.9% 218 ml @ 0.03 MCG/KG/MIN 0. 734 mls/hr IV .Q24H [facility] Rx#:[id number] Vasopressin 60 unit In 8.951 Sodium Chloride 0.9% 150 ml @ 0.03 UNITS/MIN 4.59 mls/hr IV .Q24H [facility] Rx#: [id number] Other: Weight 52.163 kg Results CBC & Chem 7: 03/11/23 06:04 03/11/23 05:55 Labs: Abnormal Lab Results - Last 24 Hours (Table) 03/10/23 03/10/23 03/10/23 Range/Units 17:26 17:26 17:26 WBC 14.5 H (3.8-10.6) k/uL Neutrophils # 10.8 H (1.3-7.7) k/uL Monocytes # 1.3 H (0-1.0) k/uL PT 17.4 H (10.0-12.5) sec INR 1.7 H (<1.2) APTT 31.9 H (22.0-30.0) sec Sodium 127 L (137-145) mmol/L Potassium (3.5-5.1) mmol/L Chloride 79 L (98-107) mmol/L Carbon Dioxide 36 H (22-30) mmol/L BUN 55 H (9-20) mg/dL Creatinine 2.56 H (0.66-1.25) mg/dL Glucose (74-99) mg/dL Plasma Lactic Acid Jeffrey (0.7-2.0) mmol/L Calcium 7.3 L (8.4-10.2) mg/dL AST 103 H (17-59) U/L ALT 67 H (4-49) U/L Troponin I (0.000-0.034) ng/mL C-Reactive Protein 5.1 H (<1.0) mg/dL Total Protein 5.6 L (6.3-8.2) g/dL Albumin 2.4 L (3.5-5.0) g/dL Urine Protein (Negative) Urine Ketones (Negative) Ur Leukocyte Esterase (Negative) Urine RBC (0-5) /hpf Urine WBC (0-5) /hpf Urine WBC Clumps (None) /hpf Urine Bacteria (None) /hpf Hyaline Casts (0-2) /lpf Urine Mucus (None) /hpf 03/10/23 03/10/23 03/10/23 Range/Units 17:26 17:26 23:47 WBC (3.8-10.6) k/uL Neutrophils # (1.3-7.7) k/uL Monocytes # (0-1.0) k/uL PT (10.0-12.5) sec INR (<1.2) APTT (22.0-30.0) sec Sodium (137-145) mmol/L Potassium (3.5-5.1) mmol/L Chloride (98-107) mmol/L Carbon Dioxide (22-30) mmol/L BUN (9-20) mg/dL Creatinine (0.66-1.25) mg/dL Glucose (74-99) mg/dL Plasma Lactic Acid Jeffrey 2.5 H* (0.7-2.0) mmol/L Calcium (8.4-10.2) mg/dL AST (17-59) U/L ALT (4-49) U/L Troponin I 0.064 H* 0.073 H* (0.000-0.034) ng/mL C-Reactive Protein (<1.0) mg/dL Total Protein (6.3-8.2) g/dL Albumin (3.5-5.0) g/dL Urine Protein (Negative) Urine Ketones (Negative) Ur Leukocyte Esterase (Negative) Urine RBC (0-5) /hpf Urine WBC (0-5) /hpf Urine WBC Clumps (None) /hpf Urine Bacteria (None) /hpf Hyaline Casts (0-2) /lpf Urine Mucus (None) /hpf 03/11/23 03/11/23 03/11/23 Range/Units 01:07 05:55 06:04 WBC 17.6 H (3.8-10.6) k/uL Neutrophils # 14.2 H (1.3-7.7) k/uL Monocytes # 2.0 H (0-1.0) k/uL PT (10.0-12.5) sec INR (<1.2) APTT (22.0-30.0) sec Sodium 132 L (137-145) mmol/L Potassium 3.3 L (3.5-5.1) mmol/L Chloride 93 L (98-107) mmol/L Carbon Dioxide (22-30) mmol/L BUN 45 H (9-20) mg/dL Creatinine 2.13 H (0.66-1.25) mg/dL Glucose 62 L (74-99) mg/dL Plasma Lactic Acid Jeffrey (0.7-2.0) mmol/L Calcium 6.6 L (8.4-10.2) mg/dL AST 97 H (17-59) U/L ALT 61 H (4-49) U/L Troponin I (0.000-0.034) ng/mL C-Reactive Protein (<1.0) mg/dL Total Protein 5.0 L (6.3-8.2) g/dL Albumin 2.1 L (3.5-5.0) g/dL Urine Protein Trace H (Negative) Urine Ketones 1+ H (Negative) Ur Leukocyte Esterase Large H (Negative) Urine RBC 8 H (0-5) /hpf Urine WBC >182 H (0-5) /hpf Urine WBC Clumps Many H (None) /hpf Urine Bacteria Occasional H (None) /hpf Hyaline Casts 66 H (0-2) /lpf Urine Mucus Occasional H (None) /hpf 03/11/23 Range/Units 06:04 WBC (3.8-10.6) k/uL Neutrophils # (1.3-7.7) k/uL Monocytes # (0-1.0) k/uL PT (10.0-12.5) sec INR (<1.2) APTT (22.0-30.0) sec Sodium (137-145) mmol/L Potassium (3.5-5.1) mmol/L Chloride (98-107) mmol/L Carbon Dioxide (22-30) mmol/L BUN (9-20) mg/dL Creatinine (0.66-1.25) mg/dL Glucose (74-99) mg/dL Plasma Lactic Acid Jeffrey (0.7-2.0) mmol/L Calcium (8.4-10.2) mg/dL AST (17-59) U/L ALT (4-49) U/L Troponin I 0.074 H* (0.000-0.034) ng/mL C-Reactive Protein (<1.0) mg/dL Total Protein (6.3-8.2) g/dL Albumin (3.5-5.0) g/dL Urine Protein (Negative) Urine Ketones (Negative) Ur Leukocyte Esterase (Negative) Urine RBC (0-5) /hpf Urine WBC (0-5) /hpf Urine WBC Clumps (None) /hpf Urine Bacteria (None) /hpf Hyaline Casts (0-2) /lpf Urine Mucus (None) /hpf Assessment and Plan Plan: 1patient was in the hospital with increasing swelling to the right side of the neck that subsequently started to drain with evidence of muscle on the CT concerning for abscess versus possible malignancy however keeping in mind purulent drainage abscess will be the primary diagnosis unless proven otherwise and likely from gram-positive skin sneha gram-negative not entirely excluded 2-patient with renal insufficiency high risk of nephrotoxicity from vancomycin 3-we will continue patient on Unasyn dose has been adjusted to the kidney function and add daptomycin to cover for the gram-positive while waiting for the culture to finalize 4-surgical evaluation for drainage and biopsy We will follow on clinical condition and cultures to further adjust medication if needed Thank you for this consultation we will follow the patient along with you Dictation was produced using [email or web address] dictation software. please excuse any grammatical, word or spelling errors. Time with Patient: Greater than 30
[2023-03-12] MEDS ORDERED: NOREPINEPHRINE 32 MG in SODIUM CHLORIDE 0.9% 218 ML IV ONE (00:28)
[2023-03-12] MEDS: HEPARIN SODIUM,PORCINE 5,000 UNIT/ML 1 ML VIAL SQ SCH ×4 (00:32→23:23)
[2023-03-12] MEDS: SODIUM CHLORIDE 0.9% 1,000 ML IV SCH ×2 (00:45→06:02)
[2023-03-12] MEDS: VASOPRESSIN 60 UNIT in SODIUM CHLORIDE 0.9% 150 ML IV SCH ×2 (06:24→16:00)
[2023-03-12 07:11] LABS: Glucose,Whole Blood 60 mg/dL (70-110)
[2023-03-12] MEDS ORDERED: DEXTROSE 50% SYRINGE 50 ML IVP PRN ×2 (07:35)
[2023-03-12 07:41] LABS: Glucose,Whole Blood 54 mg/dL (70-110)
[2023-03-12 07:44] LABS: ALT 61 U/L (4-49); AST 92 U/L (17-59); African American GFR (CKD) 40 (>60 ml/min/1.73 sqM); Albumin 2.4 g/dL (3.5-5.0); Alkaline Phosphatase 70 U/L (38-126); Anion Gap 21 mmol/L; Blood Urea Nitrogen 42 mg/dL (9-20); Calcium 7.3 mg/dL (8.4-10.2); Carbon Dioxide 16 mmol/L (22-30); Chloride 98 mmol/L (98-107); Glucose 65 mg/dL (74-99); Magnesium 1.9 mg/dL (1.6-2.3); Non-African American GFR(CKD) 34 (>60 ml/min/1.73 sqM); Potassium 3.6 mmol/L (3.5-5.1); Sodium 135 mmol/L (137-145); Total Bilirubin 0.7 mg/dL (0.2-1.3); Total Protein 5.4 g/dL (6.3-8.2)
[2023-03-12 07:46] LABS: Basophils % (A) 0 %; Eosinophils % (A) 0 %; HCT 41.5 % (39.0-53.0); HGB 13.8 gm/dL (13.0-17.5); Lymphocytes # (A) 3.8 k/uL (1.0-4.8); Lymphocytes % (A) 20 %; MCH 34.5 pg (25.0-35.0); MCHC 33.3 g/dL (31.0-37.0); MCV 103.3 fL (80.0-100.0); Macrocytosis Slight; Mean Platelet Volume 8.8; Monocytes # (A) 1.2 k/uL (0-1.0); Monocytes % (A) 6 %; Neutrophils # (A) 13.7 k/uL (1.3-7.7); Neutrophils % (A) 72 %; Platelet Count 313 k/uL (150-450); RBC 4.01 m/uL (4.30-5.90); RDW 11.9 % (11.5-15.5)
[2023-03-12 07:50] LABS: Vancomycin,Random 10.8 ug/mL
[2023-03-12 08:00] LABS: Glucose,Whole Blood 50 mg/dL (70-110)
[2023-03-12 08:25] LABS: Glucose,Whole Blood 77 mg/dL (70-110)
[2023-03-12] MEDS ORDERED: ASCORBIC ACID 500 MG TAB PO SCH (09:00)
[2023-03-12] MEDS ORDERED: CHOLECALCIFEROL 25 MCG (1000 IU) TABLET PO SCH (09:00)
[2023-03-12] MEDS ORDERED: ASPIRIN 81 MG PO SCH (09:00)
[2023-03-12] MEDS: FAMOTIDINE 20 MG/2 ML VIAL IV SCH (09:17)
[2023-03-12] MEDS: AMPICILLIN-SULBACTAM 3 GM in SODIUM CHLORIDE 0.9% 100 ML IVPB SCH ×2 (09:17→19:52)
[2023-03-12] MEDS ORDERED: DEXTROSE 5% IN WATER 1,000 ML with SODIUM BICARB (1 MEQ/ML) 150 ML IV ONE (09:55)
--- NOTE | 2023-03-12 09:57 | P.PN ---
Subjective Progress Note Date: 03/12/23 I am seeing this patient in consultation today 03/11/2023 in the emergency room after he presented with chief complaint of draining neck wound. He was weak and found to have low blood pressures on EMS arrival. Patient is a 73-year-old white male with past medical history significant for atrial fibrillation anticoagulated on Xarelto, AICD implantation, hypertension, hyperlipidemia, prostate cancer status post prostatectomy, and is a chronic ongoing tobacco smoker. His primary care provider is Dr. Azevedo. He reportedly lives with a friend. Patient states that he first noticed his neck mass approximately 1-2 weeks ago. He recently opened and started draining a purulent colored drainage. He states that his voice is been hoarse. He's had reduced appetite, and poor oral intake. He's been more weak. He appears emaciated and cachectic. He is reportedly lost about 35 pounds in the last month. EMS was called, on arrival, the patient was found to be hypotensive. On the emergency room, the patient was fluid resuscitated with a total of 4.5 L normal saline bolus. A central line was placed by the ER physician and the right IJ. Patient was then started on vasopressors, in the form of norepinephrine which is infusing at 0.2 mcg/kg/m. Blood cultures have been drawn. Patient has been started on empiric antibiotics. Wound cultures will be taken. A CT of the neck demonstrated an ir regular soft tissue density within the subglottic airway at the level of the larynx which significantly narrows the airway at this level and will use only a small residual passage. This mass is measured at 5.1 cm x 5.1 cm x 4.7 cm. On clinical examination, the patient's neck wound is draining a purulent drainage concerning for infection as well. Patient is currently lying in bed, on 2 L/m nasal cannula, in no acute distress. He is on 2 L/m nasal cannula. SpO2 is 97%. His voice is hoarse. No significant stridor. Patient was given 100 mg of Solu-Cortef. CBC on arrival shows leukocytosis of his count of 14.5, globin 15.4, hematocrit 43.6, platelets 334. BMP shows sodium 127, potassium 3.6, chloride 79, serum bicarbonate 36, BUN 55, creatinine 2.56, glucose 82. Lactic acid level was elevated at 2.5 times is now 1.7. Troponins mildly elevated at 0.064 and 0.073 respectively. NT proBNP is 5120. Chest x-ray did not show any pulmonary mass or congestion or cardiomegaly. No focal consolidation or evidence of pneumonia either. There is an implanted AICD/pacemaker. ECG shows a ventricular paced rhythm. Patient is currently afebrile. Blood pressure remains hypotensive, We'll likely have to add a second vasopressor. Patient does have indwelling urinary catheter, and urine appears concentrated. I saw and evaluated this patient in the emergency department. I also reviewed the CAT scan of the neck. There is significant compromise of the upper airway probably related to an abscess which is draining externally at this point in time. Diastasis tunneled exteriorly and the patient has a an open draining possible over the anterior neck area which is purulent and foul-smelling. The patient despite this is awake and alert. He is hypotensive and hemodynamically unstable and he was aggressively resuscitated with IV fluids in the is also on pressors. He has a raspy voice. Minimal end inspiratory stridor is also appreciated in the neck area. He has very poor dental condition. Is a chronic smoker and he is also a chronic alcohol drinker. CAT scan of the abdomen and pelvis was also done that showed moderate bilateral pleural effusions and ascites with mild anas arca as the patient admits to drinking a pint of liquor on a daily basis. Comorbid conditions include coronary artery disease with previous stenting of the LAD, cardiomyopathy with an ejection fraction of 20% with history of AICD placement, history of A. fib, hypertension, hyperlipidemia, prostate cancer, COPD, alcoholism, smoking, previous history of melanoma that has been resected from the face On today's evaluation of 03/12/2023, the patient continues to have a raspy voice. He does have a draining abscess over the neck with purulent drainage as noted. Cultures are still pending for now. He remains on ABX. He is awake and alert and communicating. He does have some minimal end inspiratory stridor. Nevertheless, he does not have any significant respiratory distress at this point in time. No altered mentation. He remains hypotensive and the patient remains on a combination of norepinephrine running at 0.18 microvascular kilogram per minute and he is also on physiologic dose of vasopressin. He is a triple-lumen catheter in his right IJ. In terms of his cardiac rhythm, he is in atrial fibrillation with a controlled rate. His previous echocardiogram has revealed an ejection fraction of 20% and the patient has an AICD in place. Follow-up blood work today that showed a sodium level of 135, potassium of 3.6, chloride is 19 with a bicarb of 16. BUN is at 42 with a creatinine of 1.9. The patient has a white cell count of 19 with a hemoglobin 15.6 and a platelet count of 313. Is currently on oxygen at 4 L/m nasal cannula. His antibiotic coverage including combination of Unasyn and daptomycin. ENT declined the consultation Objective - Vital Signs Vital signs: Vital Signs Temp 97.9 F 03/12/23 08:36 Pulse 79 03/12/23 09:00 Resp 28 H 03/12/23 09:00 BP 94/69 03/12/23 09:00 Pulse Ox 98 03/12/23 09:00 FiO2 Intake & Output 03/11/23 03/12/23 03/12/23 18:59 06:59 18:59 Intake Total 20.783 38.021 Balance 20.783 38.021 Intake: Intake, IV Titration 20.783 38.021 Amount Norepinephrine 32 mg In 20.783 Sodium Chloride 0.9% 218 ml @ 0.03 MCG/KG/MIN 0. 734 mls/hr IV .Q24H [facility] Rx#:[id number] Vasopressin 60 unit In 38.021 Sodium Chloride 0.9% 150 ml @ 0.03 UNITS/MIN 4.59 mls/hr IV .Q24H [facility] Rx#: [id number] - Exam GENERAL EXAM: Alert, 73-year-old white male cachectic and weak, fairly comfortable in no apparent distress. HEAD: Normocephalic and atraumatic EYES: Normal reaction of pupils, equal size. NOSE: Clear with pink turbinates. THROAT: There is very poor dentition. No erythema or exudates. NECK: There is an anterior soft tissue mass with purulent draining fluid. CHEST: No chest wall deformity. There is a soft tissue mass anterior midline. LUNGS: Equal air entry with no crackles, wheeze, rhonchi or dullness. On 2 L/m nasal cannula. SpO2 is 97%. No conversational dyspnea or accessory muscle use.. CVS: S1 and S2 normal with no audible murmur, regular rhythm. No extra heart sounds ABDOMEN: No hepatosplenomegaly, active bowel sounds, no guarding or rigidity. SPINE: No scoliosis or deformity SKIN: No rashes CENTRAL NERVOUS SYSTEM: No focal deficits, tone is normal in all 4 extremities. EXTREMITIES: There is no peripheral edema, clubbing, or cyanosis. Peripheral pulses are intact. - Labs CBC & Chem 7: 03/12/23 06:39 03/12/23 06:39 Labs: Abnormal Lab Results - Last 24 Hours (Table) 03/12/23 03/12/23 03/12/23 Range/Units 06:39 06:39 07:08 WBC 19.0 H (3.8-10.6) k/uL RBC 4.01 L (4.30-5.90) m/uL MCV 103.3 H (80.0-100.0) fL Neutrophils # 13.7 H (1.3-7.7) k/uL Monocytes # 1.2 H (0-1.0) k/uL Sodium 135 L (137-145) mmol/L Carbon Dioxide 16 L (22-30) mmol/L BUN 42 H (9-20) mg/dL Creatinine 1.92 H (0.66-1.25) mg/dL Glucose 65 L (74-99) mg/dL POC Glucose (mg/dL) 60 L (70-110) mg/dL Calcium 7.3 L (8.4-10.2) mg/dL AST 92 H (17-59) U/L ALT 61 H (4-49) U/L Total Protein 5.4 L (6.3-8.2) g/dL Albumin 2.4 L (3.5-5.0) g/dL 03/12/23 03/12/23 Range/Units 07:30 07:49 WBC (3.8-10.6) k/uL RBC (4.30-5.90) m/uL MCV (80.0-100.0) fL Neutrophils # (1.3-7.7) k/uL Monocytes # (0-1.0) k/uL Sodium (137-145) mmol/L Carbon Dioxide (22-30) mmol/L BUN (9-20) mg/dL Creatinine (0.66-1.25) mg/dL Glucose (74-99) mg/dL POC Glucose (mg/dL) 54 L 50 L (70-110) mg/dL Calcium (8.4-10.2) mg/dL AST (17-59) U/L ALT (4-49) U/L Total Protein (6.3-8.2) g/dL Albumin (3.5-5.0) g/dL Microbiology - Last 24 Hours (Table) 03/10/23 19:30 Blood Culture - Preliminary Blood 03/10/23 17:26 Blood Culture - Preliminary Blood 03/11/23 01:20 Gram Stain - Preliminary Neck Assessment and Plan Plan: Neck mass/abscess draining exteriorly and acid tunneled and the patient has an open draining wound with purulent foul-smelling material coming out of the area over the anterior neck. There is some swelling of the neck anteriorly. The same time, CAT scan of the neck shows irregular soft tissue density in the subglottic area causing airway compromise and significant narrowing of the subglottic airway and there is a soft tissue density measuring approximately 5 cm in size. On examination, the patient has a raspy voice and has a faint inspiratory or end inspiratory stridor. The patient is currently admitted to the intensive care unit. No interval change since yesterday. The abscess is still draining exteriorly with purulent drainage noted. Cultures are still pending. No interval worsening in the stridor. sepsis and septic shock, refractory to fluid resuscitation, currently requiring vasopressors, currently on a combination of norepinephrine and vasopressin, consider also a component of cardiogenic shock and the patient has severe cardiomyopathy. Echocardiogram is to be repeated today. Cardiomyopathy with an ejection fraction less than 20% Proximal atrial fibrillation with previous cardioversion and the patient is currently V paced Acute kidney injury, related to hypotension and shock, creatinine is slightly improved compared to yesterday. Non-anion gap metabolic acidosis Possible UTI, awaiting cultures Hypovolemic hyponatremia, possibly related to poor oral intake Severe protein calorie malnutrition and cachexia Elevated troponins, possibly related to supply/demand mismatch and sepsis History of atrial fibrillation, normally anticoagulated on Xarelto History of implanted AICD/pacemaker, currently V-paced rhythm Troponin leak secondary to above History of hypertension History of hyperlipidemia History of prostate cancer status post prostatectomy Chronic ongoing tobacco dependence Alcoholism Ascites and diffuse anasarca Poor dental condition and multiple decayed teeth Poor medical follow-up and his last office evaluation of his primary care physician was more than a year ago. Plan: The patient failed swallow and the patient will be kept nothing by mouth for now We'll change IV fluids to bicarb infusion at the rate of 75 mL an hour Continue Unasyn and daptomycin Awaiting cultures Continue pressors and wean off the norepinephrine to maintain mean arterial pressure above 60 This patient is a critical narrowing of the upper airway, essentially related to a mass which is an inflammatory mass most likely an abscess. Possibility of residual tumor along with an infection cannot be completely ruled out. There is significant narrowing of the airway and some end inspiratory stridor. The patient will need immediate ENT evaluation. Obviously transferring this patient to a tertiary care center with expertise in dealing with this type of infection is needed. The patient may need a tracheostomy tube for securing his airway and further intervention with incision and drainage and subsequent direct examination revealed laryngoscopy will be needed. patient is septic at this point in time and the patient is currently on IV fluids in addition to accommodation Unasyn and daptomycin Obtain cultures from the draining wound, pending Obtain blood cultures, pending Continue pressors and the patient is currently on norepinephrine and vasopressin, was started norepinephrine to maintain a mean arterial pressure above 60 and continue vasopressin physiologic dose Hold diuretics Hold anticoagulants for now Cardiac rhythm is atrial fibrillation, controlled rate Triple-lumen catheter was established I recommend transferring this patient for an upper airway compromise. Thyroid to contact the primary care team. The patient will need an ICU bed with ENT consultation in pulmonary critical care consultation. Initiated the transfer to [facility] Condition is critical at this point in time. Time with Patient: Greater than 30
[2023-03-12] MEDS ORDERED: POTASSIUM CHLORIDE ER 20 MEQ TAB.ER PO STA (10:35)
--- NOTE | 2023-03-12 10:48 | P.PN ---
Subjective Patient is seen in follow-up for acute kidney injury. Renal function improving. Sitting up in bed. Denies chest pain or shortness of breath. On Levophed and vasopressin. Has received 4.5 L of normal saline and is also receiving maintenance IV fluids. Denies chest pain or shortness of breath. Vital signs are stable. On vasopressor support. General: No acute distress. HEENT Neck dressing noted. No drainage.: LUNGS: No audible rhonchi or wheezes. HEART: Rate and Rhythm are regular. ABDOMEN: Nontender. EXTREMITITES: No edema. Objective - Vital Signs Vital signs: Vital Signs Temp 97.9 F 03/12/23 08:36 Pulse 74 03/12/23 10:15 Resp 20 03/12/23 10:15 BP 74/63 03/12/23 10:15 Pulse Ox 92 L 03/12/23 10:15 FiO2 Intake & Output 03/11/23 03/12/23 03/12/23 18:59 06:59 18:59 Intake Total 20.783 38.021 360 Output Total 85 Balance 20.783 38.021 275 Intake: IV 360 Ampicillin-Sulbactam 3 gm 100 In Sodium Chloride 0.9% 100 ml @ 200 mls/hr IVPB Q12H [facility] Rx#:[id number] Sodium Chloride 0.9% 1, 260 000 ml @ 130 mls/hr IV . Q7H42M [facility] Rx#:[id number] Intake, IV Titration 20.783 38.021 Amount Norepinephrine 32 mg In 20.783 Sodium Chloride 0.9% 218 ml @ 0.03 MCG/KG/MIN 0. 734 mls/hr IV .Q24H [facility] Rx#:[id number] Vasopressin 60 unit In 38.021 Sodium Chloride 0.9% 150 ml @ 0.03 UNITS/MIN 4.59 mls/hr IV .Q24H [facility] Rx#: [id number] Output: Urine 85 Other: # Bowel Movements 1 - Labs CBC & Chem 7: 03/12/23 06:39 03/12/23 06:39 Labs: Abnormal Lab Results - Last 24 Hours (Table) 03/12/23 03/12/23 03/12/23 Range/Units 06:39 06:39 07:08 WBC 19.0 H (3.8-10.6) k/uL RBC 4.01 L (4.30-5.90) m/uL MCV 103.3 H (80.0-100.0) fL Neutrophils # 13.7 H (1.3-7.7) k/uL Monocytes # 1.2 H (0-1.0) k/uL Sodium 135 L (137-145) mmol/L Carbon Dioxide 16 L (22-30) mmol/L BUN 42 H (9-20) mg/dL Creatinine 1.92 H (0.66-1.25) mg/dL Glucose 65 L (74-99) mg/dL POC Glucose (mg/dL) 60 L (70-110) mg/dL Calcium 7.3 L (8.4-10.2) mg/dL AST 92 H (17-59) U/L ALT 61 H (4-49) U/L Total Protein 5.4 L (6.3-8.2) g/dL Albumin 2.4 L (3.5-5.0) g/dL 03/12/23 03/12/23 Range/Units 07:30 07:49 WBC (3.8-10.6) k/uL RBC (4.30-5.90) m/uL MCV (80.0-100.0) fL Neutrophils # (1.3-7.7) k/uL Monocytes # (0-1.0) k/uL Sodium (137-145) mmol/L Carbon Dioxide (22-30) mmol/L BUN (9-20) mg/dL Creatinine (0.66-1.25) mg/dL Glucose (74-99) mg/dL POC Glucose (mg/dL) 54 L 50 L (70-110) mg/dL Calcium (8.4-10.2) mg/dL AST (17-59) U/L ALT (4-49) U/L Total Protein (6.3-8.2) g/dL Albumin (3.5-5.0) g/dL Microbiology - Last 24 Hours (Table) 03/10/23 19:30 Blood Culture - Preliminary Blood 03/10/23 17:26 Blood Culture - Preliminary Blood 03/11/23 01:20 Gram Stain - Preliminary Neck Assessment and Plan Plan: Assessment: 1. Acute kidney injury secondary to ATN secondary to septic shock. Creatinine was 2.56 on admission and is 1.92 today. Baseline creatinine from 2020 0.7-0.8. No hydronephrosis noted on CAT scan. 2. Metabolic acidosis secondary to acute kidney injury and IV fluids. 3. Septic shock secondary to Neck mass/abscess on IV antibiotics. On vasopressors. Neck mass possibly malignant. 4. Chronic systolic CHF with ejection fraction of less than 20% status post AICD. 5. Hypokalemia from poor intake. Replaced. 6. Hypovolemic hyponatremia improved with IV fluids. Plan: Agree with bicarb drip. Replace potassium. Avoid nephrotoxins. Continue to monitor renal function and urine output. Monitor volume status closely.
[2023-03-12] MEDS ORDERED: POTASSIUM CHLORIDE 20 MEQ in WATER FOR INJECTION 1 100ML.BAG IVPB STA (11:15)
--- NOTE | 2023-03-12 11:19 | P.PN ---
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 Patient reports unintentional 30+ pound weight loss and 3+ months. Additionally, ENT consulted however not available at institution. Patient is pending transfer to outside facility for further ENT management. Otherwise, patient failed swallow study and unable to eat due to disease. Reports difficulty eating textured foods at home. ROS: No reports of nausea and vomiting. No bowel movements. No fevers or chills. No new chest pain. PHYSICAL EXAM: VITAL SIGNS: Reviewed CONSTITUTIONAL: Well developed and in no acute distress. EYES: Conjuctivae without sclera icterus. Extraocular movements grossly intact. HEAD, EARS, NOSE, THROAT: Poor dentition with swelling of the posterior oropharynx, neck. RESPIRATORY: Non-labored respirations and equal bilateral excursions. CARDIOVASCULAR: Palpable 2+ radial pulses. ABDOMEN: Nontender. MUSCULOSKELETAL: No gross deformity of the lower extremities noted. No clubbi ng. No cyanosis. SKIN: Good skin turgor. Well perfused. NEUROLOGIC: Cranial nerves II through XII grossly intact. No focal or lateralizing signs. PSYCH: Appropriate affect. Alert and oriented to person, place and time. CLINICAL LABS: Reviewed. WBC over 15,000 ASSESSMENT: 1. Oral pharyngeal mass with dysphagia 2. Moderate to severe protein malnutrition PLAN: 1. He has failed swallow study. Endoscopy for placement of feeding to describe which the patient was amenable to proceed. Objective - Vital Signs Vital signs: Vital Signs Temp 97.9 F 03/12/23 08:36 Pulse 74 03/12/23 10:15 Resp 20 03/12/23 10:15 BP 74/63 03/12/23 10:15 Pulse Ox 92 L 03/12/23 10:15 FiO2 Intake & Output 03/11/23 03/12/23 03/12/23 18:59 06:59 18:59 Intake Total 20.783 38.021 360 Output Total 85 Balance 20.783 38.021 275 Intake: IV 360 Ampicillin-Sulbactam 3 gm 100 In Sodium Chloride 0.9% 100 ml @ 200 mls/hr IVPB Q12H [facility] Rx#:[id number] Sodium Chloride 0.9% 1, 260 000 ml @ 130 mls/hr IV . Q7H42M [facility] Rx#:[id number] Intake, IV Titration 20.783 38.021 Amount Norepinephrine 32 mg In 20.783 Sodium Chloride 0.9% 218 ml @ 0.03 MCG/KG/MIN 0. 734 mls/hr IV .Q24H [facility] Rx#:[id number] Vasopressin 60 unit In 38.021 Sodium Chloride 0.9% 150 ml @ 0.03 UNITS/MIN 4.59 mls/hr IV .Q24H [facility] Rx#: [id number] Output: Urine 85 Other: Voiding Method Indwelling Catheter # Bowel Movements 1 - Labs CBC & Chem 7: 03/12/23 06:39 03/12/23 06:39 Labs: Abnormal Lab Results - Last 24 Hours (Table) 03/12/23 03/12/23 03/12/23 Range/Units 06:39 06:39 07:08 WBC 19.0 H (3.8-10.6) k/uL RBC 4.01 L (4.30-5.90) m/uL MCV 103.3 H (80.0-100.0) fL Neutrophils # 13.7 H (1.3-7.7) k/uL Monocytes # 1.2 H (0-1.0) k/uL Sodium 135 L (137-145) mmol/L Carbon Dioxide 16 L (22-30) mmol/L BUN 42 H (9-20) mg/dL Creatinine 1.92 H (0.66-1.25) mg/dL Glucose 65 L (74-99) mg/dL POC Glucose (mg/dL) 60 L (70-110) mg/dL Calcium 7.3 L (8.4-10.2) mg/dL AST 92 H (17-59) U/L ALT 61 H (4-49) U/L Total Protein 5.4 L (6.3-8.2) g/dL Albumin 2.4 L (3.5-5.0) g/dL 03/12/23 03/12/23 Range/Units 07:30 07:49 WBC (3.8-10.6) k/uL RBC (4.30-5.90) m/uL MCV (80.0-100.0) fL Neutrophils # (1.3-7.7) k/uL Monocytes # (0-1.0) k/uL Sodium (137-145) mmol/L Carbon Dioxide (22-30) mmol/L BUN (9-20) mg/dL Creatinine (0.66-1.25) mg/dL Glucose (74-99) mg/dL POC Glucose (mg/dL) 54 L 50 L (70-110) mg/dL Calcium (8.4-10.2) mg/dL AST (17-59) U/L ALT (4-49) U/L Total Protein (6.3-8.2) g/dL Albumin (3.5-5.0) g/dL Microbiology - Last 24 Hours (Table) 03/10/23 19:30 Blood Culture - Preliminary Blood 03/10/23 17:26 Blood Culture - Preliminary Blood 03/11/23 01:20 Gram Stain - Preliminary Neck
[2023-03-12 11:34] LABS: Glucose,Whole Blood 131 mg/dL (70-110)
[2023-03-12 11:58] VITALS: BMI 16.5
--- NOTE | 2023-03-12 13:53 | PN ---
PROGRESS NOTE SUBJECTIVE: This is a 73-year-old gentleman who was admitted to hospital with a neck mass and we were consulted for elevated troponin. He has known CAD, prior angioplasty, cardiomyopathy with an AICD. He is feeling better today, free of cardiac symptoms. He is hypotensive, requiring pressors and is also on antibiotics. Troponin elevation seems to be related to renal failure. OBJECTIVE: GENERAL: Comfortable at rest. VITAL SIGNS: Stable. CHEST: Reveals diminished air entry at the bases. HEART: Reveals first and second heart sounds, systolic murmur at the apex. ABDOMEN: Soft. EXTREMITIES: Did not reveal any edema. Peripheral pulses are felt. ASSESSMENT AND PLAN: Troponin elevation secondary to renal failure. We will see the patient on an as-needed basis at this time. MMODL / IJN: [id number] /
--- NOTE | 2023-03-12 14:32 | P.PN ---
Progress Note - Text Progress Note Date: 03/12/23 Case discussed with tool and die engineer. Patient being transferred to tertiary care center. We'll cancel EGD with PEG tube placement due to complexity of airway and care
--- NOTE | 2023-03-12 16:23 | P.CONS ---
History of Present Illness - Reason for Consult Consult date: 03/12/23 larynx mass Requesting physician: Sana Aguilar - Chief Complaint weakness, dehydration - History of Present Illness The patient is a 73-year-old male with a significant history of tobacco and alcohol use. He presented to the emergency room on March 10 secondary to a d raining neck wound, and was found to be in septic shock. Imaging revealed a possible underlying larynx mass. Prior to his admission, the patient reports that for the past one to 2 months he developed a hoarse voice and decreased appetite. The patient states he was still able to eat soft foods, but he was having a sore throat at times. In the past week, he noticed a swelling along the anterior neck. She states that this area opened and began draining in the past few days. He reports the drainage appeared purulent. He denied having fevers or chills prior to this. When he presented to the ER on March 10. A CT of the neck revealed irregular thickening at the level of the larynx suspicious for neoplasm measuring at least 5 x 5 cm. This lesion possibly extends to the skin surface just right of midline. There was no clear adenopathy noted. The patient was started on pressors secondary to being in septic shock. He is also been started on antibiotics out of concern for underlying infection. His breathing appears stable, despite a narrowed airway on imaging. At this time, the patient is in the ICU sitting up in bed. He reports no significant pain. Review of Systems Constitutional: Denies chills, Denies fever Eyes: denies blurred vision Ears, nose, mouth and throat: Reports as per HPI Cardiovascular: Denies chest pain Respiratory: Denies cough Musculoskeletal: Reports muscle weakness Integumentary: Denies rash Psychiatric: Denies anxiety, Denies confusion Past Medical History Past Medical History: Atrial Fibrillation, Cancer, GERD/Reflux, Musculoskeletal Disorder Additional Past Medical History / Comment(s): PROSTATE CA, STATES HAS MULT. 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 Past Anesthesia/Blood Transfusion Reactions: No Reported Reaction Additional Past Anesthesia/Blood Transfusion Reaction / Comm: difficulty with ether Past Psychological History: Anxiety Past Drug Use History: Marijuana - Past Family History Mother Family Medical History: No Reported History, Vascular Disorder Additional Family Medical History / Comment(s): varicose veins Brother(s) Family Medical History: Vascular Disorder Additional Family Medical History / Comment(s): varicose veins Sister(s) Family Medical History: Vascular Disorder Additional Family Medical History / Comment(s): varicose veins Medications and Allergies Home Medications Medication Instructions Recorded Confirmed Type Omeprazole [PriLOSEC] 20 mg PO DAILY 12/19/13 03/10/23 History Aspirin [Adult Low Dose Aspirin EC] 81 mg PO DAILY 02/24/18 03/10/23 History Spironolactone [Aldactone] 25 mg PO DAILY 02/24/18 03/10/23 History lisinopriL [Zestril] 2.5 mg PO HS 02/24/18 03/10/23 History Atorvastatin [Lipitor] 80 mg PO HS #90 tab 03/01/18 03/10/23 Rx Digoxin [Lanoxin] 125 mcg PO DAILY 09/20/20 03/10/23 History Amiodarone [Cordarone] 200 mg PO BID 03/10/23 03/10/23 History Ascorbic Acid [Vitamin C] 1,000 mg PO DAILY 03/10/23 03/10/23 History Cholecalciferol [Vitamin D3 (25 25 mcg PO DAILY 03/10/23 03/10/23 History Mcg = 1000 Iu)] Metoprolol Succinate [Toprol XL] 200 mg PO BID 03/10/23 03/10/23 History Rivaroxaban [Xarelto] 20 mg PO HS 03/10/23 03/10/23 History Vitamin E (Dl,Tocopheryl Acet) 400 unit PO DAILY 03/10/23 03/10/23 History [Vitamin E (400 Iu = 180 mg)] Allergies Allergy/AdvReac Type Severity Reaction Status Date / Time No Known Allergies Allergy Verified 03/10/23 17:44 Physical Exam Vitals: Vital Signs Temp Pulse Pulse Resp BP BP Pulse Ox 03/12/23 15:45 78 22 92/68 95 03/12/23 15:30 68 24 96/68 03/12/23 15:15 70 26 H 102/71 94 L 03/12/23 15:00 76 25 H 92/73 94 L 03/12/23 14:45 85 32 H 95 03/12/23 14:30 64 33 H 96/69 96 03/12/23 14:15 56 L 19 96/60 96 03/12/23 14:00 65 19 92/64 95 03/12/23 13:45 70 19 95/66 96 03/12/23 13:30 75 20 102/69 93 L 03/12/23 13:15 26 L 27 H 91/78 95 03/12/23 13:00 85 22 105/65 96 03/12/23 12:45 84 20 97/60 98 03/12/23 12:30 16 90/60 90 L 03/12/23 12:15 31 H 97/80 97 03/12/23 12:00 97.6 F 22 95/69 100 03/12/23 11:45 14 94/68 95 03/12/23 11:30 75 24 95/72 96 03/12/23 11:15 76 23 90/71 100 03/12/23 11:00 71 23 91/71 97 03/12/23 10:45 31 L 25 H 114/84 99 03/12/23 10:30 77 23 91/63 98 03/12/23 10:15 74 20 74/63 92 L 03/12/23 10:00 73 28 H 86/58 93 L 03/12/23 09:45 71 29 H 90/64 95 03/12/23 09:30 79 29 H 90/75 95 03/12/23 09:15 67 27 H 87/68 99 03/12/23 09:00 79 28 H 94/69 98 03/12/23 08:45 87 28 H 94/69 96 03/12/23 08:36 97.9 F 91 28 H 90/64 96 03/12/23 08:35 97.8 F 72 18 100/50 90 L 03/12/23 07:00 70 25 H 99/66 77 L 03/12/23 06:30 75 14 94/67 80 L 03/12/23 05:30 71 24 94/64 95 03/12/23 05:00 70 26 H 82/59 95 03/12/23 04:30 70 24 85/67 95 03/12/23 04:00 75 23 84/59 95 03/12/23 03:30 71 25 H 80/64 95 03/12/23 03:00 70 28 H 79/57 95 03/12/23 02:30 68 24 79/56 95 03/12/23 01:45 70 22 87/55 95 03/12/23 01:30 69 23 78/64 95 03/12/23 01:15 62 23 75/60 96 03/12/23 01:00 70 21 79/56 95 03/12/23 00:45 70 21 78/62 96 03/12/23 00:30 70 24 74/56 96 03/12/23 00:15 70 26 H 72/56 96 03/12/23 00:00 69 20 75/54 96 03/11/23 21:45 67 19 89/63 94 L 03/11/23 21:15 21 91/64 97 03/11/23 21:00 67 21 90/65 97 03/11/23 20:45 16 93/65 96 03/11/23 20:30 70 19 92/66 98 03/11/23 20:15 69 22 92/70 03/11/23 20:00 20 89/70 83 L 03/11/23 19:30 23 94/72 95 03/11/23 19:00 69 20 95/68 94 L 03/11/23 18:30 19 88/66 03/11/23 18:00 68 16 86/64 03/11/23 17:30 70 20 88/66 95 03/11/23 17:00 69 21 82/64 90 L 03/11/23 16:30 69 17 82/68 96 Intake and Output 03/12/23 03/12/23 03/12/23 06:59 14:59 22:59 Intake Total 38.021 680 160 Output Total 215 60 Balance 38.021 465 100 Intake: IV 680 160 Ampicillin-Sulbactam 3 gm 100 In Sodium Chloride 0.9% 100 ml @ 200 mls/hr IVPB Q12H [facility] Rx#:[id number] Dextrose 5% in Water 1, 300 150 000 ml @ 75 mls/hr IV . [id number] [facility] with Sodium Bicarb (1 Meq/ml) 150 ml Rx#:[id number] Invasive Line 4 20 10 Sodium Chloride 0.9% 1, 260 000 ml @ 130 mls/hr IV . Q7H42M [facility] Rx#:[id number] Intake, IV Titration 38.021 Amount Vasopressin 60 unit In 38.021 Sodium Chloride 0.9% 150 ml @ 0.03 UNITS/MIN 4.59 mls/hr IV .Q24H [facility] Rx#: [id number] Output: Urine 215 60 Other: Voiding Method Indwelling Catheter # Bowel Movements 1 1 Weight 52.163 kg - Constitutional General appearance: no acute distress, thin - EENT Eyes: EOMI, PERRLA ENT: hearing grossly normal - Neck Neck: no lymphadenopathy, other (Bandage over anterior neck at location of thyroid cartilage) - Respiratory Respiratory: bilateral: diminished - Cardiovascular Rhythm: regular - Gastrointestinal General gastrointestinal: no distended - Integumentary Integumentary: pale - Neurologic Neurologic: CNII-XII intact - Psychiatric Psychiatric: appropriate affect Results CBC & Chem 7: 03/12/23 06:39 03/12/23 06:39 Labs: Abnormal Lab Results - Last 24 Hours (Table) 03/12/23 03/12/23 03/12/23 Range/Units 06:39 06:39 07:08 WBC 19.0 H (3.8-10.6) k/uL RBC 4.01 L (4.30-5.90) m/uL MCV 103.3 H (80.0-100.0) fL Neutrophils # 13.7 H (1.3-7.7) k/uL Monocytes # 1.2 H (0-1.0) k/uL Sodium 135 L (137-145) mmol/L Carbon Dioxide 16 L (22-30) mmol/L BUN 42 H (9-20) mg/dL Creatinine 1.92 H (0.66-1.25) mg/dL Glucose 65 L (74-99) mg/dL POC Glucose (mg/dL) 60 L (70-110) mg/dL Calcium 7.3 L (8.4-10.2) mg/dL AST 92 H (17-59) U/L ALT 61 H (4-49) U/L Total Protein 5.4 L (6.3-8.2) g/dL Albumin 2.4 L (3.5-5.0) g/dL 03/12/23 03/12/23 03/12/23 Range/Units 07:30 07:49 11:32 WBC (3.8-10.6) k/uL RBC (4.30-5.90) m/uL MCV (80.0-100.0) fL Neutrophils # (1.3-7.7) k/uL Monocytes # (0-1.0) k/uL Sodium (137-145) mmol/L Carbon Dioxide (22-30) mmol/L BUN (9-20) mg/dL Creatinine (0.66-1.25) mg/dL Glucose (74-99) mg/dL POC Glucose (mg/dL) 54 L 50 L 131 H (70-110) mg/dL Calcium (8.4-10.2) mg/dL AST (17-59) U/L ALT (4-49) U/L Total Protein (6.3-8.2) g/dL Albumin (3.5-5.0) g/dL Microbiology - Last 24 Hours (Table) 03/11/23 19:10 Gram Stain - Preliminary Neck 03/10/23 19:30 Blood Culture - Preliminary Blood 03/10/23 17:26 Blood Culture - Preliminary Blood 03/11/23 01:20 Gram Stain - Preliminary Neck CT Scan - head: report reviewed, image reviewed Assessment and Plan Assessment: The patient is a 73-year-old male with a significant history of tobacco and a lcohol use. He presented to the emergency room on March 10 secondary to a draining neck wound, and was found to be in septic shock. Imaging revealed a possible underlying larynx mass. Plan: 1. Septic shock - Patient still on Antibiotics and requiring 2 pressors. Wor corazon to accommodate patient transfer, but he has been declined from outside facilities. 2. Larynx mass/neck lesion: The patient's imaging is worrisome for underlying malignancy. Per radiology, infection was also on the differential diagnosis. The patient's reported history of hoarseness for several months with sore throat and decreased appetite does seem a bit more consistent with malignancy. Superimposed infection is also possible. At this time, the patient does require additional workup. His CT shows his airway is fairly narrowed. He would likely benefit from ENT evaluation with bio psies and likely trach placement. However, the patient's medical condition may need to be stabilized prior to these measures. The patient is in the process of obtaining a transfer to a tertiary care facility. There is no urgent need for radiation at this time. We will continue to monitor the patient's progress. Time with Patient: Greater than 30
[2023-03-12 19:14] LABS: Glucose,Whole Blood 136 mg/dL (70-110)
--- NOTE | 2023-03-12 22:35 | P.PN ---
Subjective Progress Note Date: 03/12/23 This is a 73 year old male with medical history of atrial fibrillation anticoagulated with xarelto, gastroesophageal reflux disease, prostate cancer with prostatectomy, smoking history 1/2 pack per day and reports occasional marijuana use. Patient comes in to the ER for weakness unable to ambulate and also evaluation of a draining neck mass. Patient follows with Dr Azevedo has not been seen in the office per patient for atleast 1 year. He reports having a "raspy voice" for the last 2 years. He was in to see his welcome wagon host/hostess Dr. Johnson earlier this month states his cardiac medications were adjusted. States about 2 weeks ago he noticed swelling in the front of his neck and for the last week or so he has been having purulent drainage from the neck mass. Denies history of lung cancer. He has not been in to see a medical doctor for evaluation of this neck mass. Soft tissue neck CT was done showing no clear evidence of bulky adenopathy or fluid collection in the neck. Within the subglottic airway at the level of the larynx there is abnormal irregular soft tissue density which significantly narrows the airway at this level with a small residual patent passage. Details in report. Primary consideration is neoplasm, this does not have the typical appearance of a fluid collection/abscess, but infection is in the differential. Soft tissue density appears to extend from #3 to the anterior surface of the neck just right of midline. Mild/moderate emphysematous changes in the lung apices. Chest xray is negative for acute findings. Initial blood work reveals white count of 14.5, INR of 1.7, sodium 127, BUN 55, creatinine 2.56, Lactic acid 2.5, proBNP of 5120. Patient has troponin elevation 0.064, 0.073. Urinalysis showing trace protein, large leukocyte esterase, occasional bacterial. Patient is hypotensive on admission BP down to 68/54. He was given 4.5L of normal saline fluid bolus. Admitted to the hospital for sepsis and evaluation of the neck mass which was cultured, and also blood cultures taken. He is requiring levophed and vasopressin support and admitted as an ICU hold currently still in the ER. He has been started on empiric antibiotics with IV vancomycin and IV unasyn. Multiple consultations in place including resource manager, nephrology, cardiology, oncology, ID and radiation/oncologist. 03/12/2023 Patient evaluated in the medical ICU today. He continues to have purulent dr knutson from a presumed neck abscess with cultures currently pending. Preliminary showing moderate gram positive cocci he is on course of IV unasyn and IV daptomycin with ID following. Would benefit from drainage of the abscess. There is currently no ENT coverage. Patient remains on Levophed and vasopressin at this time blood pressure 90/60s. He remains afebrile. Oxygen saturation 97% on 2L of oxygen. Discussion with patient he does want treatment would like to know his options. We have pursued transfer for ENT and head/neck surgeon and is pending a MICU bed at [facility] currently has been accepting with Dr. Moses Wood as attending. [facility] not accepting patient at this time. [facility] felt unstable for transfer would not accept to the Surgical ICU and does not have a MICU bed available. [facility] did not accept this patient felt he needed specialists which are available at [facility]. His labs today are showing white count of 19.0, hgb stable 13.8, sodium 135, potassium 3.6, BUN 42, creatinine 1.92. LFTs stable. AM cortisol elevated at 33.4. Multiple consultations following including resource manager, surgery, nephrology, ID, cardiology, oncology. Review of Systems Constitutional: Reports fatigue denied any fever. Cardio vascular: denied any chest pain, palpitations Gastrointestinal: denied any nausea, vomiting, diarrhea Pulmonary: Denied any shortness of breath, no cough has raspy voice Neurologic denied any new focal deficits reports weakness All inpatient medications were reviewed and appropriate changes in these medications as dictated in the interval history and assessment and plan. PHYSICAL EXAMINATION: GENERAL: The patient is alert and oriented x3, not in any acute distress. Well developed, well nourished. HEENT: Pupils are round and equally reacting to light. EOMI. No scleral icterus. No conjunctival pallor. Normocephalic, atraumatic. No pharyngeal erythema. No thyromegaly. There is a large neck pass right of midline with thick purulent drainage, non bloody. There is surrounding erythema. Voice is raspy. Poor dentition. CARDIOVASCULAR: S1 and S2 present. No murmurs, rubs, or gallops. PULMONARY: Chest is clear to auscultation, no wheezing or crackles. ABDOMEN: Soft, nontender, nondistended, normoactive bowel sounds. No palpable organomegaly. MUSCULOSKELETAL: No joint swelling or deformity. EXTREMITIES: No cyanosis, clubbing, or pedal edema. NEUROLOGICAL: Gross neurological examination did not reveal any focal deficits. Diffuse weakness. SKIN: No rashes. Assessment and Plan -Neck mass with purulent drainage suspicious for malignancy and necrosis with possible underlying bacterial infection/cellulitis with sepsis present on admission. There is evidence of narrowing of the airway on imaging. There is no ENT coverage. Patient would benefit from transfer to tertiary care center for ENT and head/neck surgeon consultation. Currently accepted at [facility] MICU pending bed have been denied at multiple other hospitals for transfer. Gen surgery following and ID following. Patient continues on antibiotic coverage with IV unasyn and IV daptomycin and cultures are currently pending. -Septic shock requiring fluid resuscitation and on vasopressor support with levophed and vasopressin -Lactic acidosis -Hyponatremia hypovolemic improving with IV fluids patient will be continued on normal saline at 130 mls/hr. -Acute kidney injury due to acute tubular necrosis from sepsis and shock expected to improve with IV fluids, nephrology is placed on consultation -Elevated troponin likely type 2 DC and sepsis, echocardiogram has been ordered, cardiology consultation in place and following. -Hypokalemia from poor oral intake improved with supplementation -Permanent atrial fibrillation anticoagulated with xarelto on an outpatient basis -Hx of AICD and cardiomyopathy with reduced EF -Coronary artery disease and prior stent to the LAD -Hx of prostate cancer with prostatectomy -Hypertension hx currently hypotensive holding lisinopril at this time -Hyperlipidemia resumed on atorvastatin -Severe protein calorie malnutrition with BMI of 16.5 Patient has had recent weight loss of 35 lbs in the last month and also reports difficulty swallowing likely from the neck mass and airway narrowing. -Chronic nicotine use GI prophylaxis DVT prophylaxis with subcu heparin, xarelto is being held at this time while patient is undergo further work up for the next mass. Full Code Greater than 60 minutes have been spent on coordination of care with resource manager and multiple hospital systems and transfer centers. The impression and plan of care has been dictated by Gunjan Watkins Nurse Practitioner as directed. Dr. Elda MD I have performed a history and physical examination and medical decision making of this patient, discussed the same with the dictator, and agree with the dictators assessment and plan as written, documented as a scribe. Based on total visit time, I have performed more than 50% of this visit. Objective - Vital Signs Vital signs: Vital Signs Temp 97.6 F 03/12/23 12:00 Pulse 70 03/12/23 16:45 Resp 18 03/12/23 16:45 BP 90/68 03/12/23 16:45 Pulse Ox 96 03/12/23 16:45 FiO2 Intake & Output 03/11/23 03/12/23 03/12/23 18:59 06:59 18:59 Intake Total 20.783 38.021 944.360 Output Total 275 Balance 20.783 38.021 669.360 Weight 52.163 kg Intake: IV 840 Ampicillin-Sulbactam 3 gm 100 In Sodium Chloride 0.9% 100 ml @ 200 mls/hr IVPB Q12H [facility] Rx#:[id number] Dextrose 5% in Water 1, 450 000 ml @ 75 mls/hr IV . [id number] ONE with Sodium Bicarb (1 Meq/ml) 150 ml Rx#:[id number] Invasive Line 4 30 Sodium Chloride 0.9% 1, 260 000 ml @ 130 mls/hr IV . [id number] [facility] Rx#:[id number] Intake, IV Titration 20.783 38.021 104.360 Amount Norepinephrine 32 mg In 20.783 Sodium Chloride 0.9% 218 ml @ 0.03 MCG/KG/MIN 0. 734 mls/hr IV .Q24H ONE Rx#:[id number] Norepinephrine 32 mg In 60.296 Sodium Chloride 0.9% 218 ml @ 0.18 MCG/KG/MIN 4. 401 mls/hr IV .Q24H [facility] Rx#:[id number] Vasopressin 60 unit In 38.021 44.064 Sodium Chloride 0.9% 150 ml @ 0.03 UNITS/MIN 4.59 mls/hr IV .Q24H [facility] Rx#: [id number] Output: Urine 275 Other: Voiding Method Indwelling Catheter # Bowel Movements 1 - Labs CBC & Chem 7: 03/12/23 06:39 03/12/23 06:39 Labs: Abnormal Lab Results - Last 24 Hours (Table) 03/12/23 03/12/23 03/12/23 Range/Units 06:39 06:39 07:08 WBC 19.0 H (3.8-10.6) k/uL RBC 4.01 L (4.30-5.90) m/uL MCV 103.3 H (80.0-100.0) fL Neutrophils # 13.7 H (1.3-7.7) k/uL Monocytes # 1.2 H (0-1.0) k/uL Sodium 135 L (137-145) mmol/L Carbon Dioxide 16 L (22-30) mmol/L BUN 42 H (9-20) mg/dL Creatinine 1.92 H (0.66-1.25) mg/dL Glucose 65 L (74-99) mg/dL POC Glucose (mg/dL) 60 L (70-110) mg/dL Calcium 7.3 L (8.4-10.2) mg/dL AST 92 H (17-59) U/L ALT 61 H (4-49) U/L Total Protein 5.4 L (6.3-8.2) g/dL Albumin 2.4 L (3.5-5.0) g/dL Cortisol (3.1-22.4) UG/DL 03/12/23 03/12/23 03/12/23 Range/Units 07:30 07:49 10:17 WBC (3.8-10.6) k/uL RBC (4.30-5.90) m/uL MCV (80.0-100.0) fL Neutrophils # (1.3-7.7) k/uL Monocytes # (0-1.0) k/uL Sodium (137-145) mmol/L Carbon Dioxide (22-30) mmol/L BUN (9-20) mg/dL Creatinine (0.66-1.25) mg/dL Glucose (74-99) mg/dL POC Glucose (mg/dL) 54 L 50 L (70-110) mg/dL Calcium (8.4-10.2) mg/dL AST (17-59) U/L ALT (4-49) U/L Total Protein (6.3-8.2) g/dL Albumin (3.5-5.0) g/dL Cortisol 33.4 H (3.1-22.4) UG/DL 03/12/23 Range/Units 11:32 WBC (3.8-10.6) k/uL RBC (4.30-5.90) m/uL MCV (80.0-100.0) fL Neutrophils # (1.3-7.7) k/uL Monocytes # (0-1.0) k/uL Sodium (137-145) mmol/L Carbon Dioxide (22-30) mmol/L BUN (9-20) mg/dL Creatinine (0.66-1.25) mg/dL Glucose (74-99) mg/dL POC Glucose (mg/dL) 131 H (70-110) mg/dL Calcium (8.4-10.2) mg/dL AST (17-59) U/L ALT (4-49) U/L Total Protein (6.3-8.2) g/dL Albumin (3.5-5.0) g/dL Cortisol (3.1-22.4) UG/DL Microbiology - Last 24 Hours (Table) 03/11/23 19:10 Gram Stain - Preliminary Neck 03/10/23 19:30 Blood Culture - Preliminary Blood 03/10/23 17:26 Blood Culture - Preliminary Blood 03/11/23 01:20 Gram Stain - Preliminary Neck Assessment and Plan Time with Patient: Greater than 30
[2023-03-12 23:48] LABS: Glucose,Whole Blood 140 mg/dL (70-110)
[2023-03-13] MEDS: NOREPINEPHRINE 32 MG in SODIUM CHLORIDE 0.9% 218 ML IV SCH (00:27)
[2023-03-13] MEDS: AMPICILLIN-SULBACTAM 3 GM in SODIUM CHLORIDE 0.9% 100 ML IVPB SCH ×2 (06:29→16:00)
[2023-03-13 06:30] LABS: Glucose,Whole Blood 150 mg/dL (70-110)
[2023-03-13 06:31] LABS: Basophils % (A) 0 %; Eosinophils % (A) 0 %; HGB 12.5 gm/dL (13.0-17.5); Lymphocytes % (A) 15 %; MCH 34.6 pg (25.0-35.0); MCHC 34.7 g/dL (31.0-37.0); MCV 99.8 fL (80.0-100.0); Mean Platelet Volume 8.5; Monocytes # (A) 1.5 k/uL (0-1.0); Monocytes % (A) 12 %; Neutrophils # (A) 9.3 k/uL (1.3-7.7); Neutrophils % (A) 71 %; Platelet Count 253 k/uL (150-450); RDW 12.4 % (11.5-15.5); WBC 13.1 k/uL (3.8-10.6)
[2023-03-13 06:34] LABS: African American GFR (CKD) 68 (>60 ml/min/1.73 sqM); Anion Gap 11 mmol/L; Blood Urea Nitrogen 34 mg/dL (9-20); Carbon Dioxide 28 mmol/L (22-30); Chloride 96 mmol/L (98-107); Glucose 152 mg/dL (74-99); Non-African American GFR(CKD) 59 (>60 ml/min/1.73 sqM); Potassium 2.8 mmol/L (3.5-5.1); Sodium 135 mmol/L (137-145)
[2023-03-13] MEDS ORDERED: SODIUM CHLORIDE 0.9% 1,000 ML IV SCH (07:00)
[2023-03-13] MEDS ORDERED: DEXTROSE 5% IN WATER 1,000 ML with SODIUM BICARB (1 MEQ/ML) 150 ML IV SCH (07:00)
[2023-03-13] MEDS ORDERED: Potassium Replacement Protocol 1 EACH MISC MISCELLANE PRN (07:11)
[2023-03-13] MEDS: POTASSIUM CHLORIDE 20 MEQ in WATER FOR INJECTION 1 100ML.BAG IVPB SCH ×5 (07:16→22:00)
--- NOTE | 2023-03-13 09:14 | P.PN ---
Subjective Progress Note Date: 03/13/23 I am seeing this patient in consultation today 03/11/2023 in the emergency room after he presented with chief complaint of draining neck wound. He was weak and found to have low blood pressures on EMS arrival. Patient is a 73-year-old white male with past medical history significant for atrial fibrillation anticoagulated on Xarelto, AICD implantation, hypertension, hyperlipidemia, prostate cancer status post prostatectomy, and is a chronic ongoing tobacco smoker. His primary care provider is Dr. Azevedo. He reportedly lives with a friend. Patient states that he first noticed his neck mass approximately 1-2 weeks ago. He recently opened and started draining a purulent colored drainage. He states that his voice is been hoarse. He's had reduced appetite, and poor oral intake. He's been more weak. He appears emaciated and cachectic. He is reportedly lost about 35 pounds in the last month. EMS was called, on arrival, the patient was found to be hypotensive. On the emergency room, the patient was fluid resuscitated with a total of 4.5 L normal saline bolus. A central line was placed by the ER physician and the right IJ. Patient was then started on vasopressors, in the form of norepinephrine which is infusing at 0.2 mcg/kg/m. Blood cultures have been drawn. Patient has been started on empiric antibiotics. Wound cultures will be taken. A CT of the neck demonstrated an ir regular soft tissue density within the subglottic airway at the level of the larynx which significantly narrows the airway at this level and will use only a small residual passage. This mass is measured at 5.1 cm x 5.1 cm x 4.7 cm. On clinical examination, the patient's neck wound is draining a purulent drainage concerning for infection as well. Patient is currently lying in bed, on 2 L/m nasal cannula, in no acute distress. He is on 2 L/m nasal cannula. SpO2 is 97%. His voice is hoarse. No significant stridor. Patient was given 100 mg of Solu-Cortef. CBC on arrival shows leukocytosis of his count of 14.5, globin 15.4, hematocrit 43.6, platelets 334. BMP shows sodium 127, potassium 3.6, chloride 79, serum bicarbonate 36, BUN 55, creatinine 2.56, glucose 82. Lactic acid level was elevated at 2.5 times is now 1.7. Troponins mildly elevated at 0.064 and 0.073 respectively. NT proBNP is 5120. Chest x-ray did not show any pulmonary mass or congestion or cardiomegaly. No focal consolidation or evidence of pneumonia either. There is an implanted AICD/pacemaker. ECG shows a ventricular paced rhythm. Patient is currently afebrile. Blood pressure remains hypotensive, We'll likely have to add a second vasopressor. Patient does have indwelling urinary catheter, and urine appears concentrated. I saw and evaluated this patient in the emergency department. I also reviewed the CAT scan of the neck. There is significant compromise of the upper airway probably related to an abscess which is draining externally at this point in time. Diastasis tunneled exteriorly and the patient has a an open draining possible over the anterior neck area which is purulent and foul-smelling. The patient despite this is awake and alert. He is hypotensive and hemodynamically unstable and he was aggressively resuscitated with IV fluids in the is also on pressors. He has a raspy voice. Minimal end inspiratory stridor is also appreciated in the neck area. He has very poor dental condition. Is a chronic smoker and he is also a chronic alcohol drinker. CAT scan of the abdomen and pelvis was also done that showed moderate bilateral pleural effusions and ascites with mild anas arca as the patient admits to drinking a pint of liquor on a daily basis. Comorbid conditions include coronary artery disease with previous stenting of the LAD, cardiomyopathy with an ejection fraction of 20% with history of AICD placement, history of A. fib, hypertension, hyperlipidemia, prostate cancer, COPD, alcoholism, smoking, previous history of melanoma that has been resected from the face On today's evaluation of 03/12/2023, the patient continues to have a raspy voice. He does have a draining abscess over the neck with purulent drainage as noted. Cultures are still pending for now. He remains on ABX. He is awake and alert and communicating. He does have some minimal end inspiratory stridor. Nevertheless, he does not have any significant respiratory distress at this point in time. No altered mentation. He remains hypotensive and the patient remains on a combination of norepinephrine running at 0.18 microvascular kilogram per minute and he is also on physiologic dose of vasopressin. He is a triple-lumen catheter in his right IJ. In terms of his cardiac rhythm, he is in atrial fibrillation with a controlled rate. His previous echocardiogram has revealed an ejection fraction of 20% and the patient has an AICD in place. Follow-up blood work today that showed a sodium level of 135, potassium of 3.6, chloride is 19 with a bicarb of 16. BUN is at 42 with a creatinine of 1.9. The patient has a white cell count of 19 with a hemoglobin 15.6 and a platelet count of 313. Is currently on oxygen at 4 L/m nasal cannula. His antibiotic coverage including combination of Unasyn and daptomycin. ENT declined the consultation On 03/13/2023, I'm seeing the patient for a follow-up. He remains on 2 L of oxygen by nasal cannula. No stridor. No respiratory distress. He is able to speak in the voice is raspy. The neck abscess is still draining externally and the Gram stain is positive for gram-positive cocci. The white cell count is improving. The renal function is improving. He remains on pressors and the patient on norepinephrine running at 0.1 mcg/kg/m and vasopressin physiologic dose. Pressors are being gradually weaned off. No altered mentation. No fever. No respiratory distress. He failed the swallow evaluation and based on that the patient was kept nothing by mouth. The white cell count on 213, hemoglobin was 12.5, knee and is at 34 with a creatinine of 1.2. Potassium levels at 2.8 and sodium level is at 135. His serum cortisol is at 33. Antibiotic coverage included a combination of Unasyn and daptomycin. No other significant events overnight. Is awake and alert and communicating. He has a right IJ triple lumen catheter in place. The patient was about to get transferred to [facility] in [place] and ultimately the inspector multifocal lens felt extremely uncomfortable taken in and he declined the transfer. When the process of making arrangements for this patient to be transferred to [facility]. He needs complex intervention, ENT evaluation, tracheostomy tube insertion, PEG tube insertion, surgical debridement and evaluation of his upper airway. ENT in our facility declined the consult. Objective - Vital Signs Vital signs: Vital Signs Temp 97.8 F 03/13/23 04:00 Pulse 65 03/13/23 09:06 Resp 17 03/13/23 07:00 BP 93/67 03/13/23 07:00 Pulse Ox 99 03/13/23 08:53 FiO2 Intake & Output 03/12/23 03/13/23 03/13/23 18:59 06:59 18:59 Intake Total 1094.360 930 75 Output Total 340 510 45 Balance 754.360 420 30 Weight 57.163 kg 73.9 kg Intake: IV 990 930 75 Ampicillin-Sulbactam 3 gm 100 In Sodium Chloride 0.9% 100 ml @ 200 mls/hr IVPB Q12H [facility] Rx#:[id number] Dextrose 5% in Water 1, 600 900 75 000 ml @ 75 mls/hr IV . [id number] ONE with Sodium Bicarb (1 Meq/ml) 150 ml Rx#:[id number] Invasive Line 4 30 30 Sodium Chloride 0.9% 1, 260 000 ml @ 130 mls/hr IV . Q7H42M [facility] Rx#:[id number] Intake, IV Titration 104.360 Amount Norepinephrine 32 mg In 60.296 Sodium Chloride 0.9% 218 ml @ 0.18 MCG/KG/MIN 4. 401 mls/hr IV .Q24H [facility] Rx#:[id number] Vasopressin 60 unit In 44.064 Sodium Chloride 0.9% 150 ml @ 0.03 UNITS/MIN 4.59 mls/hr IV .Q24H [facility] Rx#: [id number] Output: Urine 340 510 45 Other: Voiding Method Indwelling Catheter Indwelling Catheter # Bowel Movements 1 - Exam GENERAL EXAM: Alert, 73-year-old white male cachectic and weak, fairly comf ortable in no apparent distress. The patient is currently on 2 L of oxygen by nasal cannula. HEAD: Normocephalic and atraumatic EYES: Normal reaction of pupils, equal size. NOSE: Clear with pink turbinates. THROAT: There is very poor dentition. No erythema or exudates. NECK: There is an anterior soft tissue mass with purulent draining fluid. No stridor evaluated today CHEST: No chest wall deformity. There is a soft tissue mass anterior midline. LUNGS: Equal air entry with no crackles, wheeze, rhonchi or dullness. On 2 L/m nasal cannula. SpO2 is 97%. No conversational dyspnea or accessory muscle use.. CVS: S1 and S2 normal with no audible murmur, regular rhythm. No extra heart sounds ABDOMEN: No hepatosplenomegaly, active bowel sounds, no guarding or rigidity. SPINE: No scoliosis or deformity SKIN: No rashes CENTRAL NERVOUS SYSTEM: No focal deficits, tone is normal in all 4 extremities. EXTREMITIES: There is no peripheral edema, clubbing, or cyanosis. Peripheral pulses are intact. - Labs CBC & Chem 7: 03/13/23 05:33 03/13/23 05:33 Labs: Abnormal Lab Results - Last 24 Hours (Table) 03/12/23 03/12/23 03/12/23 Range/Units 10:17 11:32 19:12 WBC (3.8-10.6) k/uL RBC (4.30-5.90) m/uL Hgb (13.0-17.5) gm/dL Hct (39.0-53.0) % Neutrophils # (1.3-7.7) k/uL Monocytes # (0-1.0) k/uL Sodium (137-145) mmol/L Potassium (3.5-5.1) mmol/L Chloride (98-107) mmol/L BUN (9-20) mg/dL Glucose (74-99) mg/dL POC Glucose (mg/dL) 131 H 136 H (70-110) mg/dL Calcium (8.4-10.2) mg/dL Cortisol 33.4 H (3.1-22.4) UG/DL 03/12/23 03/13/23 03/13/23 Range/Units 23:46 05:33 05:33 WBC 13.1 H (3.8-10.6) k/uL RBC 3.60 L (4.30-5.90) m/uL Hgb 12.5 L (13.0-17.5) gm/dL Hct 36.0 L (39.0-53.0) % Neutrophils # 9.3 H (1.3-7.7) k/uL Monocytes # 1.5 H (0-1.0) k/uL Sodium 135 L (137-145) mmol/L Potassium 2.8 L (3.5-5.1) mmol/L Chloride 96 L (98-107) mmol/L BUN 34 H (9-20) mg/dL Glucose 152 H (74-99) mg/dL POC Glucose (mg/dL) 140 H (70-110) mg/dL Calcium 7.0 L (8.4-10.2) mg/dL Cortisol (3.1-22.4) UG/DL 03/13/23 Range/Units 06:28 WBC (3.8-10.6) k/uL RBC (4.30-5.90) m/uL Hgb (13.0-17.5) gm/dL Hct (39.0-53.0) % Neutrophils # (1.3-7.7) k/uL Monocytes # (0-1.0) k/uL Sodium (137-145) mmol/L Potassium (3.5-5.1) mmol/L Chloride (98-107) mmol/L BUN (9-20) mg/dL Glucose (74-99) mg/dL POC Glucose (mg/dL) 150 H (70-110) mg/dL Calcium (8.4-10.2) mg/dL Cortisol (3.1-22.4) UG/DL Microbiology - Last 24 Hours (Table) 03/10/23 19:30 Blood Culture - Preliminary Blood 03/10/23 17:26 Blood Culture - Preliminary Blood 03/11/23 19:10 Gram Stain - Preliminary Neck Assessment and Plan Plan: Neck mass/abscess draining exteriorly and acid tunneled and the patient has an open draining wound with purulent foul-smelling material coming out of the area over the anterior neck. There is some swelling of the neck anteriorly. The same time, CAT scan of the neck shows irregular soft tissue density in the subglottic area causing airway compromise and significant narrowing of the subglottic airway and there is a soft tissue density measuring approximately 5 cm in size. On examination, the patient has a raspy voice and on today's evaluation, he has no stridor. The patient is currently admitted to the intensive care unit. No interval change since yesterday. The abscess is still draining exteriorly with purulent drainage noted. Cultures are still pending. The Gram stain is showing gram-positive cocci. The patient continues to drain purulent material from the neck wounds. No signs of any respiratory compromise for now and he remains on 2 L of oxygen by nasal cannula. sepsis and septic shock, refractory to fluid resuscitation, currently requiring vasopressors, currently on a combination of norepinephrine and vasopressin, consider also a component of cardiogenic shock and the patient has severe cardiomyopathy. Echocardiogram is to be repeated today. Awaiting the reports of the echocardiogram. Meanwhile, the patient is being gradually weaned off the pressors. He remains on a combination of vasopressin physiologic dose and norepinephrine. Cardiomyopathy with an ejection fraction less than 20% Proximal atrial fibrillation with previous cardioversion and the patient is currently V paced Acute kidney injury, related to hypotension and shock, creatinine continues to improve Non-anion gap metabolic acidosis, recovered Possible UTI, awaiting cultures Hypovolemic hyponatremia, possibly related to poor oral intake, stable Severe protein calorie malnutrition and cachexia Elevated troponins, possibly related to supply/demand mismatch and sepsis History of atrial fibrillation, normally anticoagulated on Xarelto History of implanted AICD/pacemaker, currently V-paced rhythm Troponin leak secondary to above History of hypertension History of hyperlipidemia History of prostate cancer status post prostatectomy Chronic ongoing tobacco dependence Alcoholism Ascites and diffuse anasarca Poor dental condition and multiple decayed teeth Poor medical follow-up and his last office evaluation of his primary care physician was more than a year ago. Plan: The patient failed swallow and the patient will be kept nothing by mouth for now Switch this patient on normal saline at the rate of 50 mL an hour Continue Unasyn and daptomycin Awaiting cultures, there is gram-positive cocci Continue pressors and wean off the norepinephrine to maintain mean arterial pressure above 60 Continue pressors and the patient is currently on norepinephrine and vasopressin, was started norepinephrine to maintain a mean arterial pressure abo ve 60 and continue vasopressin physiologic dose Hold diuretics Hold anticoagulants for now Cardiac rhythm is atrial fibrillation, controlled rate Triple-lumen catheter was established I recommend transferring this patient for an upper airway compromise. As mentioned, the [facility] team in [place] declined transfer. ENT services now facility declined the consult. [facility] and other [facility] facilities in all declined the transfer. [facility] is accepting the transfer. Awaiting bed assignment. The patient will need a tracheostomy tube insertion, PEG tube insertion, surgical debridement, evaluation of the upper airway by ENT Condition is critical at this point in time. Spend more than 1 hour attempting to facilitate transfer this patient. Continue to follow. Keep in ICU. No stridor. No signs of any respiratory distress. W monitored in the intensive care unit. Time with Patient: Greater than 30
[2023-03-13] MEDS: SODIUM CHLORIDE 0.9% 1,000 ML IV SCH (09:19)
[2023-03-13] MEDS: HEPARIN SODIUM,PORCINE 5,000 UNIT/ML 1 ML VIAL SQ SCH ×2 (09:27→17:00)
[2023-03-13] MEDS: FAMOTIDINE 20 MG/2 ML VIAL IV SCH (09:27)
--- NOTE | 2023-03-13 10:46 | P.PN ---
Subjective Patient is seen in follow-up for acute kidney injury. Renal function improving. Sitting up in bed. Denies chest pain or shortness of breath. On Levophed and vasopressin. Denies chest pain or shortness of breath. Nonoliguric. Vital signs are stable. On vasopressor support. General: No acute distress. HEENT Neck dressing noted. No drainage.: LUNGS: No audible rhonchi or wheezes. HEART: Rate and Rhythm are regular. ABDOMEN: Nontender. EXTREMITITES: No edema. Objective - Vital Signs Vital signs: Vital Signs Temp 97.6 F 03/13/23 08:00 Pulse 80 03/13/23 09:15 Resp 11 L 03/13/23 09:15 BP 104/84 03/13/23 09:15 Pulse Ox 97 03/13/23 09:15 FiO2 Intake & Output 03/12/23 03/13/23 03/13/23 18:59 06:59 18:59 Intake Total 1094.360 930 510 Output Total 340 510 135 Balance 754.360 420 375 Weight 57.163 kg 73.9 kg Intake: IV 990 930 510 Ampicillin-Sulbactam 3 gm 100 100 In Sodium Chloride 0.9% 100 ml @ 200 mls/hr IVPB Q12H [facility] Rx#:[id number] Dextrose 5% in Water 1, 600 900 150 000 ml @ 75 mls/hr IV . [id number] ONE with Sodium Bicarb (1 Meq/ml) 150 ml Rx#:[id number] Invasive Line 4 30 30 10 Potassium Chloride 20 meq 200 In Water For Injection 1 100ml.bag @ 50 mls/hr IVPB Q2H [facility] Rx#: [id number] Sodium Chloride 0.9% 1, 260 000 ml @ 130 mls/hr IV . Q7H42M [facility] Rx#:[id number] Sodium Chloride 0.9% 1, 50 000 ml @ 50 mls/hr IV . Q20H [facility] Rx#:[id number] Intake, IV Titration 104.360 Amount Norepinephrine 32 mg In 60.296 Sodium Chloride 0.9% 218 ml @ 0.18 MCG/KG/MIN 4. 401 mls/hr IV .Q24H [facility] Rx#:[id number] Vasopressin 60 unit In 44.064 Sodium Chloride 0.9% 150 ml @ 0.03 UNITS/MIN 4.59 mls/hr IV .Q24H [facility] Rx#: [id number] Output: Urine 340 510 135 Other: Voiding Method Indwelling Catheter Indwelling Catheter Indwelling Catheter # Bowel Movements 1 - Labs CBC & Chem 7: 03/13/23 05:33 03/13/23 05:33 Labs: Abnormal Lab Results - Last 24 Hours (Table) 03/12/23 03/12/23 03/12/23 Range/Units 10:17 11:32 19:12 WBC (3.8-10.6) k/uL RBC (4.30-5.90) m/uL Hgb (13.0-17.5) gm/dL Hct (39.0-53.0) % Neutrophils # (1.3-7.7) k/uL Monocytes # (0-1.0) k/uL Sodium (137-145) mmol/L Potassium (3.5-5.1) mmol/L Chloride (98-107) mmol/L BUN (9-20) mg/dL Glucose (74-99) mg/dL POC Glucose (mg/dL) 131 H 136 H (70-110) mg/dL Calcium (8.4-10.2) mg/dL Cortisol 33.4 H (3.1-22.4) UG/DL 03/12/23 03/13/23 03/13/23 Range/Units 23:46 05:33 05:33 WBC 13.1 H (3.8-10.6) k/uL RBC 3.60 L (4.30-5.90) m/uL Hgb 12.5 L (13.0-17.5) gm/dL Hct 36.0 L (39.0-53.0) % Neutrophils # 9.3 H (1.3-7.7) k/uL Monocytes # 1.5 H (0-1.0) k/uL Sodium 135 L (137-145) mmol/L Potassium 2.8 L (3.5-5.1) mmol/L Chloride 96 L (98-107) mmol/L BUN 34 H (9-20) mg/dL Glucose 152 H (74-99) mg/dL POC Glucose (mg/dL) 140 H (70-110) mg/dL Calcium 7.0 L (8.4-10.2) mg/dL Cortisol (3.1-22.4) UG/DL 03/13/23 Range/Units 06:28 WBC (3.8-10.6) k/uL RBC (4.30-5.90) m/uL Hgb (13.0-17.5) gm/dL Hct (39.0-53.0) % Neutrophils # (1.3-7.7) k/uL Monocytes # (0-1.0) k/uL Sodium (137-145) mmol/L Potassium (3.5-5.1) mmol/L Chloride (98-107) mmol/L BUN (9-20) mg/dL Glucose (74-99) mg/dL POC Glucose (mg/dL) 150 H (70-110) mg/dL Calcium (8.4-10.2) mg/dL Cortisol (3.1-22.4) UG/DL Microbiology - Last 24 Hours (Table) 03/10/23 19:30 Blood Culture - Preliminary Blood 03/10/23 17:26 Blood Culture - Preliminary Blood 03/11/23 19:10 Gram Stain - Preliminary Neck Assessment and Plan Plan: Assessment: 1. Acute kidney injury secondary to ATN secondary to septic shock. Creatinine was 2.56 on admission and is 1.23 today. Baseline creatinine from 2020 0.7-0.8. No hydronephrosis noted on CAT scan. 2. Metabolic acidosis secondary to acute kidney injury and IV fluids. Improved with bicarbonate drip. 3. Septic shock secondary to Neck mass/abscess on IV antibiotics. On vasopressors. Neck mass possibly malignant. 4. Chronic systolic CHF with ejection fraction of less than 20% status post AICD. 5. Hypokalemia from poor intake and intracellular shifting from IV bicarb. 6. Hypovolemic hyponatremia improved with IV fluids. Stable. Plan: Stop bicarb drip and start normal saline. Replace potassium. Avoid nephrotoxins. Continue to monitor renal function and urine output. Monitor volume status closely. Awaits transfer to [facility].
--- NOTE | 2023-03-13 10:57 | P.PN ---
Subjective Progress Note Date: 03/13/23 NAEON. No F/C. No SOB or CP. Admits to flatus, no BM. Tolerating oral secretions Objective - Vital Signs Vital signs: Vital Signs Temp 97.6 F 03/13/23 08:00 Pulse 80 03/13/23 09:15 Resp 11 L 03/13/23 09:15 BP 104/84 03/13/23 09:15 Pulse Ox 97 03/13/23 09:15 FiO2 Intake & Output 03/12/23 03/13/23 03/13/23 18:59 06:59 18:59 Intake Total 1094.360 930 510 Output Total 340 510 135 Balance 754.360 420 375 Weight 57.163 kg 73.9 kg Intake: IV 990 930 510 Ampicillin-Sulbactam 3 gm 100 100 In Sodium Chloride 0.9% 100 ml @ 200 mls/hr IVPB Q12H [facility] Rx#:[id number] Dextrose 5% in Water 1, 600 900 150 000 ml @ 75 mls/hr IV . [id number] ONE with Sodium Bicarb (1 Meq/ml) 150 ml Rx#:[id number] Invasive Line 4 30 30 10 Potassium Chloride 20 meq 200 In Water For Injection 1 100ml.bag @ 50 mls/hr IVPB Q2H [facility] Rx#: [id number] Sodium Chloride 0.9% 1, 260 000 ml @ 130 mls/hr IV . Q7H42M [facility] Rx#:[id number] Sodium Chloride 0.9% 1, 50 000 ml @ 50 mls/hr IV . Q20H [facility] Rx#:[id number] Intake, IV Titration 104.360 Amount Norepinephrine 32 mg In 60.296 Sodium Chloride 0.9% 218 ml @ 0.18 MCG/KG/MIN 4. 401 mls/hr IV .Q24H [facility] Rx#:[id number] Vasopressin 60 unit In 44.064 Sodium Chloride 0.9% 150 ml @ 0.03 UNITS/MIN 4.59 mls/hr IV .Q24H [facility] Rx#: [id number] Output: Urine 340 510 135 Other: Voiding Method Indwelling Catheter Indwelling Catheter Indwelling Catheter # Bowel Movements 1 - Exam Gen: AxO, NAD HEENT: neck supple, trachea midline Abd: soft, non-tender, non-distended Extrem: no edema appreciated - Labs CBC & Chem 7: 03/13/23 05:33 03/13/23 05:33 Labs: Abnormal Lab Results - Last 24 Hours (Table) 03/12/23 03/12/23 03/12/23 Range/Units 10:17 11:32 19:12 WBC (3.8-10.6) k/uL RBC (4.30-5.90) m/uL Hgb (13.0-17.5) gm/dL Hct (39.0-53.0) % Neutrophils # (1.3-7.7) k/uL Monocytes # (0-1.0) k/uL Sodium (137-145) mmol/L Potassium (3.5-5.1) mmol/L Chloride (98-107) mmol/L BUN (9-20) mg/dL Glucose (74-99) mg/dL POC Glucose (mg/dL) 131 H 136 H (70-110) mg/dL Calcium (8.4-10.2) mg/dL Cortisol 33.4 H (3.1-22.4) UG/DL 03/12/23 03/13/23 03/13/23 Range/Units 23:46 05:33 05:33 WBC 13.1 H (3.8-10.6) k/uL RBC 3.60 L (4.30-5.90) m/uL Hgb 12.5 L (13.0-17.5) gm/dL Hct 36.0 L (39.0-53.0) % Neutrophils # 9.3 H (1.3-7.7) k/uL Monocytes # 1.5 H (0-1.0) k/uL Sodium 135 L (137-145) mmol/L Potassium 2.8 L (3.5-5.1) mmol/L Chloride 96 L (98-107) mmol/L BUN 34 H (9-20) mg/dL Glucose 152 H (74-99) mg/dL POC Glucose (mg/dL) 140 H (70-110) mg/dL Calcium 7.0 L (8.4-10.2) mg/dL Cortisol (3.1-22.4) UG/DL 03/13/23 Range/Units 06:28 WBC (3.8-10.6) k/uL RBC (4.30-5.90) m/uL Hgb (13.0-17.5) gm/dL Hct (39.0-53.0) % Neutrophils # (1.3-7.7) k/uL Monocytes # (0-1.0) k/uL Sodium (137-145) mmol/L Potassium (3.5-5.1) mmol/L Chloride (98-107) mmol/L BUN (9-20) mg/dL Glucose (74-99) mg/dL POC Glucose (mg/dL) 150 H (70-110) mg/dL Calcium (8.4-10.2) mg/dL Cortisol (3.1-22.4) UG/DL Microbiology - Last 24 Hours (Table) 03/10/23 19:30 Blood Culture - Preliminary Blood 03/10/23 17:26 Blood Culture - Preliminary Blood 03/11/23 19:10 Gram Stain - Preliminary Neck Assessment and Plan Assessment: Patient is a 73 year old male who presents with laryngeal mass, suspension for neoplasm, with airway impingement Plan: -Patient to be transfered to [facility]; per ICU nurse admission accepted by [facility] awaiting bed placement -Wean pressor support as tolerated -No acute surgical intervention Amado Ayers MD General Surgery
--- NOTE | 2023-03-13 11:34 | CA ---
Transthoracic Echo Report Name: Sunil Mccarty Age: 73 Gender: M : 1950 Exam Date: 03/12/2023 10:32 Exam Location: [facility] Ht (in): 70 Wt (lb): 115 Ordering Physician: Griffin Engle MD Attending/Referring Phys: Chief Librarian Music Department Mary Reid RDCS Procedure CPT: Indications: lv fxn Cardiac Hx: Pacemaker Technical Quality: Very technically difficult study Contrast 1: Definity Total Dose (mL): 4 Contrast 2: Total Dose (mL): MEASUREMENTS (Male / Female) Normal Values 2D ECHO LV Diastolic Diameter PLAX 3.8 cm 4.2 - 5.9 / 3.9 - 5.3 cm LV Systolic Diameter PLAX 2.6 cm IVS Diastolic Thickness 1.2 cm 0.6 - 1.0 / 0.6 - 0.9 cm LVPW Diastolic Thickness 1.2 cm 0.6 - 1.0 / 0.6 - 0.9 cm LV Relative Wall Thickness 0.6 RV Internal Dim ED PLAX 3.2 cm LA Systolic Diameter LX 4.0 cm 3.0 - 4.0 / 2.7 - 3.8 cm LV Diastolic Volume MOD BP 50.9 cm??? 67 - 155 / 56 - 104 cm??? LV Systolic Volume MOD BP 20.5 cm??? 22 - 58 / 19 - 49 cm??? LV Ejection Fraction MOD BP 59.7 % >= 55 % LV Cardiac Index MOD BP 1532.2 cm???/min???m??? LV Diastolic Volume MOD 4C 54.0 cm??? LV Systolic Volume MOD 4C 23.0 cm??? LV Ejection Fraction MOD 4C 57.4 % LV Cardiac Index MOD 4C 1562.5 cm???/min???m??? LV Diastolic Length 4C 7.2 cm LV Systolic Length 4C 6.5 cm LV Diastolic Volume MOD 2C 48.2 cm??? LV Systolic Volume MOD 2C 17.4 cm??? LV Ejection Fraction MOD 2C 64.0 % LV Cardiac Index MOD 2C 1554.8 cm???/min???m??? LV Diastolic Length 2C 7.3 cm LV Systolic Length 2C 6.0 cm LA Volume 76.2 cm??? 18 - 58 / 22 - 52 cm??? LA Volume Index 48.0 cm???/m??? 16 - 28 cm???/m??? M-MODE Aortic Root Diameter MM 3.6 cm MV E Point Septal Separation 0.5 cm DOPPLER AV Peak Velocity 94.7 cm/s AV Peak Gradient 3.6 mmHg MV Area PHT 4.1 cm??? MV Deceleration Time 184.7 ms TR Peak Velocity 231.9 cm/s TR Peak Gradient 21.5 mmHg Right Ventricular Systolic Press 25.9 mmHg FINDINGS Left Ventricle Mildly increased septal wall thickness. Left ventricular ejection fraction is estimated at 50 %. Small left ventricular cavity. Right Ventricle Normal right ventricular size. Reduced right ventricular global systolic function. Right Atrium Normal right atrial size. Left Atrium Moderately increased left atrial volume. Mildly increased left atrial area. Mitral Valve Structurally normal mitral valve. Trace mitral regurgitation. Aortic Valve Trileaflet aortic valve. No aortic valve stenosis or regurgitation. Tricuspid Valve Structurally normal tricuspid valve. Mild tricuspid regurgitation. Pulmonic Valve Pulmonic valve not well visualized. Pericardium No pericardial effusion. Aorta Normal size aortic root and proximal ascending aorta. CONCLUSIONS Left ventricular ejection fraction 50% Mild increased left ventricular wall thickness Moderately dilated left atrium Trace mitral regurgitation RVSP 26 Previewed by: Dr. Rambo Maza DO (Electronically Signed) Final Date: 13 March 2023 11:31
[2023-03-13 12:01] LABS: Glucose,Whole Blood 130 mg/dL (70-110)
[2023-03-13] MEDS: LORazepam 2 MG/ML INJ IV PRN ×2 (14:13→20:43)
--- NOTE | 2023-03-13 14:20 | P.PN ---
Subjective Progress Note Date: 03/12/23 Principal diagnosis: Reason for follow-up is neck abscess Patient is a 73-year-old male with a past medical history significant for prostate cancer reflux atrial fibrillation patient presenting to the hospital for evaluation of weakness unable to ambulate and mass to the right side of the neck along with some purulent drainage did have abnormal CT suspicious for possible abscess patient was hypotensive requiring admission to the ICU. On today's evaluation that is 03/12/2023 patient denies having any fever or any chills, he is breathing comfortably on 2 L nasal oxygen denies any worsening pain to the neck area denies any chest pain shortness of the cough no abdominal pain or diarrhea. The patient white count slightly up to 19,000 today, creatinine is 1.92 cultures are currently pending Objective - Vital Signs Vital signs: Vital Signs Temp 97.9 F 03/12/23 08:36 Pulse 76 03/12/23 11:15 Resp 23 03/12/23 11:15 BP 90/71 03/12/23 11:15 Pulse Ox 100 03/12/23 11:15 FiO2 Intake & Output 03/11/23 03/12/23 03/12/23 18:59 06:59 18:59 Intake Total 20.783 38.021 370 Output Total 85 Balance 20.783 38.021 285 Weight 52.163 kg Intake: IV 370 Ampicillin-Sulbactam 3 gm 100 In Sodium Chloride 0.9% 100 ml @ 200 mls/hr IVPB Q12H [facility] Rx#:[id number] Invasive Line 4 10 Sodium Chloride 0.9% 1, 260 000 ml @ 130 mls/hr IV . Q7H42M [facility] Rx#:[id number] Intake, IV Titration 20.783 38.021 Amount Norepinephrine 32 mg In 20.783 Sodium Chloride 0.9% 218 ml @ 0.03 MCG/KG/MIN 0. 734 mls/hr IV .Q24H [facility] Rx#:[id number] Vasopressin 60 unit In 38.021 Sodium Chloride 0.9% 150 ml @ 0.03 UNITS/MIN 4.59 mls/hr IV .Q24H [facility] Rx#: [id number] Output: Urine 85 Other: Voiding Method Indwelling Catheter # Bowel Movements 1 - Exam GENERAL DESCRIPTION: An elderly male lying in bed in no distress HEENT: Right sided neck area is currently dressed no drainage on the dressing RESPIRATORY SYSTEM: Unlabored breathing , decreased breath sounds at bases HEART: S1 S2 regular rate and rhythm , ABDOMEN: Soft , no tenderness EXTREMITIES: No edema feet - Labs CBC & Chem 7: 03/13/23 05:33 03/13/23 05:33 Labs: Abnormal Lab Results - Last 24 Hours (Table) 03/12/23 03/12/23 03/12/23 Range/Units 06:39 06:39 07:08 WBC 19.0 H (3.8-10.6) k/uL RBC 4.01 L (4.30-5.90) m/uL MCV 103.3 H (80.0-100.0) fL Neutrophils # 13.7 H (1.3-7.7) k/uL Monocytes # 1.2 H (0-1.0) k/uL Sodium 135 L (137-145) mmol/L Carbon Dioxide 16 L (22-30) mmol/L BUN 42 H (9-20) mg/dL Creatinine 1.92 H (0.66-1.25) mg/dL Glucose 65 L (74-99) mg/dL POC Glucose (mg/dL) 60 L (70-110) mg/dL Calcium 7.3 L (8.4-10.2) mg/dL AST 92 H (17-59) U/L ALT 61 H (4-49) U/L Total Protein 5.4 L (6.3-8.2) g/dL Albumin 2.4 L (3.5-5.0) g/dL 03/12/23 03/12/23 03/12/23 Range/Units 07:30 07:49 11:32 WBC (3.8-10.6) k/uL RBC (4.30-5.90) m/uL MCV (80.0-100.0) fL Neutrophils # (1.3-7.7) k/uL Monocytes # (0-1.0) k/uL Sodium (137-145) mmol/L Carbon Dioxide (22-30) mmol/L BUN (9-20) mg/dL Creatinine (0.66-1.25) mg/dL Glucose (74-99) mg/dL POC Glucose (mg/dL) 54 L 50 L 131 H (70-110) mg/dL Calcium (8.4-10.2) mg/dL AST (17-59) U/L ALT (4-49) U/L Total Protein (6.3-8.2) g/dL Albumin (3.5-5.0) g/dL Microbiology - Last 24 Hours (Table) 03/11/23 19:10 Gram Stain - Preliminary Neck 03/10/23 19:30 Blood Culture - Preliminary Blood 03/10/23 17:26 Blood Culture - Preliminary Blood 03/11/23 01:20 Gram Stain - Preliminary Neck Assessment and Plan (1) Neck abscess Current Visit: Yes Status: Acute Code(s): L02.11 - CUTANEOUS ABSCESS OF NECK SNOMED Code(s): 4171265 (2) Sepsis Current Visit: Yes Status: Acute Code(s): A41.9 - SEPSIS, UNSPECIFIED ORGANISM SNOMED Code(s): 26957912 Plan: 1patient was in the hospital with increasing swelling to the right side of the neck that subsequently started to drain with evidence of muscle on the CT concerning for abscess versus possible malignancy however keeping in mind purulent drainage abscess will be the primary diagnosis unless proven otherwise and likely from gram-positive skin sneha gram-negative not entirely excluded 2-patient with renal insufficiency high risk of nephrotoxicity from vancomycin 3we will keep the patient on Unasyn and daptomycin while waiting for the culture to finalize currently waiting for transfer to [facility] to be evaluated by ENT Dictation was produced using [employer] dictation software. please excuse any grammatical, word or spelling errors. Time with Patient: Less than 30
--- NOTE | 2023-03-13 14:22 | P.PN ---
Subjective Progress Note Date: 03/13/23 Principal diagnosis: Reason for follow-up is neck abscess Patient is a 73-year-old male with a past medical history significant for prostate cancer reflux atrial fibrillation patient presenting to the hospital for evaluation of weakness unable to ambulate and mass to the right side of the neck along with some purulent drainage did have abnormal CT suspicious for possible abscess patient was hypotensive requiring admission to the ICU. On today's evaluation that is 03/13/2023 patient remains to be afebrile, patient requiring low-dose pressor support maintain his blood pressure, patient is breathing comfortably on 2 L nasal oxygen, the patient denies any worsening pain to the neck area denies any chest pain shortness of the cough no abdominal pain or diarrhea has been reported. The patient white count is down to 13.1, creatinine is 1.23 cultures are currently pending Objective - Vital Signs Vital signs: Vital Signs Temp 97.6 F 03/13/23 08:00 Pulse 80 03/13/23 09:15 Resp 11 L 03/13/23 09:15 BP 104/84 03/13/23 09:15 Pulse Ox 97 03/13/23 09:15 FiO2 Intake & Output 03/12/23 03/13/23 03/13/23 18:59 06:59 18:59 Intake Total 1094.360 930 510 Output Total 340 510 135 Balance 754.360 420 375 Weight 57.163 kg 73.9 kg Intake: IV 990 930 510 Ampicillin-Sulbactam 3 gm 100 100 In Sodium Chloride 0.9% 100 ml @ 200 mls/hr IVPB Q12H [facility] Rx#:[id number] Dextrose 5% in Water 1, 600 900 150 000 ml @ 75 mls/hr IV . [id number] [facility] with Sodium Bicarb (1 Meq/ml) 150 ml Rx#:[id number] Invasive Line 4 30 30 10 Potassium Chloride 20 meq 200 In Water For Injection 1 100ml.bag @ 50 mls/hr IVPB Q2H [facility] Rx#: [id number] Sodium Chloride 0.9% 1, 260 000 ml @ 130 mls/hr IV . Q7H42M [facility] Rx#:[id number] Sodium Chloride 0.9% 1, 50 000 ml @ 50 mls/hr IV . Q20H [facility] Rx#:[id number] Intake, IV Titration 104.360 Amount Norepinephrine 32 mg In 60.296 Sodium Chloride 0.9% 218 ml @ 0.18 MCG/KG/MIN 4. 401 mls/hr IV .Q24H [facility] Rx#:[id number] Vasopressin 60 unit In 44.064 Sodium Chloride 0.9% 150 ml @ 0.03 UNITS/MIN 4.59 mls/hr IV .Q24H [facility] Rx#: [id number] Output: Urine 340 510 135 Other: Voiding Method Indwelling Catheter Indwelling Catheter Indwelling Catheter # Bowel Movements 1 - Exam GENERAL DESCRIPTION: An elderly male lying in bed in no distress HEENT: Right sided neck area is currently dressed no drainage on the dressing RESPIRATORY SYSTEM: Unlabored breathing , decreased breath sounds at bases HEART: S1 S2 regular rate and rhythm , ABDOMEN: Soft , no tenderness EXTREMITIES: No edema feet - Labs CBC & Chem 7: 03/13/23 05:33 03/13/23 05:33 Labs: Abnormal Lab Results - Last 24 Hours (Table) 03/12/23 03/12/23 03/12/23 Range/Units 10:17 19:12 23:46 WBC (3.8-10.6) k/uL RBC (4.30-5.90) m/uL Hgb (13.0-17.5) gm/dL Hct (39.0-53.0) % Neutrophils # (1.3-7.7) k/uL Monocytes # (0-1.0) k/uL Sodium (137-145) mmol/L Potassium (3.5-5.1) mmol/L Chloride (98-107) mmol/L BUN (9-20) mg/dL Glucose (74-99) mg/dL POC Glucose (mg/dL) 136 H 140 H (70-110) mg/dL Calcium (8.4-10.2) mg/dL Cortisol 33.4 H (3.1-22.4) UG/DL 03/13/23 03/13/23 03/13/23 Range/Units 05:33 05:33 06:28 WBC 13.1 H (3.8-10.6) k/uL RBC 3.60 L (4.30-5.90) m/uL Hgb 12.5 L (13.0-17.5) gm/dL Hct 36.0 L (39.0-53.0) % Neutrophils # 9.3 H (1.3-7.7) k/uL Monocytes # 1.5 H (0-1.0) k/uL Sodium 135 L (137-145) mmol/L Potassium 2.8 L (3.5-5.1) mmol/L Chloride 96 L (98-107) mmol/L BUN 34 H (9-20) mg/dL Glucose 152 H (74-99) mg/dL POC Glucose (mg/dL) 150 H (70-110) mg/dL Calcium 7.0 L (8.4-10.2) mg/dL Cortisol (3.1-22.4) UG/DL Microbiology - Last 24 Hours (Table) 03/10/23 19:30 Blood Culture - Preliminary Blood 03/10/23 17:26 Blood Culture - Preliminary Blood 03/11/23 19:10 Gram Stain - Preliminary Neck Assessment and Plan (1) Neck abscess Current Visit: Yes Status: Acute Code(s): L02.11 - CUTANEOUS ABSCESS OF NECK SNOMED Code(s): 6840146 (2) Sepsis Current Visit: Yes Status: Acute Code(s): A41.9 - SEPSIS, UNSPECIFIED ORGANISM SNOMED Code(s): 44694104 Plan: 1patient was in the hospital with increasing swelling to the right side of the neck that subsequently started to drain with evidence of muscle on the CT concerning for abscess versus possible malignancy however keeping in mind purulent drainage abscess will be the primary diagnosis unless proven otherwise and likely from gram-positive skin sneha gram-negative not entirely excluded 2-patient with renal insufficiency high risk of nephrotoxicity from vancomycin 3patient did have some clinical improvement patient white count is trending down cultures are currently pending patient is broadly covered with the daptomycin and Unasyn awaiting transfer to [facility] for surgical drainage Dictation was produced using [employer] dictation software. please excuse any grammatical, word or spelling errors. Time with Patient: Less than 30
[2023-03-13] MEDS: VASOPRESSIN 60 UNIT in SODIUM CHLORIDE 0.9% 150 ML IV SCH (16:00)
[2023-03-13 17:51] LABS: Glucose,Whole Blood 100 mg/dL (70-110)
[2023-03-13 18:17] LABS: Magnesium 1.7 mg/dL (1.6-2.3); Potassium 3.1 mmol/L (3.5-5.1)
[2023-03-13] MEDS ORDERED: Magnesium Replacement Protocol 1 EACH MISC MISCELLANE PRN (19:07)
[2023-03-13] MEDS ORDERED: MAGNESIUM SULFATE-D5W PMX 1 GM in DEXTROSE/WATER 1 100ML.BAG IVPB ONE (19:07)
[2023-03-13 20:20] LABS: Glucose,Whole Blood 97 mg/dL (70-110)
--- NOTE | 2023-03-13 23:12 | P.PN ---
Subjective Progress Note Date: 03/13/23 This is a 73 year old male with medical history of atrial fibrillation anticoagulated with xarelto, gastroesophageal reflux disease, prostate cancer with prostatectomy, smoking history 1/2 pack per day and reports occasional marijuana use. Patient comes in to the ER for weakness unable to ambulate and also evaluation of a draining neck mass. Patient follows with Dr Azevedo has not been seen in the office per patient for atleast 1 year. He reports having a "raspy voice" for the last 2 years. He was in to see his director operations broadcast Dr. Johnson earlier this month states his cardiac medications were adjusted. States about 2 weeks ago he noticed swelling in the front of his neck and for the last week or so he has been having purulent drainage from the neck mass. Denies history of lung cancer. He has not been in to see a medical doctor for evaluation of this neck mass. Soft tissue neck CT was done showing no clear evidence of bulky adenopathy or fluid collection in the neck. Within the subglottic airway at the level of the larynx there is abnormal irregular soft tissue density which significantly narrows the airway at this level with a small residual patent passage. Details in report. Primary consideration is neoplasm, this does not have the typical appearance of a fluid collection/abscess, but infection is in the differential. Soft tissue density appears to extend from #3 to the anterior surface of the neck just right of midline. Mild/moderate emphysematous changes in the lung apices. Chest xray is negative for acute findings. Initial blood work reveals white count of 14.5, INR of 1.7, sodium 127, BUN 55, creatinine 2.56, Lactic acid 2.5, proBNP of 5120. Patient has troponin elevation 0.064, 0.073. Urinalysis showing trace protein, large leukocyte esterase, occasional bacterial. Patient is hypotensive on admission BP down to 68/54. He was given 4.5L of normal saline fluid bolus. Admitted to the hospital for sepsis and evaluation of the neck mass which was cultured, and also blood cultures taken. He is requiring levophed and vasopressin support and admitted as an ICU hold currently still in the ER. He has been started on empiric antibiotics with IV vancomycin and IV unasyn. Multiple consultations in place including senior medical technologist, nephrology, cardiology, oncology, ID and radiation/oncologist. 03/12/2023 Patient evaluated in the medical ICU today. He continues to have purulent d rainage from a presumed neck abscess with cultures currently pending. Preliminary showing moderate gram positive cocci he is on course of IV unasyn and IV daptomycin with ID following. Would benefit from drainage of the abscess. There is currently no ENT coverage. Patient remains on Levophed and vasopressin at this time blood pressure 90/60s. He remains afebrile. Oxygen saturation 97% on 2L of oxygen. Discussion with patient he does want treatment would like to know his options. We have pursued transfer for ENT and head/neck surgeon and is pending a MICU bed at [facility] currently has been accepting with Dr. Moses Wood as attending. [facility] at [facility] would not accept to the Surgical ICU and does not have a MICU bed available. [facility] did not accept this patient felt he needed specialists which are available at [facility]. His labs today are showing white count of 19.0, hgb stable 13.8, sodium 135, potassium 3.6, BUN 42, creatinine 1.92. LFTs stable. AM cortisol elevated at 33.4. Multiple consultations following including senior medical technologist, surgery, nephrology, ID, cardiology, oncology. 03/13/2023 Patient is in the ICU. Awake alert and oriented x 3. Currently requiring 2 L oxygen via nasal cannula. Still having purulent drainage from the neck abscess. Patient is also on pressor support with vasopressin and norepinephrine. Otherwise patient is afebrile. Pain is controlled. No nausea or vomiting. Currently nothing by mouth due to failed swallow study. Laboratory data showed WBC 13.1 hemoglobin 12.5 and platelets 253 Sodium 135 potassium 2.8 which is being replaced, chloride 96 BUN 34 and creatinine 1.23 and blood sugar is 1 5020 calcium 7.0. Patient is on antibiotics Unasyn and daptomycin. IV hydration with normal saline at 50 cc/h. Current medications reviewed. Review of Systems Constitutional: Reports fatigue denied any fever. Cardio vascular: denied any chest pain, palpitations Gastrointestinal: denied any nausea, vomiting, diarrhea Pulmonary: Denied any shortness of breath, no cough has raspy voice Neurologic denied any new focal deficits reports weakness All inpatient medications were reviewed and appropriate changes in these medications as dictated in the interval history and assessment and plan. PHYSICAL EXAMINATION: GENERAL: The patient is alert and oriented x3, not in any acute distress. Well developed, well nourished. HEENT: Pupils are round and equally reacting to light. EOMI. No scleral icterus. No conjunctival pallor. Normocephalic, atraumatic. No pharyngeal erythema. No thyromegaly. There is a large neck pass right of midline with thick purulent drainage, non bloody. There is surrounding erythema. Voice is raspy. Poor dentition. CARDIOVASCULAR: S1 and S2 present. No murmurs, rubs, or gallops. PULMONARY: Chest is clear to auscultation, no wheezing or crackles. ABDOMEN: Soft, nontender, nondistended, normoactive bowel sounds. No palpable organomegaly. MUSCULOSKELETAL: No joint swelling or deformity. EXTREMITIES: No cyanosis, clubbing, or pedal edema. NEUROLOGICAL: Gross neurological examination did not reveal any focal deficits. Diffuse weakness. SKIN: No rashes. Assessment and Plan -Neck mass with purulent drainage suspicious for malignancy and necrosis with possible underlying bacterial infection/cellulitis with sepsis present on admission. There is evidence of narrowing of the airway on imaging. There is no ENT coverage. Patient would benefit from transfer to tertiary care center for ENT and head/neck surgeon consultation. Currently accepted at main MICU pending bed have been denied at multiple other hospitals for transfer. Gen surgery following and ID following. Patient continues on antibiotic coverage with IV unasyn and IV daptomycin and cultures are currently pending. -Septic shock requiring fluid resuscitation and on vasopressor support with levophed and vasopressin -Lactic acidosis -Hyponatremia hypovolemic improving with IV fluids patient will be continued on normal saline at 130 mls/hr. -Acute kidney injury due to acute tubular necrosis from sepsis and shock expected to improve with IV fluids, nephrology is placed on consultation -Elevated troponin likely type 2 ID and sepsis, echocardiogram has been ordered, cardiology consultation in place and following. -Hypokalemia from poor oral intake improved with supplementation -Permanent atrial fibrillation anticoagulated with xarelto on an outpatient basis -Hx of AICD and cardiomyopathy with reduced EF -Coronary artery disease and prior stent to the LAD -Hx of prostate cancer with prostatectomy -Hypertension hx currently hypotensive holding lisinopril at this time -Hyperlipidemia resumed on atorvastatin -Severe protein calorie malnutrition with BMI of 16.5 Patient has had recent weight loss of 35 lbs in the last month and also reports difficulty swallowing likely from the neck mass and airway narrowing. -Chronic nicotine use GI prophylaxis DVT prophylaxis with subcu heparin, xarelto is being held at this time while patient is undergo further work up for the next mass. Full Code Objective - Vital Signs Vital signs: Vital Signs Temp 98.7 F 03/13/23 12:00 Pulse 70 03/13/23 15:15 Resp 17 03/13/23 15:15 BP 86/62 03/13/23 15:15 Pulse Ox 95 03/13/23 15:15 FiO2 Intake & Output 03/12/23 03/13/23 03/13/23 18:59 06:59 18:59 Intake Total 1094.360 930 855.636 Output Total 340 510 440 Balance 754.360 420 415.636 Weight 57.163 kg 73.9 kg Intake: IV 990 930 820 Ampicillin-Sulbactam 3 gm 100 100 In Sodium Chloride 0.9% 100 ml @ 200 mls/hr IVPB Q12H [facility] Rx#:[id number] Dextrose 5% in Water 1, 600 900 150 000 ml @ 75 mls/hr IV . [id number] [facility] with Sodium Bicarb (1 Meq/ml) 150 ml Rx#:[id number] Invasive Line 4 30 30 20 Potassium Chloride 20 meq 200 In Water For Injection 1 100ml.bag @ 50 mls/hr IVPB Q2H [facility] Rx#: [id number] Sodium Chloride 0.9% 1, 260 000 ml @ 130 mls/hr IV . Q7H42M [facility] Rx#:[id number] Sodium Chloride 0.9% 1, 350 000 ml @ 50 mls/hr IV . Q20H [facility] Rx#:[id number] Intake, IV Titration 104.360 35.636 Amount Norepinephrine 32 mg In 60.296 Sodium Chloride 0.9% 218 ml @ 0.18 MCG/KG/MIN 4. 401 mls/hr IV .Q24H [facility] Rx#:[id number] Norepinephrine 32 mg In 35.636 Sodium Chloride 0.9% 218 ml @ 0.18 MCG/KG/MIN 4. 401 mls/hr IV .Q24H [facility] Rx#:[id number] Vasopressin 60 unit In 44.064 Sodium Chloride 0.9% 150 ml @ 0.03 UNITS/MIN 4.59 mls/hr IV .Q24H [facility] Rx#: [id number] Output: Urine 340 510 440 Other: Voiding Method Indwelling Catheter Indwelling Catheter Indwelling Catheter # Bowel Movements 1 - Labs CBC & Chem 7: 03/13/23 05:33 03/13/23 17:53 Labs: Abnormal Lab Results - Last 24 Hours (Table) 03/12/23 03/12/23 03/13/23 Range/Units 19:12 23:46 05:33 WBC (3.8-10.6) k/uL RBC (4.30-5.90) m/uL Hgb (13.0-17.5) gm/dL Hct (39.0-53.0) % Neutrophils # (1.3-7.7) k/uL Monocytes # (0-1.0) k/uL Sodium 135 L (137-145) mmol/L Potassium 2.8 L (3.5-5.1) mmol/L Chloride 96 L (98-107) mmol/L BUN 34 H (9-20) mg/dL Glucose 152 H (74-99) mg/dL POC Glucose (mg/dL) 136 H 140 H (70-110) mg/dL Calcium 7.0 L (8.4-10.2) mg/dL 03/13/23 03/13/23 03/13/23 Range/Units 05:33 06:28 11:59 WBC 13.1 H (3.8-10.6) k/uL RBC 3.60 L (4.30-5.90) m/uL Hgb 12.5 L (13.0-17.5) gm/dL Hct 36.0 L (39.0-53.0) % Neutrophils # 9.3 H (1.3-7.7) k/uL Monocytes # 1.5 H (0-1.0) k/uL Sodium (137-145) mmol/L Potassium (3.5-5.1) mmol/L Chloride (98-107) mmol/L BUN (9-20) mg/dL Glucose (74-99) mg/dL POC Glucose (mg/dL) 150 H 130 H (70-110) mg/dL Calcium (8.4-10.2) mg/dL Microbiology - Last 24 Hours (Table) 03/10/23 19:30 Blood Culture - Preliminary Blood 03/10/23 17:26 Blood Culture - Preliminary Blood 03/11/23 19:10 Gram Stain - Preliminary Neck
[2023-03-14] MEDS: ACETAMINOPHEN IV (For NPO) 1,000 MG in EMPTY BAG 1 BAG IVPB SCH ×3 (00:37→13:12)
[2023-03-14] MEDS: AMPICILLIN-SULBACTAM 3 GM in SODIUM CHLORIDE 0.9% 100 ML IVPB SCH ×2 (00:38→08:37)
[2023-03-14] MEDS: NOREPINEPHRINE 32 MG in SODIUM CHLORIDE 0.9% 218 ML IV SCH (00:43)
[2023-03-14] MEDS: HEPARIN SODIUM,PORCINE 5,000 UNIT/ML 1 ML VIAL SQ SCH ×2 (06:17→08:37)
[2023-03-14] MEDS: SODIUM CHLORIDE 0.9% 1,000 ML IV SCH ×2 (06:19→13:31)
--- NOTE | 2023-03-14 08:29 | P.PN ---
Subjective Progress Note Date: 03/14/23 I am seeing this patient in consultation today 03/11/2023 in the emergency room after he presented with chief complaint of draining neck wound. He was weak and found to have low blood pressures on EMS arrival. Patient is a 73-year-old white male with past medical history significant for atrial fibrillation anticoagulated on Xarelto, AICD implantation, hypertension, hyperlipidemia, prostate cancer status post prostatectomy, and is a chronic ongoing tobacco smoker. His primary care provider is Dr. Azevedo. He reportedly lives with a friend. Patient states that he first noticed his neck mass approximately 1-2 weeks ago. He recently opened and started draining a purulent colored drainage. He states that his voice is been hoarse. He's had reduced appetite, and poor oral intake. He's been more weak. He appears emaciated and cachectic. He is reportedly lost about 35 pounds in the last month. EMS was called, on arrival, the patient was found to be hypotensive. On the emergency room, the patient was fluid resuscitated with a total of 4.5 L normal saline bolus. A central line was placed by the ER physician and the right IJ. Patient was then started on vasopressors, in the form of norepinephrine which is infusing at 0.2 mcg/kg/m. Blood cultures have been drawn. Patient has been started on empiric antibiotics. Wound cultures will be taken. A CT of the neck demonstrated an ir regular soft tissue density within the subglottic airway at the level of the larynx which significantly narrows the airway at this level and will use only a small residual passage. This mass is measured at 5.1 cm x 5.1 cm x 4.7 cm. On clinical examination, the patient's neck wound is draining a purulent drainage concerning for infection as well. Patient is currently lying in bed, on 2 L/m nasal cannula, in no acute distress. He is on 2 L/m nasal cannula. SpO2 is 97%. His voice is hoarse. No significant stridor. Patient was given 100 mg of Solu-Cortef. CBC on arrival shows leukocytosis of his count of 14.5, globin 15.4, hematocrit 43.6, platelets 334. BMP shows sodium 127, potassium 3.6, chloride 79, serum bicarbonate 36, BUN 55, creatinine 2.56, glucose 82. Lactic acid level was elevated at 2.5 times is now 1.7. Troponins mildly elevated at 0.064 and 0.073 respectively. NT proBNP is 5120. Chest x-ray did not show any pulmonary mass or congestion or cardiomegaly. No focal consolidation or evidence of pneumonia either. There is an implanted AICD/pacemaker. ECG shows a ventricular paced rhythm. Patient is currently afebrile. Blood pressure remains hypotensive, We'll likely have to add a second vasopressor. Patient does have indwelling urinary catheter, and urine appears concentrated. I saw and evaluated this patient in the emergency department. I also reviewed the CAT scan of the neck. There is significant compromise of the upper airway probably related to an abscess which is draining externally at this point in time. Diastasis tunneled exteriorly and the patient has a an open draining possible over the anterior neck area which is purulent and foul-smelling. The patient despite this is awake and alert. He is hypotensive and hemodynamically unstable and he was aggressively resuscitated with IV fluids in the is also on pressors. He has a raspy voice. Minimal end inspiratory stridor is also appreciated in the neck area. He has very poor dental condition. Is a chronic smoker and he is also a chronic alcohol drinker. CAT scan of the abdomen and pelvis was also done that showed moderate bilateral pleural effusions and ascites with mild anas arca as the patient admits to drinking a pint of liquor on a daily basis. Comorbid conditions include coronary artery disease with previous stenting of the LAD, cardiomyopathy with an ejection fraction of 20% with history of AICD placement, history of A. fib, hypertension, hyperlipidemia, prostate cancer, COPD, alcoholism, smoking, previous history of melanoma that has been resected from the face On today's evaluation of 03/12/2023, the patient continues to have a raspy voice. He does have a draining abscess over the neck with purulent drainage as noted. Cultures are still pending for now. He remains on ABX. He is awake and alert and communicating. He does have some minimal end inspiratory stridor. Nevertheless, he does not have any significant respiratory distress at this point in time. No altered mentation. He remains hypotensive and the patient remains on a combination of norepinephrine running at 0.18 microvascular kilogram per minute and he is also on physiologic dose of vasopressin. He is a triple-lumen catheter in his right IJ. In terms of his cardiac rhythm, he is in atrial fibrillation with a controlled rate. His previous echocardiogram has revealed an ejection fraction of 20% and the patient has an AICD in place. Follow-up blood work today that showed a sodium level of 135, potassium of 3.6, chloride is 19 with a bicarb of 16. BUN is at 42 with a creatinine of 1.9. The patient has a white cell count of 19 with a hemoglobin 15.6 and a platelet count of 313. Is currently on oxygen at 4 L/m nasal cannula. His antibiotic coverage including combination of Unasyn and daptomycin. ENT declined the consultation On 03/13/2023, I'm seeing the patient for a follow-up. He remains on 2 L of oxygen by nasal cannula. No stridor. No respiratory distress. He is able to speak in the voice is raspy. The neck abscess is still draining externally and the Gram stain is positive for gram-positive cocci. The white cell count is improving. The renal function is improving. He remains on pressors and the patient on norepinephrine running at 0.1 mcg/kg/m and vasopressin physiologic dose. Pressors are being gradually weaned off. No altered mentation. No fever. No respiratory distress. He failed the swallow evaluation and based on that the patient was kept nothing by mouth. The white cell count on 213, hemoglobin was 12.5, knee and is at 34 with a creatinine of 1.2. Potassium levels at 2.8 and sodium level is at 135. His serum cortisol is at 33. Antibiotic coverage included a combination of Unasyn and daptomycin. No other significant events overnight. Is awake and alert and communicating. He has a right IJ triple lumen catheter in place. 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 When the process of making arrangements for this patient to be transferred to [facility]. He needs complex intervention, ENT evaluation, tracheostomy tube insertion, PEG tube insertion, surgical debridement and evaluation of his upper airway. ENT in our facility declined the consult. On 03/14/2023, the patient is being seen in the intensive care unit for a follow-up. I had told with a pleasure to meet his daughter was currently at the bedside. As mentioned earlier, the patient has a neck abscess causing airway compromise. However, the patient has been stable on 4 L of oxygen by nasal cannula. He was quite septic emboli admission and he still on pressors. Cultures are still pending and they're gram-positive cocci from the purulent drainage from his neck. He remains on Unasyn and daptomycin. His pressor requirements are improved and the patient's norepinephrine is running at 0.08 mcg/kg/m and vasopressin physiologic dose. He is on IV fluids currently at 50 mL an hour. He has demonstrated improvement output. Creatinine is down to 1.23 from yesterday. Note that I have been trying to transfer this patient to a tertiary care facility. During this time, were able to obtain a bed assignment at [facility]. However, overnight, the patient had a change in mind and he is aware of his poor prognosis and he wanted to proceed with hospice care. As such, hospice services is consulted. A blood work from today and the patient has refused to have a blood draw. Meanwhile, he continues to have purulent drainage from his neck. Antibiotics are still being utilized in addition to pressors. He is nothing by mouth. He has failed the swallow. Is awake and alert and coherent. Interested in hospice care at this point in time. Objective - Vital Signs Vital signs: Vital Signs Temp 97.0 F L 03/14/23 04:00 Pulse 70 03/14/23 07:00 Resp 19 03/14/23 07:00 BP 90/73 03/14/23 07:00 Pulse Ox 90 L 03/14/23 06:30 FiO2 Intake & Output 03/13/23 03/14/23 03/14/23 18:59 06:59 18:59 Intake Total 1225.979 889.470 Output Total 600 625 Balance 625.979 264.470 Weight 74 kg Intake: IV 1080 880 Ampicillin-Sulbactam 3 gm 200 In Sodium Chloride 0.9% 100 ml @ 200 mls/hr IVPB Q12H [facility] Rx#:[id number] Dextrose 5% in Water 1, 150 000 ml @ 75 mls/hr IV . [id number] ONE with Sodium Bicarb (1 Meq/ml) 150 ml Rx#:[id number] Invasive Line 4 30 30 Magnesium Sulfate-D5w Pmx 100 1 gm In Dextrose/Water 1 100ml.bag @ 100 mls/hr IVPB ONCE ONE Rx#: [id number] Potassium Chloride 20 meq 200 In Water For Injection 1 100ml.bag @ 50 mls/hr IVPB Q2H [facility] Rx#: [id number] Potassium Chloride 20 meq 100 In Water For Injection 1 100ml.bag @ 50 mls/hr IVPB Q2H [facility] Rx#: [id number] Sodium Chloride 0.9% 1, 500 650 000 ml @ 50 mls/hr IV . Q20H [facility] Rx#:[id number] Intake, IV Titration 145.979 9.470 Amount Norepinephrine 32 mg In 35.819 9.470 Sodium Chloride 0.9% 218 ml @ 0.18 MCG/KG/MIN 4. 401 mls/hr IV .Q24H [facility] Rx#:[id number] Vasopressin 60 unit In 110.16 Sodium Chloride 0.9% 150 ml @ 0.03 UNITS/MIN 4.59 mls/hr IV .Q24H [facility] Rx#: [id number] Output: Urine 600 625 Other: Voiding Method Indwelling Catheter Indwelling Catheter # Bowel Movements 1 1 - Exam GENERAL EXAM: Alert, 73-year-old white male cachectic and weak, fairly comfortable in no apparent distress. The patient is currently on 4 L of oxygen by nasal cannula. HEAD: Normocephalic and atraumatic EYES: Normal reaction of pupils, equal size. NOSE: Clear with pink turbinates. THROAT: There is very poor dentition. No erythema or exudates. NECK: There is an anterior soft tissue mass with purulent draining fluid. No stridor evaluated today CHEST: No chest wall deformity. There is a soft tissue mass anterior midline. LUNGS: Equal air entry with no crackles, wheeze, rhonchi or dullness. On 2 L/m nasal cannula. SpO2 is 97%. No conversational dyspnea or accessory muscle use.. CVS: S1 and S2 normal with no audible murmur, regular rhythm. No extra heart sounds ABDOMEN: No hepatosplenomegaly, active bowel sounds, no guarding or rigidity. SPINE: No scoliosis or deformity SKIN: No rashes CENTRAL NERVOUS SYSTEM: No focal deficits, tone is normal in all 4 extremities. EXTREMITIES: There is no peripheral edema, clubbing, or cyanosis. Peripheral pulses are intact. - Labs CBC & Chem 7: 03/13/23 05:33 03/13/23 17:53 Labs: Abnormal Lab Results - Last 24 Hours (Table) 03/13/23 03/13/23 Range/Units 11:59 17:53 Potassium 3.1 L (3.5-5.1) mmol/L POC Glucose (mg/dL) 130 H (70-110) mg/dL Microbiology - Last 24 Hours (Table) 03/10/23 19:30 Blood Culture - Preliminary Blood 03/10/23 17:26 Blood Culture - Preliminary Blood Assessment and Plan Plan: Neck mass/abscess draining exteriorly and acid tunneled and the patient has an open draining wound with purulent foul-smelling material coming out of the area over the anterior neck. There is some swelling of the neck anteriorly. The same time, CAT scan of the neck shows irregular soft tissue density in the subglottic area causing airway compromise and significant narrowing of the subglottic airway and there is a soft tissue density measuring approximately 5 cm in size. The patient remains a raspy voice and on today's evaluation, he has no stridor. The patient is currently admitted to the intensive care unit. No interval change since yesterday. The abscess is still draining exteriorly with purulent drainage noted. Cultures are still pending. The Gram stain is showing gram-positive cocci. The patient continues to drain purulent material from the neck wounds. No signs of any respiratory compromise for now and he remains on 4 L of oxygen by nasal cannula. Patient is interested in hospice care and he has declined transferred to [place] for further evaluation and treatment. sepsis and septic shock, refractory to fluid resuscitation, currently requiring vasopressors, currently on a combination of norepinephrine and vasopressin Cardiomyopathy with an ejection fraction less than 20%, repeat echocardiogram shows improvement LV function and ejection fraction is up to 50% Proximal atrial fibrillation with previous cardioversion and the patient is currently V paced Acute kidney injury, related to hypotension and shock, creatinine continues to improve Non-anion gap metabolic acidosis, recovered Possible UTI, awaiting cultures Hypovolemic hyponatremia, possibly related to poor oral intake, stable Severe protein calorie malnutrition and cachexia Elevated troponins, possibly related to supply/demand mismatch and sepsis History of atrial fibrillation, normally anticoagulated on Xarelto History of implanted AICD/pacemaker, currently V-paced rhythm Troponin leak secondary to above History of hypertension History of hyperlipidemia History of prostate cancer status post prostatectomy Chronic ongoing tobacco dependence Alcoholism Ascites and diffuse anasarca Poor dental condition and multiple decayed teeth Poor medical follow-up and his last office evaluation of his primary care physician was more than a year ago. Plan: The patient will be kept nothing by mouth Continue oxygen at 4 L Continue Unasyn and daptomycin Continue pressors We'll cancel the transfer to [facility] Hospice services consulted Obviously, this patient would need a tracheostomy tube insertion, PEG tube insertion, surgical debridement, evaluation of the upper airway by ENT, and he has no interest in proceeding with both above interventions. Daughter is at the bedside. The rest of the family was also informed of his decision. Condition is critical at this point in time. Spend more than 30 minutes in discussion, discussing prognosis and counseling Continue to follow. Keep in ICU. No stridor. No signs of any respiratory distress. We'll keep the patient monitored in the intensive care unit for the time being Time with Patient: Greater than 30
[2023-03-14] MEDS: FAMOTIDINE 20 MG/2 ML VIAL IV SCH (08:37)
--- NOTE | 2023-03-14 10:01 | P.PN ---
Subjective Patient is seen in follow-up for acute kidney injury. Nonoliguric. Family present at bedside. Patient wishes to go hospice. Vital signs are stable. On vasopressor support. General: No acute distress. HEENT Neck dressing noted. No drainage.: LUNGS: No audible rhonchi or wheezes. HEART: Rate and Rhythm are regular. ABDOMEN: Nontender. EXTREMITITES: No edema. Objective - Vital Signs Vital signs: Vital Signs Temp 97.6 F 03/14/23 08:30 Pulse 70 03/14/23 09:00 Resp 27 H 03/14/23 09:00 BP 90/74 03/14/23 09:00 Pulse Ox 92 L 03/14/23 09:00 FiO2 Intake & Output 03/13/23 03/14/23 03/14/23 18:59 06:59 18:59 Intake Total 1225.979 889.470 203.757 Output Total 600 625 30 Balance 625.979 264.470 173.757 Weight 74 kg Intake: IV 1080 880 190 Ampicillin-Sulbactam 3 gm 200 100 In Sodium Chloride 0.9% 100 ml @ 200 mls/hr IVPB Q12H [facility] Rx#:[id number] Dextrose 5% in Water 1, 150 000 ml @ 75 mls/hr IV . [id number] ONE with Sodium Bicarb (1 Meq/ml) 150 ml Rx#:[id number] Invasive Line 4 30 30 Magnesium Sulfate-D5w Pmx 100 1 gm In Dextrose/Water 1 100ml.bag @ 100 mls/hr IVPB ONCE ONE Rx#: [id number] Potassium Chloride 20 meq 200 In Water For Injection 1 100ml.bag @ 50 mls/hr IVPB Q2H [facility] Rx#: [id number] Potassium Chloride 20 meq 100 In Water For Injection 1 100ml.bag @ 50 mls/hr IVPB Q2H [facility] Rx#: [id number] Sodium Chloride 0.9% 1, 500 650 90 000 ml @ 50 mls/hr IV . Q20H [facility] Rx#:[id number] Intake, IV Titration 145.979 9.470 13.757 Amount Norepinephrine 32 mg In 35.819 9.470 13.757 Sodium Chloride 0.9% 218 ml @ 0.18 MCG/KG/MIN 4. 401 mls/hr IV .Q24H [facility] Rx#:[id number] Vasopressin 60 unit In 110.16 Sodium Chloride 0.9% 150 ml @ 0.03 UNITS/MIN 4.59 mls/hr IV .Q24H [facility] Rx#: [id number] Output: Urine 600 625 30 Other: Voiding Method Indwelling Catheter Indwelling Catheter # Bowel Movements 1 1 - Labs CBC & Chem 7: 03/13/23 05:33 03/13/23 17:53 Labs: Abnormal Lab Results - Last 24 Hours (Table) 03/13/23 03/13/23 Range/Units 11:59 17:53 Potassium 3.1 L (3.5-5.1) mmol/L POC Glucose (mg/dL) 130 H (70-110) mg/dL Microbiology - Last 24 Hours (Table) 03/11/23 01:20 Gram Stain - Final Neck Wound Culture - Final Streptococcus viridans group 03/11/23 19:10 Gram Stain - Final Neck Wound Culture - Final 03/10/23 19:30 Blood Culture - Preliminary Blood 03/10/23 17:26 Blood Culture - Preliminary Blood Assessment and Plan Plan: Assessment: 1. Acute kidney injury secondary to ATN secondary to septic shock. Creatinine was 2.56 on admission - 1.23 yesterday. Baseline creatinine from 2020 0.7-0.8. No hydronephrosis noted on CAT scan. 2. Metabolic acidosis secondary to acute kidney injury and IV fluids. Improved with bicarbonate drip. 3. Septic shock secondary to Neck mass/abscess on IV antibiotics. On vasopressors. Neck mass possibly malignant. 4. Chronic systolic CHF with ejection fraction of less than 20% status post AICD. 5. Hypokalemia from poor intake and intracellular shifting from IV bicarb. 6. Hypovolemic hyponatremia improved with IV fluids. Stable. Plan: Maintain normal saline. Wean vasopressors. Patient wishes to go hospice. Refusing blood draws. Also refused transfer to [facility] last night. Family present at bedside.
--- NOTE | 2023-03-14 12:15 | P.PN ---
Progress Note - Text Progress Note Date: 03/14/23 This patient was on my list. He was not seen by myself. I was told by ICU team that he was made comfort care today. We will remove from my list. Please reconsult if needed.
[2023-03-14 12:21] LABS: Glucose,Whole Blood 87 mg/dL (70-110)
[2023-03-14 13:15] VITALS: BP 91/69; PULSE 70; RESP 15; TEMP 97.5
[2023-03-14] MEDS: LORazepam 2 MG/ML INJ IV PRN (13:28)
== END 2023-03-14 13:28 | disposition hospice, inpatient (51) | DRG 871 ==
LOC: EC 16:31 → 3SCARD 22:43 → 2SICU 03-11 03:44
PROVIDERS: ADMIT Hospitalist; ATTEND Hospitalist
PROC: 3E043XZ Introduction of Vasopressor into Central Vein, Percutaneous Approach (ICD-10-PCS; principal; 2023-03-10)
PROC: 02HV33Z Insertion of Infusion Device into Superior Vena Cava, Percutaneous Approach (ICD-10-PCS; principal; 2023-03-10)
DX: A41.9 Sepsis, unspecified organism (principal); E43 Unspecified severe protein-calorie malnutrition; I21.A1 Myocardial infarction type 2; N17.0 Acute kidney failure with tubular necrosis; R65.21 Severe sepsis with septic shock; E87.1 Hypo-osmolality and hyponatremia; E87.20 Acidosis, unspecified; I42.9 Cardiomyopathy, unspecified; I48.21 Permanent atrial fibrillation; I50.22 Chronic systolic (congestive) heart failure; L02.11 Cutaneous abscess of neck; R18.8 Other ascites; R64 Cachexia; N39.0 Urinary tract infection, site not specified; Z68.1 Body mass index [BMI] 19.9 or less, adult; I11.0 Hypertensive heart disease with heart failure; F10.20 Alcohol dependence, uncomplicated; J44.9 Chronic obstructive pulmonary disease, unspecified; E78.5 Hyperlipidemia, unspecified; E86.0 Dehydration; E86.1 Hypovolemia; E87.6 Hypokalemia; Z51.5 Encounter for palliative care; Z66 Do not resuscitate; F17.210 Nicotine dependence, cigarettes, uncomplicated; F41.9 Anxiety disorder, unspecified; I25.10 Atherosclerotic heart disease of native coronary artery without angina pectoris; J38.7 Other diseases of larynx; K02.9 Dental caries, unspecified; R13.10 Dysphagia, unspecified; Z79.01 Long term (current) use of anticoagulants; Z79.82 Long term (current) use of aspirin; Z79.899 Other long term (current) drug therapy; Z85.46 Personal history of malignant neoplasm of prostate; Z85.820 Personal history of malignant melanoma of skin; Z90.79 Acquired absence of other genital organ(s); Z95.5 Presence of coronary angioplasty implant and graft; Z95.810 Presence of automatic (implantable) cardiac defibrillator; Z91.199 Patient's noncompliance with other medical treatment and regimen due to unspecified reason
CPT/HCPCS: 36415; 36556; 70490; 71045; 74176; 80048; 80053; 80202; 81001; 82533; 83605; 83735; 83880; 84100; 84132; 84443; 84484; 85025; 85610; 85730; 86140; 87040; 87070; 87075; 87077; 87186; 87205; 93005; 93306; 94640; 96361; 96365; 96366; 96367; 96368; 96375; 96376; 99291

== ENCOUNTER 2023-03-14 13:12 | Inpatient (IN) | payer MEDICAID ==
[2023-03-14] MEDS ORDERED: ONDANSETRON 4 MG/2 ML VIAL IVP PRN (13:16)
[2023-03-14] MEDS ORDERED: LORazepam 2 MG/ML INJ IV PRN (13:16)
[2023-03-14] MEDS ORDERED: MORPHINE SULFATE 4 MG/ML SYRINGE IV PRN (13:16)
[2023-03-14] MEDS ORDERED: NOREPINEPHRINE 4 MG in SODIUM CHLORIDE 0.9% 250 ML IV SCH (15:00)
[2023-03-14] MEDS: VASOPRESSIN 60 UNIT in SODIUM CHLORIDE 0.9% 150 ML IV SCH (15:00)
[2023-03-14 20:34] LABS: Glucose,Whole Blood 90 mg/dL (70-110)
[2023-03-15] MEDS: VASOPRESSIN 60 UNIT in SODIUM CHLORIDE 0.9% 150 ML IV SCH (02:32)
[2023-03-15 04:10] VITALS: PULSE 70
[2023-03-15 08:24] VITALS: TEMP 97
[2023-03-15 10:31] VITALS: BP 81/60
[2023-03-15 11:21] VITALS: RESP 25
== END 2023-03-15 12:07 | disposition hospice, inpatient (51) | DRG 951 ==
LOC: 2SICU 13:31
PROVIDERS: ADMIT Internal Medicine; ATTEND Internal Medicine
DX: Z51.5 Encounter for palliative care (principal); A41.9 Sepsis, unspecified organism; E43 Unspecified severe protein-calorie malnutrition; I21.A1 Myocardial infarction type 2; N17.0 Acute kidney failure with tubular necrosis; R65.21 Severe sepsis with septic shock; Z68.1 Body mass index [BMI] 19.9 or less, adult; R64 Cachexia; C76.0 Malignant neoplasm of head, face and neck